=== PATIENT | female | born 1990 | race Caucasian/White ===

== ENCOUNTER 2019-09-14 16:13 | Emergency (ER) | payer SELFPAY ==
[2019-09-14 16:14] VITALS: BP 155/117; PULSE 100; RESP 16; TEMP 36.8; O2SAT 100; BMI 28.7
--- NOTE | 2019-09-14 16:50 | W.ED.GENADLT ---
HPI - General Adult General: Chief complaint: Dental/Oral Stated complaint: JAW PAIN Time Seen by Provider: 09/14/19 16:45 History of Present Illness: HPI narrative: Patient complains about dental abscess the last 2 to 3 days worsening does have pain and swelling. MD complaint: Dental abscess Onset (ago): day(s) Location: mouth (Dental) Severity scale (1-10): 5 Quality: aching Pain Consistency: constant Exacerbating factors: other Associated symptoms: Reports no associated symptoms; Deny chest pain, dyspnea, headache(s), nausea, rash or vomiting Review of Systems Const: Denies: fever, chills or body aches Eyes: Denies: change in vision or blurry vision ENMT: Reports: dental pain; Denies: throat pain or nasal congestion Card: Denies: chest pain or shortness of breath on exertion Resp: Denies: shortness of breath, productive cough or non-productive cough GI: Denies: abdominal pain, nausea or vomiting Musc: Denies: extremity pain Skin/Breast: Denies: rash Neuro: Denies: headache Psych: Denies: anxiety or depression Claude/Lymph: Denies: easy bruising PFS ED PFSH: Social History Smoking and tobacco status: current every day smoker Female Reproductive History: Date of last menstrual period: 08/31/19 Physical Exam Const: COMMON NORMALS: no apparent distress, average body habitus and oriented x3 HENMT: COMMON NORMALS: normocephalic HEAD & SCALP: normal to inspection and normocephalic FACE & SINUS: normal facial exam TEETH & GINGIVA IMAGES: 1. Abscess 29 tooth tooth is fractured and has caries. Eye: COMMON NORMALS: conjunctivae normal GENERAL EYE: normal appearance of both eyes CONJUNCTIVA: Yes conjunctivae normal Neck/C-Spine: COMMON NORMALS: no JVD Chest: COMMONS NORMALS: inspection of chest normal Resp: COMMON NORMALS: normal respiratory effort and clear to auscultation bilaterally AUSCULTATION: clear to auscultation bilaterally Cardio: COMMON NORMALS: no JVD, regular rate and regular rhythm RATE: regular rate RHYTHM: regular rhythm GI: COMMON NORMALS: normal to inspection, nondistended, normoactive bowel sounds Extremity: COMMON NORMALS: normal to inspection and full ROM Neuro: COMMON NORMALS: oriented x3 Course Vital Signs: Vital signs: Vital Signs Temperature 98.2 F 09/14/19 16:14 Pulse Rate 100 09/14/19 16:14 Respiratory Rate 16 09/14/19 16:14 Blood Pressure 155/117 09/14/19 16:14 Pulse Oximetry 100 09/14/19 16:14 Discharge Plan Discharge Patient Disposition: Home, Self-Care Clinical Impression: Dental caries, Dental abscess Condition: Stable Prescriptions: New clindamycin HCl 300 mg capsule 300 mg PO TID 7 Days Qty: 21 RF: 0 tramadol 50 mg tablet 50 mg PO Q6H PRN (Reason: pain) Qty: 10 RF: 0 Discharge Orders: Discharge Order (Routine); Ordered 09/14/19 Ordered By: Brian Allen Discharge Diet: Advance as tolerated Discharge Activity: Resume usual activity Patient Instructions: Dental Abscess (ED) Activity Restrictions/Additional Instructions: Follow-up with medical provider as directed. Take medications as prescribed. Return to the ER or your medical provider if condition worsens. Please read and understand discharge instructions. If any questions ask please. Follow-up with dentist as soon as possible can visit [facility] [place] on Friday night at 6:00 for tooth extraction. Coding Level of Care Code ED Transportation Operations Manager for Adrianna Grier
[2019-09-14 17:03] VITALS: BP 145/106; PULSE 98; RESP 20; O2SAT 96
== END 2019-09-14 17:04 | disposition home or self-care (01) ==
PROVIDERS: Emergency Provider Nurse Practitioner Family
DX: K04.7 Periapical abscess without sinus (principal); K02.9 Dental caries, unspecified; F17.200 Nicotine dependence, unspecified, uncomplicated
CPT/HCPCS: 12345; 99281

== ENCOUNTER 2019-11-30 03:58 | Emergency (ER) | payer SELFPAY ==
[2019-11-30 04:02] VITALS: BP 158/90; PULSE 118; RESP 22; TEMP 36.8; O2SAT 100; BMI 29.7
--- NOTE | 2019-11-30 04:02 | XR_ITS ---
WS: [id number] LEFT ANKLE: 3 VIEW(S) TECHNIQUE: AP, oblique(s) and lateral. HISTORY: Injury/pain COMPARISON: None available. Normal anatomic alignment with no fracture or dislocation. No joint effusion or widening of the ankle mortise. No significant degenerative changes at the joint spaces. No soft tissue abnormality. XR/XR ankle LT min 3V* [id number] IMPRESSION: Normal LEFT ankle.
--- NOTE | 2019-11-30 04:02 | XRR_ITS ---
PROCEDURE INFORMATION: Exam: XR Left Foot Complete Exam date and time: 11/30/2019 4:21 AM Age: 29 years old Clinical indication: Injury or trauma; Fall; Initial encounter; Sprain or strain; Foot; Left; Additional info: Injury/pain TECHNIQUE: Imaging protocol: XR Left foot. Views: 3 or more views. COMPARISON: No relevant prior studies available. FINDINGS: Bones/joints: Normal. Soft tissues: Soft tissue swelling or subcutaneous edema at 5th MTP joint. XR/XR foot LT min 3V* [id number] IMPRESSION: No acute bony findings
--- NOTE | 2019-11-30 04:03 | ED_ITS ---
HPI - Extremity Injury (Lower) General: Chief Complaint: Fall Stated Complaint: left foot injury Time Seen by Provider: 11/30/19 04:00 History of Present Illness: HPI Narrative: Rowan is a nice 29-year-old female who states last night she fell twisting her left foot and ankle. She has increased pain on weightbearing but denies any distal numbness or weakness. She denies any injury above the ankle specifically to the tib-fib area or to the knee. She is not tried anything for this up to this point other than trying to not bear weight. Review of Systems General: Reports: 10 or more systems reviewed and unremarkable except in HPI and below PFSH ED PFSH: Medical History ADHD Substance abuse Social History Smoking and tobacco status: current every day smoker Female Reproductive History: Date of last menstrual period: 08/31/19 Physical Exam Const: COMMON NORMALS: no acute distress, patient oriented x3 and no limitat ions Resp: COMMON NORMALS: normal respiratory effort, No retractions, No use of accessory muscles and clear to auscultation bilaterally AUSCULTATION: clear to auscultation bilaterally Cardio: COMMON NORMALS: regular rate and regular rhythm RATE: regular rate RHYTHM: regular rhythm Extremity: OTHER: Left ankle and foot without swelling or ecchymosis. Patient is diffusely tender to palpation. She is neurovascularly intact with a strong DP pulse and sensation intact to light touch in all areas. I see no sign of joint instability. Capillary refill is less than 3 seconds. Patient has full range of motion although appears to have some pain with doing so. Ambulation was not tested secondary to pain. Neuro: COMMON NORMALS: patient oriented x3 Course Vital Signs: Vital signs: Vital Signs Temperature 98.3 F 11/30/19 04:02 Pulse Rate 74 11/30/19 05:01 Respiratory Rate 18 11/30/19 05:01 Blood Pressure 134/76 11/30/19 05:01 Pulse Oximetry 100 11/30/19 05:01 MDM - Extremity Injury (Lower) MDM Narrative: Medical decision making narrative: Patient is neurovascularly intact and her x-rays show no sign of fracture. Believe she is likely had a severe sprain. Going to discharge her home with supportive care and she can follow-up with [facility] Tapia if her symptoms persist. Imaging Data^: Left Ankle: My impression: No acute fractures or dislocations Left Foot: My impression: No acute fractures or dislocations Discharge Plan Discharge Patient Disposition: Home, Self-Care Clinical Impression: Ankle sprain Qualifiers: Encounter type: initial encounter Involved ligament of ankle: unspecified ligament Laterality: left Qualified Code(s): S93.402A - Sprain of unspecified l igament of left ankle, initial encounter Condition: Stable Prescriptions: No Action tramadol 50 mg tablet 50 mg PO Q6H PRN (Reason: pain) Qty: 10 RF: 0 Discharge Orders: Discharge Order (Routine); Ordered 11/30/19 Ordered By: Gwendolyn Almanza Referrals: Bud Tapia DPM [Physician] - 1-3 days Discharge Diet: Advance as tolerated Discharge Activity: Limit activity as instructed Patient Instructions: Ankle Sprain (ED) Activity Restrictions/Additional Instructions: Please return to the ER immediately for any of the signs or symptoms listed on your discharge instruction sheets, worsening/changing of your symptoms, you are not getting better as quickly as expected, or for ANY other cause or concerns. Use your crutches and splint at all times until your pain is gone. If you continue to have discomfort for more than 2 days be certain to follow-up with the orthopedist of your choice or [facility] Tapia for further evaluation. Discharge Date/Time: 11/30/19 05:05 Coding Level of Care Code ED Resistor Testing Machine Operator for Adrianna Fwjoseph Exam Expanded Problem Focused
[2019-11-30] MEDS: HYDROcodone-acetaminophen 5-325 mg Tablet 1 TAB PO (04:35)
[2019-11-30 05:01] VITALS: BP 134/76; PULSE 74; RESP 18; O2SAT 100
--- NOTE | 2019-11-30 08:24 | DCPLANNER ---
Addendum entered by Macey Bhatia 11/30/19 15:12: Pat from ortho called manager case, stating that after patients information was reviewed by Dr. Tapia, that patient needs to follow up with primary care, and if still having pain in a week, then primary care can refer patient back to orho. Pat stated that she tried to call patient, and was unable to reach patient at this time. Original Note: manager training had a message to schedule a follow up appointment for patient with ortho. manager training called the ortho clinic, spoke with Pat, gave clinic patients information. manager training was told that patients information would be printed and reviewed. Clinic will call manager case and patient with appointment information.
--- NOTE | 2019-12-22 08:16 | DCPLANNER ---
After patients information was reviewed, it is recommended that patient follow up with primary care. If patient continues to have pain, then have primary care refer back to ortho. Clinic called patient and informed patient of this.
== END 2019-11-30 05:05 | disposition home or self-care (01) ==
PROVIDERS: Emergency Provider Emergency Medicine
DX: S93.402A Sprain of unspecified ligament of left ankle, initial encounter (principal); X50.1XXA Overexertion from prolonged static or awkward postures, initial encounter; F17.210 Nicotine dependence, cigarettes, uncomplicated
CPT/HCPCS: 12345; 29515; 73610; 73630; 99283; E0114

== ENCOUNTER 2020-02-05 14:39 | Emergency (ER) | payer SELFPAY ==
[2020-02-05 14:42] VITALS: BP 171/102; PULSE 89; RESP 18; TEMP 36.3; O2SAT 98; BMI 30.5
--- NOTE | 2020-02-05 15:05 | W.ED.NAVMDI ---
Documented by User: Risa De La Fuente ANGÉLICA Dye 02/05/20 17:41 HPI - Nausea/Vomiting/Diarrhea General: Chief complaint: Nausea/Vomiting/Diarrhea Stated complaint: abd and back pain, n/v Time Seen by Provider: 02/05/20 14:52 History of Present Illness: HPI Narrative: 29-year-old female patient presents to the emergency department with approximately 1 month history of nausea vomiting diarrhea. She reports nausea vomiting with diarrhea on and off. Reports ate chicken this a.m. without any vomiting but ate a peach just prior to arrival and did experience vomiting. She reports diarrhea 5-6 times this morning. She denies hematemesis or hematochezia, states night sweats, previous use of methamphetamine, substance abuse, with last use approximately 1 year ago. She denies EtOH use MD elicited complaint: nausea, vomiting, diarrhea and abdominal pain Description of vomiting: food contents and watery Associated nausea: Yes Location of pain: Suprapubic Pain consistency: intermittent Severity: moderate Quality: cramping Associated symtoms: Reports nausea; Denies chest pain, diaphoresis, dysuria, headache(s) or palpitations Review of Systems General: Reports: 10 or more systems reviewed and unremarkable except in HPI and below Const: Denies: fever(s) or diaphoresis Eyes: Denies: blurry vision or eye redness ENMT: Denies: throat pain, dental pain or disequilibrium Card: Denies: chest pain, palpitations or irregular heart rhythm Resp: Denies: dyspnea, productive cough or wheezing GI: Reports: abdominal pain, nausea, vomiting and diarrhea; Denies: constipation : Denies: difficulty voiding or dysuria Musc: Denies: back pain Skin/Breast: Denies: rash or pruritus Neuro: Denies: headache(s), weakness in extremities or behavioral changes Claude/Lymph: Denies: easy bruising PFSH ED PFSH: Medical History ADHD Substance abuse Social History Smoking and tobacco status: current every day smoker Female Reproductive History: Date of last menstrual period: 08/31/19 Physical Exam Const: COMMON NORMALS: no acute distress, patient oriented x3 and alert GENERAL APPEARANCE: cooperative, comfortable and well hydrated HENMT: COMMON NORMALS: normocephalic, Normal external nose present and moist oral mucous membranes HEAD & SCALP: normocephalic NOSE: Normal external nose present Eye: COMMON NORMALS: Equal, round and reactive pupils present and EOMs intact bilaterally GENERAL EYE: appearance normal, both eyes and all related structures PUPIL: Yes Equal, round and reactive pupils present Neck/C-Spine: COMMON NORMALS: full ROM and no lymphadenopathy GENERAL: Yes normal visual inspection and Yes trachea midline CERVICAL SPINE: Yes cervical ROM normal Lymph: LYMPHATIC: no lymphadenopathy noted Chest: COMMONS NORMALS: normal inspection of the chest Resp: COMMON NORMALS: normal respiratory effort and clear to auscultation bilaterally AUSCULTATION: clear to auscultation bilaterally Cardio: COMMON NORMALS: regular rhythm, S1 normal heart sound present and S2 normal heart sound present RHYTHM: regular rhythm HEART SOUNDS: S1 normal heart sound present and S2 normal heart sound present GI: COMMON NORMALS: Soft to palpation INSPECTION: Yes normal to inspection, No abdominal distension and Yes other (RLQ and right flank with lower suprapubic pain with palpation ) AUSCULTATION: Yes Hypoactive bowel sounds present PALPATION: Yes Soft to palpation, No Hernia present and No Rebound tenderness present RECTAL EXAM: deferred : BLADDER/KIDNEY EXAM: Yes CVA tenderness EXTERNAL FEMALE EXAM: No Hernia present Back/Pelvis: COMMON NORMALS: thoracic and lumbar spine normal to inspection GENERAL BACK: Yes CVA tenderness CVA tenderness: right Extremity: COMMON NORMALS: normal to inspection and capillary refill normal Neuro: COMMON NORMALS: patient oriented x3 and no focal motor deficits SENSORIUM/ORIENTATION: Yes alert Psych: COMMON NORMALS: mental status grossly normal, Normal thought process present and cooperative ACTIVITY/MOTOR BEHAVIOR: Yes appropriate eye contact THOUGHT PROCESS: Normal thought process present Skin: COMMON NORMALS: no rashes or lesions noted and turgor normal GENERAL SKIN EXAM: no rashes or lesions noted and turgor normal Course Vital Signs: Vital signs: Vital Signs Temperature 97.4 F L 02/05/20 14:42 Pulse Rate 69 02/05/20 19:28 Respiratory Rate 16 02/05/20 19:28 Blood Pressure 128/68 02/05/20 19:28 Pulse Oximetry 97 02/05/20 19:28 MDM - Nausea/Vomiting/Diarrhea Lab Data: Labs: Lab Results 02/05/20 02/05/20 02/05/20 Range/Units 15:10 15:10 15:10 WBC 11.7 H (4.0-10.0) 10^3/ uL RBC 4.35 (4.1-5.3) 10^6/u L Hgb 12.4 (11.5-15.3) g/dL Hct 38.4 (37.0-47.0) % MCV 88.3 (81-99) fL MCH 28.5 (28.0-34.0) pg MCHC 32.3 (30.0-36.0) g/dL RDW 12.4 (12.1-15.1) % Plt Count 308 (130-400) 10^3/c mm MPV 9.4 (7.4-10.4) fL Neut % (Auto) 72.2 % Lymph % (Auto) 21.1 % Collier % (Auto) 5.3 % Eos % (Auto) 0.9 % Baso % (Auto) 0.3 % Neut # (Auto) 8.47 H (1.8-7.7) 10^3/u L Lymph # (Auto) 2.5 (0.8-4.8) 10^3/u L Collier # (Auto) 0.6 (0.2-0.9) 10^3/u L Eos # (Auto) 0.1 (0.0-0.8) 10^3/u L Baso # (Auto) 0.0 (0.0-0.1) 10^3/u L Nucleated RBC % (a uto) 0 % Nucleated RBCs # 0.0 /100WBC Sodium 141 (136-145) mmol/L Potassium 3.4 L (3.5-5.1) mmol/L Chloride 106 (98-107) mmol/L Carbon Dioxide 25 (22-29) mmol/L Anion Gap 13.4 (5-19) BUN 7 (6-20) mg/dL Creatinine 0.6 (0.5-0.9) mg/dL GFR Calculation 117.4 (90-130) mL/min Glucose 120 H (65-115) mg/dL Calculated Osmolal ity 289 (285-295) mOsm/k g Calcium 9.3 (8.5-10.5) mg/dL Total Bilirubin 0.4 (0.15-1.2) mg/dL AST 14 (0-32) U/L ALT 15 (0-33) U/L Alkaline Phosphata se 89 (35-105) IU/L Total Protein 6.4 L (6.6-8.7) g/dL Albumin 4.1 (3.5-5.2) g/dL Globulin 2.3 (1.3-4.6) g/dL Lipase 38 (13-60) U/L Urine Color (Yellow) Urine Appearance (CLEAR) Urine pH (5-7) Ur Specific Gravit y (1.005-1.030) Urine Protein (Negative) Urine Glucose (UA) (Normal) Urine Ketones (Negative) Urine Blood (Negative) Urine Nitrate (Negative) Urine Bilirubin (NEGATIVE) Urine Urobilinogen (Negative) mg/dL Ur Leukocyte Mari ase (Negative) Urine RBC (0-2) /hpf Urine WBC (0-5) /hpf Ur Squamous Epith Cells (0-5) Amorphous Sediment Urine Bacteria (NONE) Urine Mucus Urine HCG, Qual Negative (Negative) 02/05/20 Range/Units 15:25 WBC (4.0-10.0) 10^3/ uL RBC (4.1-5.3) 10^6/u L Hgb (11.5-15.3) g/dL Hct (37.0-47.0) % MCV (81-99) fL MCH (28.0-34.0) pg MCHC (30.0-36.0) g/dL RDW (12.1-15.1) % Plt Count (130-400) 10^3/c mm MPV (7.4-10.4) fL Neut % (Auto) % Lymph % (Auto) % Collier % (Auto) % Eos % (Auto) % Baso % (Auto) % Neut # (Auto) (1.8-7.7) 10^3/u L Lymph # (Auto) (0.8-4.8) 10^3/u L Collier # (Auto) (0.2-0.9) 10^3/u L Eos # (Auto) (0.0-0.8) 10^3/u L Baso # (Auto) (0.0-0.1) 10^3/u L Nucleated RBC % (a uto) % Nucleated RBCs # /100WBC Sodium (136-145) mmol/L Potassium (3.5-5.1) mmol/L Chloride (98-107) mmol/L Carbon Dioxide (22-29) mmol/L Anion Gap (5-19) BUN (6-20) mg/dL Creatinine (0.5-0.9) mg/dL GFR Calculation (90-130) mL/min Glucose (65-115) mg/dL Calculated Osmolal ity (285-295) mOsm/k g Calcium (8.5-10.5) mg/dL Total Bilirubin (0.15-1.2) mg/dL AST (0-32) U/L ALT (0-33) U/L Alkaline Phosphata se (35-105) IU/L Total Protein (6.6-8.7) g/dL Albumin (3.5-5.2) g/dL Globulin (1.3-4.6) g/dL Lipase (13-60) U/L Urine Color Yellow (Yellow) Urine Appearance Sl hazy (CLEAR) Urine pH 5 (5-7) Ur Specific Gravit y 1.020 (1.005-1.030) Urine Protein Neg (Negative) Urine Glucose (UA) Norm (Normal) Urine Ketones Negative (Negative) Urine Blood Neg (Negative) Urine Nitrate Negative (Negative) Urine Bilirubin Neg (NEGATIVE) Urine Urobilinogen Norm (Negative) mg/dL Ur Leukocyte Mari ase Negative (Negative) Urine RBC None (0-2) /hpf Urine WBC 0-4 H (0-5) /hpf Ur Squamous Epith Cells 10-15 H (0-5) Amorphous Sediment Not Reportable Urine Bacteria 2+ H (NONE) Urine Mucus 2+ Urine HCG, Qual (Negative) Discharge Plan Discharge Patient Disposition: Home Clinical Impression: Biliary colic symptom Acid reflux Qualifiers: Esophagitis presence: esophagitis presence not specified Qualified Code(s): K21.9 - Gastro-esophageal reflux disease without esophagitis Condition: Stable Prescriptions: New dicyclomine 20 mg tablet 20 mg PO QID Qty: 30 RF: 0 Zofran 4 mg tablet 4 mg PO Q8H PRN (Reason: nausea and vomiting) Qty: 30 RF: 0 pantoprazole 40 mg tablet,delayed release (DR/EC) 40 mg PO DAILY Qty: 30 RF: 0 No Action Benadryl 25 mg Capsule 100 mg PO BEDTIME PRN (Reason: UNKNOWN) RF: 0 ibuprofen 200 mg Tablet 1,000 mg PO PRN RF: 0 trazodone 2 tab PO BEDTIME PRN (Reason: Sleep) RF: 0 Discharge Orders: Discharge Order (Routine); Ordered 02/05/20 Ordered By: Deejay Melendez Discharge Diet: Advance as tolerated and Clear Liquid Patient Instructions: Biliary Colic (ED), Gastroesophageal Reflux Disease (ED) Activity Restrictions/Additional Instructions: Follow-up with medical provider as directed. Case management should be contacting you in the next several days to set up an appointment with the primary care physician. For the next 24 hours have a clear liquid diet and then advance as tolerated. Take medications as prescribed. Return to the ER or your medical provider if condition worsens. Please read and understand discharge instructions. If any questions, please ask. Discharge Date/Time: 02/05/20 19:35 Sign Out Sign Out Data: Patient Sign Out occurred on 02/05/20 at 17:42. Patient's care was discussed, and care was transferred from to CELESTE Baldwin. Coding Level of Care Code ED Supervisor Riprap Placing for Chg Fwd Exam Comprehensive Documented by User: CELESTE Baldwin 02/06/20 01:16 HPI - Nausea/Vomiting/Diarrhea General: Chief complaint: Nausea/Vomiting/Diarrhea Stated complaint: abd and back pain, n/v Time Seen by Provider: 02/05/20 14:52 [facility] PFSH: Medical History ADHD Substance abuse Social History Smoking and tobacco status: current every day smoker Course Reevaluation(s): Reevaluation #1: Patient's symptoms had improved while here in the ED. Patient is ready to go home and rest. Vital Signs: Vital signs: Vital Signs Temperature 97.4 F L 02/05/20 14:42 Pulse Rate 69 02/05/20 19:28 Respiratory Rate 16 02/05/20 19:28 Blood Pressure 128/68 02/05/20 19:28 Pulse Oximetry 97 02/05/20 19:28 MDM - Nausea/Vomiting/Diarrhea MDM Narrative: Medical decision making narrative: Patient is a 29-year-old female who comes to the ED with abdominal pain nausea, vomiting and diarrhea. I took over patient care from Risa Dye. She performed the initial work-up H&P, labs and imaging. She told me she was waiting on patient CT report to make decision on plan of care. Patient's symptoms improved while here in the ED. CT of abdomen showed contracted gallbladder with no stones seen. Gallbladder wall thickness of 3 mm. Patient was discharged with biliary colic symptoms and acid reflux. She was discharged with a prescription for pantoprazole, Zofran and dicyclomine. PCP referral order was placed with case management. Clear liquid diet for the next 24 hours and advance as tolerated. Patient was told to return to ED if symptoms worsen. Patient understood and agreed with plan. Lab Data: Attestation: I reviewed the patient's lab results. Labs: Lab Results 02/05/20 02/05/20 02/05/20 Range/Units 15:10 15:10 15:10 WBC 11.7 H (4.0-10.0) 10^3/ uL RBC 4.35 (4.1-5.3) 10^6/u L Hgb 12.4 (11.5-15.3) g/dL Hct 38.4 (37.0-47.0) % MCV 88.3 (81-99) fL MCH 28.5 (28.0-34.0) pg MCHC 32.3 (30.0-36.0) g/dL RDW 12.4 (12.1-15.1) % Plt Count 308 (130-400) 10^3/c mm MPV 9.4 (7.4-10.4) fL Neut % (Auto) 72.2 % Lymph % (Auto) 21.1 % Collier % (Auto) 5.3 % Eos % (Auto) 0.9 % Baso % (Auto) 0.3 % Neut # (Auto) 8.47 H (1.8-7.7) 10^3/u L Lymph # (Auto) 2.5 (0.8-4.8) 10^3/u L Collier # (Auto) 0.6 (0.2-0.9) 10^3/u L Eos # (Auto) 0.1 (0.0-0.8) 10^3/u L Baso # (Auto) 0.0 (0.0-0.1) 10^3/u L Nucleated RBC % (a uto) 0 % Nucleated RBCs # 0.0 /100WBC Sodium 141 (136-145) mmol/L Potassium 3.4 L (3.5-5.1) mmol/L Chloride 106 (98-107) mmol/L Carbon Dioxide 25 (22-29) mmol/L Anion Gap 13.4 (5-19) BUN 7 (6-20) mg/dL Creatinine 0.6 (0.5-0.9) mg/dL GFR Calculation 117.4 (90-130) mL/min Glucose 120 H (65-115) mg/dL Calculated Osmolal ity 289 (285-295) mOsm/k g Calcium 9.3 (8.5-10.5) mg/dL Total Bilirubin 0.4 (0.15-1.2) mg/dL AST 14 (0-32) U/L ALT 15 (0-33) U/L Alkaline Phosphata se 89 (35-105) IU/L Total Protein 6.4 L (6.6-8.7) g/dL Albumin 4.1 (3.5-5.2) g/dL Globulin 2.3 (1.3-4.6) g/dL Lipase 38 (13-60) U/L Urine Color (Yellow) Urine Appearance (CLEAR) Urine pH (5-7) Ur Specific Gravit y (1.005-1.030) Urine Protein (Negative) Urine Glucose (UA) (Normal) Urine Ketones (Negative) Urine Blood (Negative) Urine Nitrate (Negative) Urine Bilirubin (NEGATIVE) Urine Urobilinogen (Negative) mg/dL Ur Leukocyte Mari ase (Negative) Urine RBC (0-2) /hpf Urine WBC (0-5) /hpf Ur Squamous Epith Cells (0-5) Amorphous Sediment Urine Bacteria (NONE) Urine Mucus Urine HCG, Qual Negative (Negative) 02/05/20 Range/Units 15:25 WBC (4.0-10.0) 10^3/ uL RBC (4.1-5.3) 10^6/u L Hgb (11.5-15.3) g/dL Hct (37.0-47.0) % MCV (81-99) fL MCH (28.0-34.0) pg MCHC (30.0-36.0) g/dL RDW (12.1-15.1) % Plt Count (130-400) 10^3/c mm MPV (7.4-10.4) fL Neut % (Auto) % Lymph % (Auto) % Collier % (Auto) % Eos % (Auto) % Baso % (Auto) % Neut # (Auto) (1.8-7.7) 10^3/u L Lymph # (Auto) (0.8-4.8) 10^3/u L Collier # (Auto) (0.2-0.9) 10^3/u L Eos # (Auto) (0.0-0.8) 10^3/u L Baso # (Auto) (0.0-0.1) 10^3/u L Nucleated RBC % (a uto) % Nucleated RBCs # /100WBC Sodium (136-145) mmol/L Potassium (3.5-5.1) mmol/L Chloride (98-107) mmol/L Carbon Dioxide (22-29) mmol/L Anion Gap (5-19) BUN (6-20) mg/dL Creatinine (0.5-0.9) mg/dL GFR Calculation (90-130) mL/min Glucose (65-115) mg/dL Calculated Osmolal ity (285-295) mOsm/k g Calcium (8.5-10.5) mg/dL Total Bilirubin (0.15-1.2) mg/dL AST (0-32) U/L ALT (0-33) U/L Alkaline Phosphata se (35-105) IU/L Total Protein (6.6-8.7) g/dL Albumin (3.5-5.2) g/dL Globulin (1.3-4.6) g/dL Lipase (13-60) U/L Urine Color Yellow (Yellow) Urine Appearance Sl hazy (CLEAR) Urine pH 5 (5-7) Ur Specific Gravit y 1.020 (1.005-1.030) Urine Protein Neg (Negative) Urine Glucose (UA) Norm (Normal) Urine Ketones Negative (Negative) Urine Blood Neg (Negative) Urine Nitrate Negative (Negative) Urine Bilirubin Neg (NEGATIVE) Urine Urobilinogen Norm (Negative) mg/dL Ur Leukocyte Mari ase Negative (Negative) Urine RBC None (0-2) /hpf Urine WBC 0-4 H (0-5) /hpf Ur Squamous Epith Cells 10-15 H (0-5) Amorphous Sediment Not Reportable Urine Bacteria 2+ H (NONE) Urine Mucus 2+ Urine HCG, Qual (Negative) Imaging Data^: CT Abd/Pel: Attestation: I personally reviewed and interpreted this imaging study as follows: Radiologist's impression: [address] [address] [address] Scan Report Signed Patient: Rowan Howell Unit #: [id number] : 1990 Age/Sex: 29 / F ADM Date: 02/05/20 Loc: ER Room/Bed: Attending Dr: Ordering Provider/Ordering MD: Risa Dye Date of Service: 02/05/20 Procedure(s): CT abdomen pelvis w con* [id number] Accession Number(s): [id number] Report Number: [id number] PROCEDURE INFORMATION: Exam: CT Abdomen And Pelvis With Contrast Exam date and time: 02/05/2020 5:35 PM Age: 29 years old Clinical indication: Abdominal pain; Localized; Right lower quadrant (rlq); Patient HX: Rlq/r flank pain w n/v intermittent x 1 week TECHNIQUE: Imaging protocol: Computed tomography of the abdomen and pelvis with intravenous contrast. Radiation optimization: All CT scans at this facility use at least one of these dose optimization techniques: automated exposure control; mA and/or kV adjustment per patient size (includes targeted exams where dose is matched to clinical indication); or iterative reconstruction. Contrast material: OMNI 300; Contrast volume: 95 ml; Contrast route: INTRAVENOUS (IV); COMPARISON: CT Abdomen/Pelvis Renal [id number] 07/22/2017 9:24 PM RADIATION DOSE METRICS: Total DLP (mGy-cm): 1030.44 FINDINGS: Liver: Focal fatty infiltration in the left liver lobe. Gallbladder and bile ducts: Gallbladder is partially contracted with wall enhancement measuring up to 3 mm. Pancreas: Normal. No ductal dilation. Spleen: Normal. No splenomegaly. Adrenals: Normal. No mass. Kidneys and ureters: Normal. No hydronephrosis. Stomach and bowel: Unremarkable. No obstruction. No mucosal thickening. Appendix: The appendix is visualized and is normal. Intraperitoneal space: Unremarkable. No free air. No significant fluid collection. Vasculature: Unremarkable. No abdominal aortic aneurysm. Lymph nodes: Unremarkable. No enlarged lymph nodes. Bladder: Unremarkable as visualized. Reproductive: Unremarkable as visualized. Bones/joints: Disc space narrowing with disc bulge at L5-S1. No compression fracture. Soft tissues: Unremarkable. CT/CT abdomen pelvis w con* [id number] IMPRESSION: 1. No renal calculus or evidence for appendicitis. 2. Contracted gallbladder with mild wall enhancement is of doubtful clinical significance. Radiation Dose CTDIVOL = (mGy): DLP = 1030.44 (mGy-cm) Dictated By: Kirby Prieto Signed By: Kirby Prieto Signed Date/Time: 02/05/201804 DD/ 02 Discharge Plan Discharge Patient Disposition: Home Clinical Impression: Biliary colic symptom Acid reflux Qualifiers: Esophagitis presence: esophagitis presence not specified Qualified Code(s): K21.9 - Gastro-esophageal reflux disease without esophagitis Condition: Stable Prescriptions: New dicyclomine 20 mg tablet 20 mg PO QID Qty: 30 RF: 0 Zofran 4 mg tablet 4 mg PO Q8H PRN (Reason: nausea and vomiting) Qty: 30 RF: 0 pantoprazole 40 mg tablet,delayed release (DR/EC) 40 mg PO DAILY Qty: 30 RF: 0 No Action Benadryl 25 mg Capsule 100 mg PO BEDTIME PRN (Reason: UNKNOWN) RF: 0 ibuprofen 200 mg Tablet 1,000 mg PO PRN RF: 0 trazodone 2 tab PO BEDTIME PRN (Reason: Sleep) RF: 0 Discharge Orders: Discharge Order (Routine); Ordered 02/05/20 Ordered By: Deejay Melendez Discharge Diet: Advance as tolerated and Clear Liquid Patient Instructions: Biliary Colic (ED), Gastroesophageal Reflux Disease (ED) Activity Restrictions/Additional Instructions: Follow-up with medical provider as directed. Case management should be contacting you in the next several days to set up an appointment with the primary care physician. For the next 24 hours have a clear liquid diet and then advance as tolerated. Take medications as prescribed. Return to the ER or your medical provider if condition worsens. Please read and understand discharge instructions. If any questions, please ask. Discharge Date/Time: 02/05/20 19:35 Sign Out Sign Out Data: Patient Sign Out occurred on 02/05/20 at 17:42. Patient's care was discussed, and care was transferred from to CELESTE Baldwin. Coding Level of Care Code ED Supervisor Riprap Placing for Adrianna Fwd Exam Comprehensive
[2020-02-05 15:20] LABS: Basophils % 0.3 %; Eosinophils # 0.1 10^3/uL (0.0-0.8); Eosinophils % 0.9 %; Hematocrit 38.4 % (37.0-47.0); Hemoglobin 12.4 g/dL (11.5-15.3); Lymphocytes # 2.5 10^3/uL (0.8-4.8); Lymphocytes % 21.1 %; Mean Corpuscular HGB Conc 32.3 g/dL (30.0-36.0); Mean Corpuscular Hemoglobin 28.5 pg (28.0-34.0); Mean Corpuscular Volume 88.3 fL (81-99); Mean Platelet Volume 9.4 fL (7.4-10.4); Monocytes # 0.6 10^3/uL (0.2-0.9); Monocytes % 5.3 %; Neutrophils # 8.47 10^3/uL (1.8-7.7); Neutrophils % 72.2 %; Nucleated Red Blood Cells % 0 %; Platelet Count 308 10^3/cmm (130-400); Red Blood Count 4.35 10^6/uL (4.1-5.3); Red Cell Distribution Width 12.4 % (12.1-15.1); White Blood Count 11.7 10^3/uL (4.0-10.0)
[2020-02-05] MEDS: ondansetron 2 mg/ML SDV 2 mL 4 MG IVP (15:22)
[2020-02-05] MEDS: sodium chloride 0.9% 500 ML 999 ML IV (15:23)
[2020-02-05 15:35] LABS: Alanine Aminotransferase 15 U/L (0-33); Albumin Level 4.1 g/dL (3.5-5.2); Alkaline Phosphatase 89 IU/L (35-105); Anion Gap 13.4 (5-19); Aspartate Amino Transferase 14 U/L (0-32); Blood Urea Nitrogen 7 mg/dL (6-20); Calcium 9.3 mg/dL (8.5-10.5); Carbon Dioxide 25 mmol/L (22-29); Chloride 106 mmol/L (98-107); Globulin 2.3 g/dL (1.3-4.6); Glomerular Filtration Rate 117.4 mL/min (90-130); Glucose 120 mg/dL (65-115); Lipase 38 U/L (13-60); Osmolality Calculated 289 mOsm/kg (285-295); Potassium 3.4 mmol/L (3.5-5.1); Sodium 141 mmol/L (136-145); Total Bilirubin 0.4 mg/dL (0.15-1.2); Total Protein 6.4 g/dL (6.6-8.7)
[2020-02-05 15:45] VITALS: BP 133/82; PULSE 80; RESP 18; O2SAT 99
[2020-02-05 16:00] LABS: Add Urine Microscopic? YES; Bilirubin Urine Neg (NEGATIVE); Blood Urine Neg (Negative); Glucose Urine UA Norm (Normal); Ketones Urine Negative (Negative); Leukocyte Esterase Urine Negative (Negative); Nitrate Urine Negative (Negative); Protein Urine Neg (Negative); Urine Appearance SL Hazy (CLEAR); Urine Color Yellow (Yellow); Urobilinogen Urine Norm (Negative); pH Urine 5 (5-7)
[2020-02-05 16:02] LABS: Bacteria Urine 2+; Mucus Urine 2+; WBC Urine 0-4 /hpf (0-5)
[2020-02-05] MEDS: potassium chloride ER 10 mEq Tablet 20 MEQ PO (16:02)
[2020-02-05 16:03] LABS: Add Urine Culture? No
--- NOTE | 2020-02-05 16:21 | CTR_ITS ---
PROCEDURE INFORMATION: Exam: CT Abdomen And Pelvis With Contrast Exam date and time: 02/05/2020 5:35 PM Age: 29 years old Clinical indication: Abdominal pain; Localized; Right lower quadrant (rlq); Patient HX: Rlq/r flank pain w n/v intermittent x 1 week TECHNIQUE: Imaging protocol: Computed tomography of the abdomen and pelvis with intravenous contrast. Radiation optimization: All CT scans at this facility use at least one of these dose optimization techniques: automated exposure control; mA and/or kV adjustment per patient size (includes targeted exams where dose is matched to clinical indication); or iterative reconstruction. Contrast material: OMNI 300; Contrast volume: 95 ml; Contrast route: INTRAVENOUS (IV); COMPARISON: CT Abdomen/Pelvis Renal [id number] 07/22/2017 9:24 PM RADIATION DOSE METRICS: Total DLP (mGy-cm): 1030.44 FINDINGS: Liver: Focal fatty infiltration in the left liver lobe. Gallbladder and bile ducts: Gallbladder is partially contracted with wall enhancement measuring up to 3 mm. Pancreas: Normal. No ductal dilation. Spleen: Normal. No splenomegaly. Adrenals: Normal. No mass. Kidneys and ureters: Normal. No hydronephrosis. Stomach and bowel: Unremarkable. No obstruction. No mucosal thickening. Appendix: The appendix is visualized and is normal. Intraperitoneal space: Unremarkable. No free air. No significant fluid collection. Vasculature: Unremarkable. No abdominal aortic aneurysm. Lymph nodes: Unremarkable. No enlarged lymph nodes. Bladder: Unremarkable as visualized. Reproductive: Unremarkable as visualized. Bones/joints: Disc space narrowing with disc bulge at L5-S1. No compression fracture. Soft tissues: Unremarkable. CT/CT abdomen pelvis w con* [id number] IMPRESSION: 1. No renal calculus or evidence for appendicitis. 2. Contracted gallbladder with mild wall enhancement is of doubtful clinical significance. Radiation Dose CTDIVOL = (mGy): DLP = 1030.44 (mGy-cm)
[2020-02-05 17:00] VITALS: BP 152/80; PULSE 78; RESP 18; O2SAT 99
[2020-02-05] MEDS: ketorolac 30 mg/mL INJ IVP (17:04)
[2020-02-05] MEDS: iohexol 300 mg/mL 100 mL Btl IV (17:41)
[2020-02-05] MEDS: HYDROcodone-acetaminophen 7.5-325 mg Tablet 1 TAB PO (19:27)
[2020-02-05 19:28] VITALS: BP 128/68; PULSE 69; RESP 16; O2SAT 97
--- NOTE | 2020-02-07 14:41 | PC.SOCIAL ---
Called and left a voicemail for the patient to call me back so I can set up a PCP with them.
== END 2020-02-05 19:35 | disposition home or self-care (01) ==
PROVIDERS: Nurse Practitioner Family; Emergency Provider Physician Assistant
DX: K21.9 Gastro-esophageal reflux disease without esophagitis (principal); F17.210 Nicotine dependence, cigarettes, uncomplicated
CPT/HCPCS: 12345; 74177; 80053; 81001; 81003; 81025; 83690; 85025; 96374; 96375; 99283; J1885; J2405; J7040; Q9967

== ENCOUNTER 2020-05-08 11:28 | Emergency (ER) | payer SELFPAY ==
--- NOTE | 2020-05-08 11:31 | ECG_ITS ---
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
--- NOTE | 2020-05-08 11:31 | XRR_ITS ---
PROCEDURE INFORMATION: Exam: XR Chest, 1 View Exam date and time: 05/08/2020 12:07 PM Age: 30 years old Clinical indication: Chest pain and chest pressure; Type not specified; Patient HX: Chest tightness and heaviness. PT in handcuffs, unable to remove bra; Additional info: Cp TECHNIQUE: Imaging protocol: XR of the chest Views: 1 view. COMPARISON: No relevant prior studies available. FINDINGS: Lungs: Unremarkable. No consolidation. Pleural space: Unremarkable. No pleural effusion. No pneumothorax. Heart/Mediastinum: Unremarkable. No cardiomegaly. Bones/joints: Unremarkable. XR/XR chest 1V portable [id number] IMPRESSION: No acute findings.
[2020-05-08 11:33] VITALS: BP 151/92; PULSE 98; RESP 18; TEMP 36.8; O2SAT 98; BMI 27.2
--- NOTE | 2020-05-08 11:35 | PC.NURSE ---
Pt resting quietly in bed at this time. Pt is restrained by law enforcement handcuffs as she is in their custody. equal opportunity officer present at bedside at this time.
--- NOTE | 2020-05-08 11:44 | W.ED.CHESTPA ---
HPI - Chest Pain General: Chief Complaint: Chest Pain Stated Complaint: CHEST TIGHTNESS/ CHEST HEAVINESS Time Seen by Provider: 05/08/20 11:31 Source: patient Mode of arrival: other (police) Limitations: no limitations History of Present Illness: HPI narrative: 30-year-old female who presents here from residential. States she has been in residential for 1 week of a 60-day sentence. She states been having extreme anxiety and does not have her Prozac there. She states she had some suicidal thoughts no specific plan. Patient states today though she started having some chest pain and dyspnea and a panic attack. She states this feels like her anxiety and panic attacks in the past. Denies any worsening improving factors. Associated symptoms: Deny abdominal pain, dyspnea, fever(s), nausea or vomiting Review of Systems Const: Denies: fever(s), chills, body aches or change in appetite Eyes: Denies: blurry vision or eye discomfort ENMT: Denies: throat pain or dental pain Card: Reports: chest pain Resp: Denies: dyspnea GI: Denies: abdominal pain, nausea, vomiting or diarrhea : Denies: dysuria Musc: Denies: neck pain or back pain Skin/Breast: Denies: rash Neuro: Denies: headache(s) Psych: Reports: anxiety Claude/Lymph: Denies: easy bruising All/Imm: Denies: urticaria PFSH ED PFSH: Medical History (Updated 05/08/20 @ 12:25 by Adriana Antoine MD) ADHD Substance abuse Social History Smoking and tobacco status: current every day smoker Female Reproductive History: Date of last menstrual period: 08/31/19 Physical Exam Const: COMMON NORMALS: no acute distress, patient oriented x3 and healthy appearing HENMT: COMMON NORMALS: normocephalic and atraumatic HEAD & SCALP: normocephalic and atraumatic Eye: COMMON NORMALS: Equal, round and reactive pupils present and EOMs intact bilaterally PUPIL: Yes Equal, round and reactive pupils present Neck/C-Spine: COMMON NORMALS: full ROM and supple Chest: COMMONS NORMALS: normal inspection of the chest and normal palpation of entire chest wall Resp: COMMON NORMALS: normal respiratory effort, No retractions, No use of accessory muscles and clear to auscultation bilaterally AUSCULTATION: clear to auscultation bilaterally Cardio: COMMON NORMALS: regular rate, regular rhythm and No murmurs present (Cardio) RATE: regular rate RHYTHM: regular rhythm GI: COMMON NORMALS: Normal to inspection, nondistended, normoactive bowel sounds present, Soft to palpation, non-tender and no masses PALPATION: Yes Soft to palpation Extremity: COMMON NORMALS: normal to inspection and full ROM Neuro: COMMON NORMALS: patient oriented x3, moves all extremities and no focal motor deficits Psych: COMMON NORMALS: mental status grossly normal, Normal thought process present and cooperative THOUGHT PROCESS: Normal thought process present Skin: COMMON NORMALS: no rashes or lesions noted and no wounds GENERAL SKIN EXAM: no rashes or lesions noted Course Vital Signs: Vital signs: Vital Signs Temperature 97.6 F 05/08/20 12:37 Pulse Rate 94 05/08/20 12:37 Respiratory Rate 18 05/08/20 12:37 Blood Pressure 151/92 05/08/20 12:37 Pulse Oximetry 98 05/08/20 12:37 MDM - Chest Pain MDM Narrative: Medical decision making narrative: Patient presents here with chest pain and dyspnea that is atypical in nature. Patient is well-appearing here having an anxiety attack. She feels much improved after Ativan no longer has any symptoms. X-ray and EKG are normal. She has no signs of cardiac cause. Patient states she had been suicidal but denies any current suicidality or plans. She states she just needs her Prozac. Will prescribe her Prozac. Officer states they will put her on psych watch at the residential. Patient discharged into police custody at this time. Imaging Data^: CXR: Attestation: I personally reviewed and interpreted this imaging study as follows: My impression: no acute abnormalities EKG Data^: EKG 1: Attestation: I personally reviewed and interpreted this EKG as follows: EKG interpretation date: 05/08/20 EKG interpretation time: 11:41 Interpretation: nsr hr [address] or t wave abnormalities qrs 108 qtc 383 Discharge Plan Discharge Patient Disposition: Home Clinical Impression: Atypical chest pain, Anxiety Condition: Stable Prescriptions: New Prozac 20 mg capsule 20 mg PO DAILY Qty: 60 RF: 0 Vistaril 50 mg capsule 50 mg PO ONCE PRN (Reason: insomnia) Qty: 60 RF: 0 No Action dicyclomine 20 mg tablet 20 mg PO QID Qty: 30 RF: 0 ondansetron HCl [Zofran] 4 mg tablet 4 mg PO Q8H PRN (Reason: nausea and vomiting) Qty: 30 RF: 0 pantoprazole 40 mg tablet,delayed release (DR/EC) 40 mg PO DAILY Qty: 30 RF: 0 Discharge Orders: Discharge Order (Routine); Ordered 05/08/20 Ordered By: Adriana Antoine Discharge Diet: Advance as tolerated Discharge Activity: Resume usual activity Patient Instructions: Chest Pain (ED), Anxiety (ED) Discharge Date/Time: 05/08/20 12:40 Coding Level of Care Code ED Surgical Nurse Practitioner for Adrianna Fwjoseph Exam Comprehensive
[2020-05-08] MEDS: LORazepam 2 mg Tablet PO (11:47)
[2020-05-08 11:50] VITALS: BP 151/92; PULSE 92; RESP 20; O2SAT 98
[2020-05-08 12:37] VITALS: BP 151/92; PULSE 94; RESP 18; TEMP 36.4; O2SAT 98
== END 2020-05-08 12:40 | disposition home or self-care (01) ==
PROVIDERS: Emergency Provider Emergency Medicine
DX: F41.9 Anxiety disorder, unspecified (principal); R07.89 Other chest pain; F17.210 Nicotine dependence, cigarettes, uncomplicated
CPT/HCPCS: 12345; 71045; 93005; 99282; 99283

== ENCOUNTER 2020-10-10 20:40 | Emergency (ER) | payer SELFPAY ==
[2020-10-10 21:15] VITALS: BP 159/102; PULSE 85; RESP 18; TEMP 36.6; O2SAT 99; BMI 31.6
--- NOTE | 2020-10-10 22:21 | W.ED.HA ---
HPI - Headache General: Chief Complaint: Headache Stated Complaint: migraine x4days Time Seen by Provider: 10/10/20 21:15 Source: patient Mode of arrival: ambulatory Limitations: no limitations History of Present Illness: HPI Narrative: 30-year-old female states she has a extensive history of migraine headaches. States had a migraine over the last 3 to 4 days that began gradually. She states that this is similar to her previous migraines she has photophobia. She rates her headache a 7-10. States she also has some neck pain. States that on the left side of her neck and is very tender to touch and worse with movement as well. States improved with rest. She denies any vomiting or diarrhea. Denies any fevers. Associated symptoms: Deny chest pain, fever(s), nausea, rash or vomiting Review of Systems Const: Denies: fever(s), chills, body aches or change in appetite Eyes: Denies: blurry vision or eye discomfort ENMT: Denies: throat pain or dental pain Card: Denies: chest pain Resp: Denies: dyspnea GI: Denies: abdominal pain, nausea, vomiting or diarrhea : Denies: dysuria Musc: Denies: neck pain or back pain Skin/Breast: Denies: rash Neuro: Reports: headache(s) Psych: Denies: depression Claude/Lymph: Denies: easy bruising All/Imm: Denies: urticaria PFSH ED PFSH: Medical History (Updated 10/10/20 @ 22:47 by Adriana Antoine MD) ADHD Substance abuse Social History Smoking and tobacco status: current every day smoker Female Reproductive History: Date of last menstrual period: 08/31/19 Physical Exam Const: COMMON NORMALS: no acute distress, patient oriented x3 and healthy appearing HENMT: COMMON NORMALS: normocephalic and atraumatic HEAD & SCALP: normocephalic and atraumatic OTHER: Tenderness along trapezius muscle along with tenderness at the base of her skull over trapezius inserts Eye: COMMON NORMALS: Equal, round and reactive pupils present and EOMs intact bilaterally PUPIL: Yes Equal, round and reactive pupils present Neck/C-Spine: COMMON NORMALS: full ROM and supple Chest: COMMONS NORMALS: normal inspection of the chest and normal palpation of entire chest wall Resp: COMMON NORMALS: normal respiratory effort, No retractions, No use of accessory muscles and clear to auscultation bilaterally AUSCULTATION: clear to auscultation bilaterally Cardio: COMMON NORMALS: regular rate, regular rhythm and No murmurs present (Cardio) RATE: regular rate RHYTHM: regular rhythm GI: COMMON NORMALS: Normal to inspection, nondistended, normoactive bowel sounds present, Soft to palpation, non-tender and no masses PALPATION: Yes Soft to palpation Extremity: COMMON NORMALS: normal to inspection and full ROM Neuro: COMMON NORMALS: patient oriented x3, moves all extremities and no focal motor deficits Psych: COMMON NORMALS: mental status grossly normal, Normal thought process present and cooperative THOUGHT PROCESS: Normal thought process present Skin: COMMON NORMALS: no rashes or lesions noted and no wounds GENERAL SKIN EXAM: no rashes or lesions noted Course Vital Signs: Vital signs: Vital Signs Temperature 97.8 F 10/10/20 21:15 Pulse Rate 89 10/10/20 22:35 Respiratory Rate 16 10/10/20 22:35 Blood Pressure 161/114 10/10/20 22:35 Pulse Oximetry 100 10/10/20 22:35 MDM - Headache MDM Narrative: Medical decision making narrative: Rowan presents with a migraine headache with a likely muscle strain as well to her neck. Patient is well-appearing here has no signs of meningitis or subarachnoid hemorrhage. Her headache is much improved here after IV meds. She is stable for discharge is to follow-up with her PCP and return if worsening. Discharge Plan Discharge Patient Disposition: Home Clinical Impression: Headache Qualifiers: Headache type: unspecified Headache chronicity pattern: acute headache Intractability: not intractable Qualified Code(s): R51.9 - Headache, unspecified Condition: Stable Prescriptions: New methocarbamol [Robaxin-750] 750 mg tablet 750 mg PO Q6H Qty: 30 RF: 0 naproxen [Naprosyn] 500 mg tablet 500 mg PO BID PRN (Reason: pain) Qty: 20 RF: 0 No Action dicyclomine 20 mg tablet 20 mg PO QID Qty: 30 RF: 0 ondansetron HCl [Zofran] 4 mg tablet 4 mg PO Q8H PRN (Reason: nausea and vomiting) Qty: 30 RF: 0 pantoprazole 40 mg tablet,delayed release (DR/EC) 40 mg PO DAILY Qty: 30 RF: 0 Prozac 20 mg capsule 20 mg PO DAILY Qty: 60 RF: 0 Vistaril 50 mg capsule 50 mg PO ONCE PRN (Reason: insomnia) Qty: 60 RF: 0 Discharge Orders: Discharge ED (Routine); Ordered 10/10/20 Ordered By: Adriana Antoine Discharge Diet: Advance as tolerated Discharge Activity: Resume usual activity Patient Instructions: Opioid Safety Coding Level of Care Code ED Process Description Writer for Adrianna Fwd Exam Comprehensive
[2020-10-10] MEDS: metoclopramide 5 mg/mL SDV 2 mL 10 MG IVP (22:32)
[2020-10-10] MEDS: ketorolac 30 mg/mL INJ IVP (22:32)
[2020-10-10] MEDS: diphenhydrAMINE 50 mg/mL SDV 1mL IVP (22:32)
[2020-10-10 22:35] VITALS: BP 161/114; PULSE 89; RESP 16; O2SAT 100
[2020-10-10 23:04] VITALS: BP 118/75; PULSE 92; RESP 18; O2SAT 99
== END 2020-10-10 23:07 | disposition home or self-care (01) ==
PROVIDERS: Emergency Provider Emergency Medicine
DX: R51.9 Headache, unspecified (principal); F17.210 Nicotine dependence, cigarettes, uncomplicated
CPT/HCPCS: 96374; 96375; 99283; J1200; J1885; J2765

== ENCOUNTER 2020-12-20 12:59 | Emergency (ER) | payer SELFPAY ==
[2020-12-20 13:18] VITALS: BP 133/73; PULSE 94; RESP 14; TEMP 36.6; O2SAT 98; BMI 32.1
--- NOTE | 2020-12-20 13:37 | ED_ITS ---
HPI - Dental/Oral General: Chief complaint: Dental/Oral Stated complaint: DENTAL/ORAL PAIN Time Seen by Provider: 12/20/20 13:14 History of Present Illness: HPI Narrative: Patient is a 30-year-old female comes to the ED with dental pain. Patient says yesterday she started feeling dental pain around teeth #32 and 31. Today she woke up with significant swelling in right lower jaw. She rates her pain an 8 out of 10. Denies any trouble breathing, fever, nausea/vomiting. Associated symptoms: Denies fever(s) or odynophagia Review of Systems Const: Denies: fever(s), chills or fatigue Eyes: Denies: change in vision or eye discomfort ENMT: Reports: dental pain and other (Right lower jaw swelling); Denies: throat pain, odynophagia, nasal discharge or nasal congestion Card: Denies: chest pain, palpitations, edema, swelling of feet/ankles, dyspnea on exertion or orthopnea Resp: Denies: dyspnea, productive cough or non-productive cough GI: Denies: abdominal pain, nausea, vomiting, diarrhea, constipation or hematochezia : Denies: flank pain, dysuria or hematuria Musc: Denies: neck pain, back pain or extremity swelling Skin/Breast: Denies: rash or new lesions Neuro: Denies: headache(s), numbness in extremities or weakness in extremities PFSH ED PFSH: Medical History ADHD Substance abuse Social History Smoking and tobacco status: current every day smoker Female Reproductive History: Date of last menstrual period: 12/03/20 Physical Exam Const: COMMON NORMALS: no acute distress, patient oriented x3 and alert GENERAL APPEARANCE: cooperative and comfortable HENMT: COMMON NORMALS: normocephalic HEAD & SCALP: normocephalic FACE & SINUS: edema on the right mandible MOUTH: Normal oral and palatal mucosa present TEETH & GINGIVA: Yes abnormal tooth and associated gingiva lower right second molar tender, with associated gingival edema and other (Applying pressure on gum area caused pus to drain out from tooth #31) and Yes caries (Extensive dental decay on tooth #32 and 31. ) THROAT: posterior oropharynx normal and uvula midline Neck/C-Spine: COMMON NORMALS: supple GENERAL: Yes normal visual inspection Resp: COMMON NORMALS: normal respiratory effort, No retractions, No use of accessory muscles and clear to auscultation bilaterally AUSCULTATION: clear to auscultation bilaterally Cardio: COMMON NORMALS: regular rate, regular rhythm, S1 normal heart sound present, S2 normal heart sound present, No gallops present (Cardio), No clicks present (Cardio), No murmurs present (Cardio) and Peripheral pulses 2+ throughout RATE: regular rate RHYTHM: regular rhythm HEART SOUNDS: S1 normal heart sound present and S2 normal heart sound present PERIPHERAL PULSES: Peripheral pulses 2+ throughout GI: COMMON NORMALS: Normal to inspection, nondistended, normoactive bowel sounds present, Soft to palpation, non-tender and no masses PALPATION: Yes Soft to palpation : COMMON NORMALS: Yes no CVA tenderness BLADDER/KIDNEY EXAM: Yes no CVA tenderness Back/Pelvis: COMMON NORMALS: no CVA tenderness Extremity: COMMON NORMALS: normal to inspection Neuro: COMMON NORMALS: patient oriented x3 SENSORIUM/ORIENTATION: Yes alert Skin: GENERAL SKIN EXAM: dry skin Course Vital Signs: Vital signs: Vital Signs Temperature 97.9 F 12/20/20 13:18 Pulse Rate 94 12/20/20 13:18 Respiratory Rate 14 12/20/20 13:18 Blood Pressure 133/73 12/20/20 13:18 Pulse Oximetry 98 12/20/20 13:18 MDM - Dental/Oral MDM Narrative: Medical decision making narrative: Patient is a 30-year-old female comes to the ED with dental pain. Patient has extensive dental decay on tooth #31 and 32 with associated gingival edema and tenderness. Patient has some right lower mandible facial swelling. Denies any trouble breathing. Patient was diagnosed with dental pain due to dental caries. She was discharged home with a prescription for clindamycin and told to follow-up with as possible. Return to ED precautions given. Patient understood and agree with plan. Discharge Plan Discharge Patient Disposition: Home Clinical Impression: Pain due to dental caries Condition: Stable Prescriptions: New clindamycin HCl 150 mg capsule 300 mg PO QID 7 Days Qty: 56 RF: 0 ibuprofen 800 mg tablet 800 mg PO Q8H PRN (Reason: pain) Qty: 15 RF: 0 No Action dicyclomine 20 mg tablet 20 mg PO QID Qty: 30 RF: 0 ondansetron HCl [Zofran] 4 mg tablet 4 mg PO Q8H PRN (Reason: nausea and vomiting) Qty: 30 RF: 0 pantoprazole 40 mg tablet,delayed release (DR/EC) 40 mg PO DAILY Qty: 30 RF: 0 Prozac 20 mg capsule 20 mg PO DAILY Qty: 60 RF: 0 Vistaril 50 mg capsule 50 mg PO ONCE PRN (Reason: insomnia) Qty: 60 RF: 0 Robaxin-750 750 mg tablet 750 mg PO Q6H Qty: 30 RF: 0 Naprosyn 500 mg tablet 500 mg PO BID PRN (Reason: pain) Qty: 20 RF: 0 Discharge Orders: Discharge ED (Routine); Ordered 12/20/20 Ordered By: Deejay Melendez Discharge Diet: Regular Discharge Activity: Resume usual activity Patient Instructions: Dental Caries (ED) Activity Restrictions/Additional Instructions: Contact dentist to get set up with an appointment for further evaluation of dental pain. Take medications as prescribed. Take [id number] Tylenol or ibuprofen for pain. Return to the ER or your medical provider if condition worsens. Please read and understand discharge instructions. Thank you for choosing [facility] for your healthcare needs today. Please realize this is an emergency room and that we are providing you with a medical screening exam and this may not be complete and all inclusive of all the testing and or work up that you may need to determine your ailment or severity of your illness. It is very important that you follow up as instructed or that you return to the Emergency Department should you have concerns or if your condition changes or worsens in any way. Coding Level of Care Code ED Salmon [employer] Vessel Operator for Adrianna Grier
[2020-12-20] MEDS: HYDROcodone-acetaminophen 7.5-325 mg Tablet 1 TAB PO (13:43)
== END 2020-12-20 13:51 | disposition home or self-care (01) ==
PROVIDERS: Emergency Provider Physician Assistant
DX: K02.9 Dental caries, unspecified (principal); F17.210 Nicotine dependence, cigarettes, uncomplicated
CPT/HCPCS: 99283

== ENCOUNTER 2021-05-17 06:14 | Emergency (ER) | payer BC, MEDICAID, SELFPAY ==
[2021-05-17 06:18] VITALS: BP 182/111; PULSE 99; RESP 18; TEMP 36.1; O2SAT 99; BMI 30.4
--- NOTE | 2021-05-17 06:24 | W.ED.HA ---
HPI - Headache General: Chief Complaint: Headache Stated Complaint: ANDREWS Time Seen by Provider: 05/17/21 06:18 History of Present Illness: HPI Narrative: 31-year-old female with history of migraines presents due to same. States this started 2 days ago. States it is worsening. Reports it feels similar to previous migraines. Reports pain wrapping around her head and neck. Denies radiation down the neck. Denies rash or fever. States that previous migraines and felt similarly. Denies any vision or hearing change or vertigo or focal weakness numbness or tingling. Denies any blood thinners or head trauma. Review of Systems Narrative: - CONSTITUTIONAL: Denies weight loss, fever and chills. - HEENT: Denies changes in vision and hearing. - RESPIRATORY: Denies SOB and cough. - CV: Denies palpitations and CP. - GI: Denies abdominal pain, nausea, vomiting and diarrhea. - : Denies dysuria and urinary frequency. - MSK: Denies myalgia and joint pain. - SKIN: Denies rash and pruritus. - NEUROLOGICAL: As above - PSYCHIATRIC: Denies suicidal ideation PFS ED PFSH: Medical History (Updated 05/17/21 @ 06:44 by Brian Barr MD) ADHD Substance abuse Social History Smoking and tobacco status: current every day smoker Female Reproductive History: Date of last menstrual period: 02/18/21 Physical Exam Narrative: EXAM NARRATIVE: - GENERAL: Alert and oriented x 3. No acute distress. Well-nourished. - EYES: EOMI. Anicteric. - HENT: Atraumatic, no C-spine tenderness. Moist mucous membranes. No scleral icterus. No cervical lymphadenopathy. - LUNGS: Clear to auscultation bilaterally. No accessory muscle use. Equal lung sounds bilaterally. No respiratory distress. - CARDIOVASCULAR: Regular rate and rhythm. No murmur. No JVD. - ABDOMEN: Soft, non-tender and non-distended. Negative CVA tenderness bilaterally, no rebound or guarding, negative [place] sign. No palpable masses. - EXTREMITIES: No edema. Non-tender. - SKIN: No rashes or lesions. Warm. - NEUROLOGIC: GCS 15, no meningismus or focal neurological deficits. CN II-XII grossly intact. - PSYCHIATRIC: Cooperative. Appropriate mood and affect. Course Vital Signs: Vital signs: Vital Signs Temperature 97.0 F L 05/17/21 06:18 Pulse Rate 99 05/17/21 06:18 Respiratory Rate 18 05/17/21 06:18 Blood Pressure 182/111 05/17/21 06:18 Pulse Oximetry 99 05/17/21 06:18 MDM - Headache MDM Narrative: Medical decision making narrative: 31-year-old female presents with a headache. States she has history of migraines and this feels the same. No focal neurologic deficit. Is no meningismus or signs of focal infection. There is no rash. She is hemodynamically stable afebrile nontoxic-appearing. At this time do not believe further lab work or imaging is required. Had near complete resolution of symptoms following migraine cocktail. Referral to case management to help establish primary care follow-up ordered. At this time I believe patient would be safe for discharge and outpatient follow-up. Return precautions provided. Plan was reviewed with the patient who expressed understanding. Questions answered. Patient will follow up with PCP. Patient discharged in stable condition. Discharge Plan Discharge Patient Disposition: Home Clinical Impression: Migraine, Headache Condition: Stable Prescriptions: No Action No Known Home Medications RF: 0 Discharge Orders: Discharge ED (Routine); Ordered 05/17/21 Ordered By: Brian Barr Referrals: your, PCP [Other] - 1-3 days Patient Instructions: Acute Headache (ED), Opioid Safety Coding Level of Care Code ED Supervisor [employer] for Adrianna Grier
[2021-05-17] MEDS: metoclopramide 5 mg/mL SDV 2 mL 10 MG IVP (06:36)
[2021-05-17] MEDS: ketorolac 30 mg/mL INJ IVP (06:36)
[2021-05-17] MEDS: diphenhydrAMINE 50 mg/mL SDV 1mL IVP (06:36)
--- NOTE | 2021-05-17 07:01 | PC.NURSE ---
Recieved report from RN, rounded on pt and introduced self, no needs stated. Pt waiting on ride
--- NOTE | 2021-05-18 12:03 | DCPLANNER ---
nursery manager had message to speak with patient about getting established with a primary care physician. nursery manager called phone number [phone], recording stated that this number has been changed or disconnected, no longer in service.
== END 2021-05-17 07:23 | disposition home or self-care (01) ==
PROVIDERS: Emergency Provider Emergency Medicine
DX: G43.909 Migraine, unspecified, not intractable, without status migrainosus (principal); F17.210 Nicotine dependence, cigarettes, uncomplicated
CPT/HCPCS: 96374; 96375; 99283; 99291; J1200; J1885; J2765

== ENCOUNTER 2021-07-20 13:06 | Emergency (ER) | payer BC, MEDICAID, SELFPAY ==
[2021-07-20 13:21] VITALS: BP 156/106; PULSE 101; RESP 18; TEMP 37; O2SAT 98
[2021-07-20 15:35] LABS: Adenovirus Not Detected (NOT DETECT); Chlamydia Pneumoniae Not Detected (NOT DETECT); Coronavirus 229E,HKU1,NL63,OC4 Not Detected (NOT DETECT); Human Metapneumovirus Not Detected (NOT DETECT); Human Rhinovirus/Enterovirus Not Detected (NOT DETECT); Influenza A Not Detected (NOT DETECT); Influenza A H1 Not Detected (NOT DETECT); Influenza A H1-2009 Not Detected (NOT DETECT); Influenza A H3 Not Detected (NOT DETECT); Influenza B Not Detected (NOT DETECT); Mycoplasma Pneumoniae Not Detected (NOT DETECT); Parainfluenza Virus Type 1 Not Detected (NOT DETECT); Parainfluenza Virus Type 2 Not Detected (NOT DETECT); Parainfluenza Virus Type 3 Not Detected (NOT DETECT); Parainfluenza Virus Type 4 Not Detected (NOT DETECT); Respiratory Syncytial Virus A Not Detected (NOT DETECT); Respiratory Syncytial Virus B Not Detected (NOT DETECT); SARS-COV-2 Detected (NOT DETECT)
--- NOTE | 2021-07-20 17:11 | PC.NURSE ---
Tried to notified pt but there is no answer and no voice mail
--- NOTE | 2021-07-21 16:16 | PC.NURSE ---
attempted to notify pt about postive covid, no answer or voicemail box
== END 2021-07-20 17:29 | disposition left against medical advice (07) ==
LOC: ER 13:09
PROVIDERS: Emergency Provider Family Medicine
DX: Z53.21 Procedure and treatment not carried out due to patient leaving prior to being seen by health care provider (principal)
CPT/HCPCS: 87635; 99281

== ENCOUNTER → 2021-10-16 13:31 | Outpatient (BNVA) | payer BC, MEDICAID, SELFPAY | PROVIDERS: Visit Provider Physician Assistant | DX: M51.36 Other intervertebral disc degeneration, lumbar region (principal) | CPT/HCPCS: 99203; 99999 ==

== ENCOUNTER 2021-10-23 10:07 | Emergency (ER) | payer BC, MEDICAID, SELFPAY ==
[2021-10-23 10:28] VITALS: BP 183/108; PULSE 97; RESP 20; TEMP 36.4; O2SAT 100
--- NOTE | 2021-10-23 10:51 | ED_ITS ---
HPI - Back Pain/Injury General: Chief Complaint: Back Pain/Injury Stated Complaint: Lower back severe pain Time Seen by Provider: 10/23/21 10:32 Source: patient Mode of arrival: wheelchair Limitations: no limitations History of Present Illness: Patient is a 31-year-old female who presents to ED today along with her grandmother for concerns of lower back pain. Patient states she has a longstanding history of chronic lower back pain. She was recently evaluated at the [facility] orthopedic spine clinic in regards to her lower back pain. Plan was for conservative treatment at this time and reassess in 4 t o 6 weeks. Patient states a few days ago her pain became intense/worse than baseline. She is having pain radiating down bilateral lower extremities above the knee. He does not complain of any fecal incontinence or urinary retention. MD elicited complaint: back pain Pertinent past history: prior back pain Onset (ago): day(s) Timing: constant Severity: severe Similar Symptoms Previously: Yes Location: lumbar spine Radiation: left upper leg and right upper leg Exacerbating factors: movement, walking, coughing/sneezing and lifting Relieving factors: none Associated symptoms: Reports difficulty walking (secondary to pain); Deny abdominal pain, chills, dysuria, fatigue, fever(s), hematuria, nausea or vomiting Treatments prior to arrival: cold therapy and heat therapy Work related injury: No Review of Systems Const: Denies: fever(s), chills, body aches, fatigue or malaise Card: Denies: chest pain Resp: Denies: dyspnea GI: Denies: abdominal pain, nausea, vomiting or diarrhea : Denies: flank pain, difficulty voiding, dysuria, urinary incontinence or hematuria Musc: Reports: back pain; Denies: neck pain, extremity swelling, joint pain, joint swelling or joint redness Skin/Breast: Denies: rash Neuro: Reports: difficulty walking (secondary to pain); Denies: headache(s), numbness in extremities, weakness in extremities, sensory changes or lack of coordination [facility] ED PFSH: Medical History ADHD Substance abuse Social History Smoking and tobacco status: current every day smoker Female Reproductive History: Date of last menstrual period: 02/18/21 Physical Exam Const: COMMON NORMALS: patient oriented x3, no limitations and alert GENERAL APPEARANCE: cooperative and in distress (patient crying secondary to discomfort) NUTRITIONAL APPEARANCE: overweight ORIENTATION/CONSCIOUSNESS: Yes awake, Yes oriented to person, Yes oriented to place and Yes oriented to time OTHER: hypertensive-did not take BP meds this AM Resp: COMMON NORMALS: normal respiratory effort and clear to auscultation bilaterally AUSCULTATION: clear to auscultation bilaterally Cardio: COMMON NORMALS: regular rate and regular rhythm RATE: regular rate RHYTHM: regular rhythm Back/Pelvis: THORACIC SPINE/UPPER BACK: Yes normal to inspection, No thoracic spinal tenderness and No paraspinal muscle tenderness LUMBAR SPINE/LOWER BACK: Yes lumbar spinal tenderness, Yes paraspinal muscle tenderness (across lower back), No paraspinal muscle spasm and Yes straight leg raise negative bilaterally PELVIS: Yes buttocks normal SACROILIAC JOINTS: Yes SI joint(s) abnormal SI joint details: tender to palpation Extremity: COMMON NORMALS: normal to inspection GENERAL: Yes normal exam except as noted Neuro: COMMON NORMALS: patient oriented x3, moves all extremities, no focal motor deficits and no sensory deficits noted SENSORIUM/ORIENTATION: Yes alert, Yes oriented to person, Yes oriented to place and Yes oriented to time MOTOR EXAM: 5/5 motor strength present throughout Skin: COMMON NORMALS: no rashes or lesions noted GENERAL SKIN EXAM: no rashes or lesions noted Course Vital Signs: Vital signs: Vital Signs Temperature 97.6 F 10/23/21 10:28 Pulse Rate 76 10/23/21 14:43 Respiratory Rate 16 10/23/21 14:43 Blood Pressure 139/96 10/23/21 14:43 Pulse Oximetry 98 10/23/21 14:43 MDM - Back Pain/Injury Medical Decision Making Patient feeling much better after IM medications given here and is moving around/walking without difficulty. CT scan showing osteophyte protrusion at L5- S1 impinging her right S1 nerve root as well as disc bulging of L4-L5 slight impingement of her left L5 nerve root. There is no acute compression. She has no acute neurologic deficits on today's exam. Recommend she continue to follow- up with PCP and orthopedic spine clinic for further evaluation/treatment. Return to ED precautions verbally given to patient and grandmother. Labs Radiology Impressions Lumbar Spine CT 10/23/21 11:02 IMPRESSION: 1. RIGHT pericentral disc osteophyte protrusion L5-S1 impinges the traversing RIGHT S1 nerve root. Recommend correlation for RIGHT S1 nerve root symptoms. Mild central canal stenosis at this level. 2. Mild annular bulging L4-L5 with slight narrowing of the LEFT greater than RIGHT subarticular recess and slight impingement traversing LEFT L5 nerve root. 3. Mild facet arthropathy L3-L5. 4. Evidence of chronic appearing sacroiliitis with periarticular sclerosis. Laboratory Results Urine Color Yellow (Yellow) 10/23/21 12:05 Urine Appearance Hazy (CLEAR) A 10/23/21 12:05 Urine pH 7 (5-7) 10/23/21 12:05 Ur Specific [place] 1.015 (1.005-1.030) 10/23/21 12:05 Urine Protein Neg (Negative) 10/23/21 12:05 Urine Glucose (UA) Trace (Normal) H 10/23/21 12:05 Urine Ketones Negative (Negative) 10/23/21 12:05 Urine Blood Neg (Negative) 10/23/21 12:05 Urine Nitrate Negative (Negative) 10/23/21 12:05 Urine Bilirubin Neg (Negative) 10/23/21 12:05 Urine Urobilinogen Neg mg/dL (Negative) 10/23/21 12:05 Ur Leukocyte Esterase Negative (Negative) 10/23/21 12:05 Urine HCG, Qual Negative (Negative) 10/23/21 12:05 Discharge Plan Discharge Patient Disposition: Home Clinical Impression: Lumbosacral radiculopathy at S1, L4-L5 disc bulge Condition: Stable Prescriptions: New cyclobenzaprine 10 mg tablet 10 mg PO TID Qty: 14 0RF prednisone 10 mg tablet 60 mg PO DAILY 5 Days Qty: 30 0RF ibuprofen 800 mg tablet 800 mg PO Q8H PRN (Reason: pain) Qty: 20 0RF No Action fluoxetine 20 mg capsule PO 0RF omeprazole 20 mg capsule,delayed release(DR/EC) 20 mg PO DAILY 0RF propranolol 20 mg tablet PO 0RF acyclovir 800 mg tablet 800 mg PO DAILY 0RF rizatriptan 10 mg tablet PO 0RF Discharge Orders: Discharge ED (Routine); Ordered 10/23/21 Ordered By: Sandrita Díaz Coding Level of Care Code ED Film Numberer for Chg Cherrie
--- NOTE | 2021-10-23 11:02 | CT_ITS ---
WS: [id number] CT LUMBAR SPINE TECHNIQUE: Noncontrast CT of the lumbar spine with coronal and sagittal reformatted images. CLINICAL INFORMATION: severe low back pain COMPARISON: None. DLP: 2620.[address] scans at [facility] use at least one of these dose optimization techniques: automated e xposure control; mA and/or kV adjustment per patient size (includes targeted exams where dose is matc hed to clinical indication); or iterative reconstruction. FINDINGS: Mild lumbar curve. No acute compression. Disc bulging L4-L5 and L5-S1. Vacuum disc phenomenon L5-S1. No acute fractures. Sclerosis about the SI joints can be seen with chronic sacroiliitis. No significa nt erosive changes. Adrenal glands are normal. L1-L2: Normal. L2-L3: Normal. L3-L4: Minimal annular bulging. Spinal canal and foramen are patent. Mild facet arthropathy. L4-L5: Mild disc bulging with slight narrowing of the LEFT greater than RIGHT subarticular recess. Fo ramen are patent. Mild facet arthropathy. L5-S1: RIGHT pericentral disc osteophyte protrusion impinges the RIGHT S1 nerve root in the subarticu lar recess. Correlation for RIGHT S1 nerve root symptoms. Mild facet arthropathy. Mild central canal stenosis. Visualized pelvic bony structures: Normal. Paravertebral soft tissues: Normal. CT/CT lumbar spine wo con* [id number] IMPRESSION: 1. RIGHT pericentral disc osteophyte protrusion L5-S1 impinges the traversing RIGHT S1 nerve root. Recommend correlation for RIGHT S1 nerve root symptoms. Mi ld central canal stenosis at this level. 2. Mild annular bulging L4-L5 with slight narrowing of the LEFT greater than R IGHT subarticular recess and slight impingement traversing LEFT L5 nerve root. 3. Mild facet arthropathy L3-L5. 4. Evidence of chronic appearing sacroiliitis with periarticular sclerosis.
[2021-10-23 11:20] VITALS: BP 163/83; PULSE 84; RESP 17; O2SAT 98
[2021-10-23] MEDS: dexamethasone 10 mg/mL INJ IM (11:24)
[2021-10-23] MEDS: ketorolac 60 mg/2 mL INJ IM (11:24)
[2021-10-23] MEDS: orphenadrine 30 mg/mL Inj 2 mL 60 MG IM (11:24)
[2021-10-23] MEDS: propranolol 20 mg Tablet PO (11:25)
[2021-10-23 12:24] LABS: Add Urine Microscopic? NO; Charge for UA Resulting for Rev
[2021-10-23 12:38] LABS: Specific Gravity, Urine 1.015 (1.005-1.030); Urine Appearance Hazy (CLEAR); Urine Color Yellow (Yellow); pH Urine 7 (5-7)
[2021-10-23 12:39] LABS: Bilirubin Urine Neg (Negative); Blood Urine Neg (Negative); Glucose Urine UA Trace (Normal); Ketones Urine Negative (Negative); Leukocyte Esterase Urine Negative (Negative); Nitrate Urine Negative (Negative); Protein Urine Neg (Negative); Urobilinogen Urine Neg (Negative)
[2021-10-23 13:33] VITALS: BP 160/86; PULSE 74; RESP 14; O2SAT 98
[2021-10-23 14:43] VITALS: BP 139/96; PULSE 76; RESP 16; O2SAT 98
== END 2021-10-23 14:44 | disposition home or self-care (01) ==
PROVIDERS: Emergency Provider Physician Assistant
DX: M54.16 Radiculopathy, lumbar region (principal); M51.26 Other intervertebral disc displacement, lumbar region; F17.200 Nicotine dependence, unspecified, uncomplicated
CPT/HCPCS: 72131; 81003; 81025; 96372; 99283; J1100; J1885; J2360

== ENCOUNTER 2021-11-25 16:51 | Emergency (ER) | payer BC, MEDICAID, SELFPAY ==
[2021-11-25 17:06] VITALS: BP 178/98; PULSE 103; RESP 16; TEMP 37.1; O2SAT 97; BMI 31.1
--- NOTE | 2021-11-25 17:39 | W.ED.BACK ---
HPI - Back Pain/Injury General: Chief Complaint: Back Pain/Injury Stated Complaint: Lower back pain Time Seen by Provider: 11/25/21 17:28 History of Present Illness: Patient is a 31-year-old female comes to the ED with back pain. She has history of chronic back issues and has been diagnosed with degenerative disc disease. Pain started this morning when she woke. She denies any injury or trauma to cause acute back pain. Says the pain starts in her lower back and then shoots down into both right and left legs. She rates her pain currently an 8 out of 10. She took Tylenol couple hours prior to arrival and it did not help. Denies any chance of being . Associated symptoms: Deny abdominal pain, chills, dysuria, fatigue, fever(s), hematuria, nausea or vomiting Review of Systems Const: Denies: fever(s), chills or fatigue Eyes: Denies: change in vision or eye discomfort ENMT: Denies: throat pain, odynophagia, nasal discharge or nasal congestion Card: Denies: chest pain, palpitations, edema, swelling of feet/ankles, dyspnea on exertion or orthopnea Resp: Denies: dyspnea, productive cough or non-productive cough GI: Denies: abdominal pain, nausea, vomiting, diarrhea, constipation or hematochezia : Denies: flank pain, dysuria or hematuria Musc: Reports: back pain; Denies: neck pain or extremity swelling Skin/Breast: Denies: rash or new lesions Neuro: Denies: headache(s), numbness in extremities or weakness in extremities [facility] ED PFSH: Medical History (Updated 11/25/21 @ 22:50 by CELESTE Baldwin) ADHD DDD (degenerative disc disease), lumbar No pertinent family history Substance abuse Social History Smoking and tobacco status: current every day smoker Female Reproductive History: Date of last menstrual period: 02/18/21 Physical Exam Const: COMMON NORMALS: patient oriented x3 and alert GENERAL APPEARANCE: cooperative HENMT: COMMON NORMALS: normocephalic HEAD & SCALP: normocephalic MOUTH: Normal oral and palatal mucosa present THROAT: posterior oropharynx normal and uvula midline Neck/C-Spine: COMMON NORMALS: supple GENERAL: Yes normal visual inspection Resp: COMMON NORMALS: normal respiratory effort, No retractions, No use of accessory muscles and clear to auscultation bilaterally AUSCULTATION: clear to auscultation bilaterally Cardio: COMMON NORMALS: regular rate, regular rhythm, S1 normal heart sound present, S2 normal heart sound present, No gallops present (Cardio), No clicks present (Cardio), No murmurs present (Cardio) and Peripheral pulses 2+ throughout RATE: regular rate RHYTHM: regular rhythm HEART SOUNDS: S1 normal heart sound present and S2 normal heart sound present PERIPHERAL PULSES: Peripheral pulses 2+ throughout GI: COMMON NORMALS: Normal to inspection, nondistended, normoactive bowel sounds present, Soft to palpation, non-tender and no masses PALPATION: Yes Soft to palpation : COMMON NORMALS: Yes no CVA tenderness BLADDER/KIDNEY EXAM: Yes no CVA tenderness Back/Pelvis: COMMON NORMALS: no CVA tenderness LUMBAR SPINE/LOWER BACK: Yes paraspinal muscle tenderness Lumbar paraspinal muscle tenderness: bilateral Bilateral lumbar paraspinal muscle tenderness: L3, L4 and L5 Extremity: COMMON NORMALS: normal to inspection Neuro: COMMON NORMALS: patient oriented x3 and moves all extremities SENSORIUM/ORIENTATION: Yes alert Skin: GENERAL SKIN EXAM: dry skin Course Vital Signs: Vital signs: Vital Signs Temperature 98.8 F 11/25/21 17:06 Pulse Rate 103 H 11/25/21 17:06 Respiratory Rate 16 11/25/21 17:06 Blood Pressure 178/98 11/25/21 17:06 Pulse Oximetry 97 11/25/21 17:06 MDM - Back Pain/Injury Medical Decision Making Patient is a 31-year-old female comes to the ED with lower back pain. Patient has chronic back pain with degenerative disc disease and is currently scheduled to see Dr. Montejo at his office this coming week. Denies any cauda equina symptoms but does endorse some pain radiating down into both right and left legs. Patient denies any injury or trauma to cause acute back pain. Vitals are stable. Patient appears nontoxic in no acute distress. She does have some lumbar paraspinal muscle tenderness that is bilateral and the rest of exam is benign. Patient was given a dose of Toradol, Norflex and steroid here in the ED. She was stable for discharge home and diagnosed with low back pain radiating to both legs. She is told to follow-up with Dr. Montejo at her scheduled appointment this coming week. She was discharged home with a prescription for Celebrex for pain. She already currently takes a muscle relaxer and has some at home. Return to ED precautions given. Patient understood and agreed with plan. Discharge Plan Discharge Patient Disposition: Home Clinical Impression: Low back pain radiating to both legs Condition: Stable Prescriptions: New Celebrex 100 mg capsule 100 mg PO BID PRN (Reason: pain) Qty: 20 0RF No Action fluoxetine 20 mg capsule PO 0RF omeprazole 20 mg capsule,delayed release(DR/EC) 20 mg PO DAILY 0RF propranolol 20 mg tablet PO 0RF acyclovir 800 mg tablet 800 mg PO DAILY 0RF rizatriptan 10 mg tablet PO 0RF cyclobenzaprine 10 mg tablet 10 mg PO TID Qty: 14 0RF ibuprofen 800 mg tablet 800 mg PO Q8H PRN (Reason: pain) Qty: 20 0RF Discharge Orders: Discharge ED (Routine); Ordered 11/25/21 Ordered By: Deejay Melendez Referrals: Betina Lemon PA [Primary Care Provider] - Discharge Diet: Regular Discharge Activity: Increase activity as tolerated Activity Restrictions/Additional Instructions: Follow-up with Dr. Montejo at your scheduled appointment this Friday. Take medications as prescribed. Apply cold pack on lower back and massage lower back muscles daily as well to help with symptoms. Return to the ER or your medical provider if condition worsens. Please read and understand discharge instructions. Thank you for choosing [facility] for your healthcare needs today. Please realize this is an emergency room and that we are providing you with a medical screening exam and this may not be complete and all inclusive of all the testing and or work up that you may need to determine your ailment or severity of your illness. It is very important that you follow up as instructed or that you return to the Emergency Department should you have concerns or if your condition changes or worsens in any way. Coding Level of Care Code ED Development Disability Specialist for Adrianna Grier Exam Comprehensive
[2021-11-25] MEDS: ketorolac 60 mg/2 mL INJ IM (18:17)
[2021-11-25] MEDS: orphenadrine 30 mg/mL Inj 2 mL 60 MG IM (18:17)
== END 2021-11-25 18:25 | disposition home or self-care (01) ==
PROVIDERS: Emergency Provider Physician Assistant; PCP Physician Assistant
DX: M51.36 Other intervertebral disc degeneration, lumbar region (principal); G89.29 Other chronic pain
CPT/HCPCS: 96372; 99284; J1885; J2360; J2930

== ENCOUNTER 2021-11-28 08:07 | Emergency (ER) | payer BC, MEDICAID, SELFPAY ==
[2021-11-28 08:14] VITALS: BP 136/105; PULSE 87; RESP 18; TEMP 36.8; O2SAT 99; BMI 30.4
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
[2021-11-28] MEDS: lidocaine 5% Patch 1 PATCH TOPICAL (08:37)
[2021-11-28] MEDS: ketorolac 60 mg/2 mL INJ IM (08:38)
[2021-11-28] MEDS: orphenadrine 30 mg/mL Inj 2 mL 60 MG IM (08:39)
== END 2021-11-28 09:50 | disposition home or self-care (01) ==
PROVIDERS: Emergency Provider Physician Assistant; PCP Physician Assistant
DX: M54.50 Low back pain, unspecified (principal)
CPT/HCPCS: 96372; 99283; J1885; J2360

== ENCOUNTER → 2021-12-04 13:42 | Outpatient (BNVA) | payer BC, MEDICAID, SELFPAY | PROVIDERS: PCP Physician Assistant; Visit Provider Orthopaedic Surgery | DX: M51.26 Other intervertebral disc displacement, lumbar region (principal) | CPT/HCPCS: 99213; 99214 ==

== ENCOUNTER 2022-02-01 15:53 | Outpatient (CLI) | payer BC, MEDICAID, SELFPAY ==
--- NOTE | 2022-02-01 16:00 | MR_ITS ---
WS: [id number] MRI LUMBAR SPINE NONCONTRAST TECHNIQUE: Sagittal T1, T2 and STIR imaging. Axial T1 and T2 imaging. CLINICAL INFORMATION: Back Pain COMPARISON: None. FINDINGS: Mild lumbar curve. No acute compression. No high-grade central canal stenosis. Disc desiccation with degenerative endplate-type changes L5-S1. Mild disc bulging L5-S1. L1-L2: Normal. L2-L3: Normal. L3-L4: No significant disc bulging. Spinal canal and foramen are patent. L4-L5: Mild annular bulging. Slight effacement of ventral thecal sac. Mild RIGHT and no significant L EFT foraminal narrowing. Narrowing of the subarticular recess bilaterally. Mild facet arthropathy. L5-S1: RIGHT pericentral disc protrusion. Impingement on the traversing RIGHT S1 nerve root in the goldman barticular recess. Eccentric osteophytic ridging. Foramen are patent. Mild facet arthropathy. Visualized pelvic bony structures: Normal. Paravertebral soft tissues: Normal. MR/MR lumbar spine wo con* [id number] IMPRESSION: 1. Mild lumbar curve. No acute compression. No high-grade central canal stenos is. 2. RIGHT pericentral disc protrusion L5-S1 impinges the traversing RIGHT S1 ne rve root in the subarticular recess. Recommend correlation for RIGHT S1 nerve r oot symptoms. 3. Mild annular bulging L4-L5 with slight narrowing of the subarticular recess bilaterally. Mild RIGHT L4-L5 foraminal narrowing. 4. Mild facet arthropathy L4-L5 and L5-S1. 5. Disc desiccation with degenerative endplate-type edema L5-S1.
== END 2022-02-01 15:54 | disposition home or self-care (01) ==
PROVIDERS: PCP Physician Assistant; Visit Provider Orthopaedic Surgery
DX: M51.27 Other intervertebral disc displacement, lumbosacral region (principal); M51.36 Other intervertebral disc degeneration, lumbar region; M47.816 Spondylosis without myelopathy or radiculopathy, lumbar region; M47.817 Spondylosis without myelopathy or radiculopathy, lumbosacral region
CPT/HCPCS: 72148

== ENCOUNTER → 2022-02-28 15:08 | Outpatient (BNVA) | payer BC, MEDICAID, SELFPAY | PROVIDERS: PCP Physician Assistant; Visit Provider Physician Assistant | DX: M51.27 Other intervertebral disc displacement, lumbosacral region (principal); M51.36 Other intervertebral disc degeneration, lumbar region | CPT/HCPCS: 99213 ==

== ENCOUNTER 2022-05-28 18:49 | Emergency (ER) | payer BC, MEDICAID, SELFPAY ==
--- NOTE | 2022-05-28 18:52 | XRR_ITS ---
PROCEDURE INFORMATION: Exam: XR Chest Exam date and time: 05/28/2022 7:33 PM Age: 32 years old Clinical indication: Cough TECHNIQUE: Imaging protocol: Radiologic exam of the chest. Views: 1 view. COMPARISON: CR XR chest 1V portable [id number] 05/08/2020 12:11 PM FINDINGS: Lungs: Bibasilar atelectasis versus minimal infiltrate. Pleural spaces: Unremarkable. No pleural effusion. No pneumothorax. Heart/Mediastinum: Cardiomegaly. Bones/joints: Unremarkable. XR/XR chest 1V portable [id number] IMPRESSION: 1. Cardiomegaly. 2. Bibasilar atelectasis versus minimal infiltrate.
[2022-05-28 18:54] VITALS: PULSE 114; RESP 28; TEMP 37.7; O2SAT 96
== END 2022-05-28 20:18 | disposition left against medical advice (07) ==
PROVIDERS: Emergency Provider Family Medicine; PCP Physician Assistant
DX: Z53.21 Procedure and treatment not carried out due to patient leaving prior to being seen by health care provider (principal)
CPT/HCPCS: 71045

== ENCOUNTER 2022-12-07 09:52 | Emergency (ER) | payer BC, MEDICAID, SELFPAY ==
[2022-12-07 09:59] VITALS: BP 133/93; PULSE 106; RESP 16; TEMP 36.9; O2SAT 97
[2022-12-07 10:01] VITALS: BP 133/93; PULSE 106; RESP 16; TEMP 36.8; O2SAT 99; BMI 30.4
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
[2022-12-07] MEDS: ketorolac 60 mg/2 mL INJ IM (10:47)
[2022-12-07] MEDS: orphenadrine 30 mg/mL Inj 2 mL 60 MG IM (10:47)
== END 2022-12-07 10:57 | disposition home or self-care (01) ==
PROVIDERS: Emergency Provider Physician Assistant; PCP Physician Assistant
DX: M54.50 Low back pain, unspecified (principal); M79.604 Pain in right leg; M79.605 Pain in left leg; F17.210 Nicotine dependence, cigarettes, uncomplicated
CPT/HCPCS: 96372; 99284; J1885; J2360

== ENCOUNTER 2023-03-11 09:40 | Emergency (ER) | payer BC, MEDICAID, SELFPAY ==
[2023-03-11 09:40] VITALS: BP 167/90; PULSE 91; RESP 20; TEMP 36.8; O2SAT 100; BMI 29.6
--- NOTE | 2023-03-11 09:51 | W.ED.LOWEXIN ---
HPI - Extremity Injury (Lower) General: Chief Complaint: Extremity Injury, Lower Stated Complaint: Twisted Ankle Time Seen by Provider: 03/11/23 09:48 Source: patient Mode of arrival: wheelchair Limitations: no limitations History of Present Illness: Patient is a 32-year-old female presents to ED today for evaluation of a left foot and ankle injury that she sustained just prior to arrival. Patient states she was walking when she accidentally rolled her ankle. She states she has not been able to place weight on the extremity since the injury. Has no other injuries or complaints at this time. complaint: ankle injury and foot injury Onset (ago): hour(s) Injury: Left: ankle and foot Place: street/outdoors Severity: severe Relieving factors: nothing Exacerbating factors: weight bearing, movement and palpation Context: walking Associated symptoms: Reports inability to bear weight Other symptoms: none Review of Systems Musc: Reports: extremity pain (L foot), extremity swelling (L foot) and joint pain (L ankle); Denies: neck pain, back pain, joint swelling, joint redness or joint warmth Neuro: Denies: numbness in extremities or sensory changes PFSH ED PFSH: Medical History ADHD DDD (degenerative disc disease), lumbar No pertinent family history Substance abuse Social History Smoking and tobacco status: current every day smoker Physical Exam Const: COMMON NORMALS: average body habitus, no limitations, alert and well nourished GENERAL APPEARANCE: cooperative, in distress (crying secondary to pain) and anxious Extremity: COMMON NORMALS: capillary refill normal, no joint enlargement, no clubbing, cyanosis or edema, no calf tenderness and no pedal edema GENERAL: Yes normal exam except as noted LEFT LOWER EXTREMITY: Yes ankle joint (TTP anterior/lateral ankle without swelling or deformity) Left ankle: Yes neurovascular exam (normal) and Yes foot & digits (TTP throughout dorsal mid foot; mild swelling) Left foot and digits: Yes neurovascular exam (normal) Neuro: COMMON NORMALS: moves all extremities, no focal motor deficits and no sensory deficits noted SENSORIUM/ORIENTATION: Yes alert Skin: TRAUMA: no lacerations or abrasions Course Vital Signs: Vital signs: Vital Signs Temperature 98.2 F 03/11/23 09:40 Pulse Rate 91 03/11/23 09:40 Respiratory Rate 20 H 03/11/23 09:40 Blood Pressure 167/90 03/11/23 09:40 Pulse Oximetry 100 03/11/23 09:40 Oxygen Delivery Me thod Room Air 03/11/23 09:40 MDM - Extremity Injury (Lower) Medical Decision Making XR ankle/foot negative. Will MICHAEL wrap/crutches/instructions for weightbearing as tolerated/RICE therapy. Can follow up with PCP in 1-2 weeks if symptoms do not seem to be improving. Discharge Plan Discharge Patient Disposition: Home Clinical Impression: Sprain of left foot Qualifiers: Encounter type: initial encounter Qualified Code(s): S93.602A - Unspecified sprain of left foot, initial encounter Condition: Stable Prescriptions: No Action fluoxetine 20 mg capsule PO omeprazole 20 mg capsule,delayed release(DR/EC) 20 mg PO DAILY propranolol 20 mg tablet PO acyclovir 800 mg tablet 800 mg PO DAILY Celebrex 100 mg capsule 100 mg PO BID PRN (Reason: pain) Qty: 20 0RF methocarbamol 750 mg tablet 1,500 mg PO Q8H Qty: 30 0RF cyclobenzaprine 10 mg tablet 10 mg PO BID PRN (Reason: muscle spasm) Qty: 20 0RF ibuprofen 800 mg tablet 800 mg PO Q8H PRN (Reason: pain) Qty: 20 0RF Discharge Orders: Discharge ED (Routine); Ordered 03/11/23 Ordered By: Sandrita Díaz Referrals: Betina Lemon PA [Primary Care Provider] - Patient Instructions: Foot Sprain (ED), RICE Therapy Coding Level of Care Code ED [employer]r for Adrianna Grier
--- NOTE | 2023-03-11 09:51 | XRR_ITS ---
PROCEDURE INFORMATION: Exam: XR Left Ankle Exam date and time: 03/11/2023 10:10 AM Age: 32 years old Clinical indication: Pain and injury or trauma; Other: Rolled ankle while walking; Sprain or strain; Left; Additional info: Injury/pain TECHNIQUE: Imaging protocol: Radiologic exam of the left ankle. Views: 3 or more views. AP Oblique Lateral COMPARISON: CR XR ankle LT min 3V* [id number] 11/30/2019 4:06 AM FINDINGS: Bones/joints: There is normal alignment without fractures or dislocations. The tibiotalar joint and talar dome are unremarkable. The subtalar joint is unremarkable. There is no ankle joint effusion. The mortise is normal. The distal tibia-fibular alignment is unremarkable. Soft tissues: There is no radiographic soft tissue swelling. There are no radiopaque foreign bodies. Notes: If there is further concern, recommend follow-up radiographs or MRI for complete assessment. XR/XR ankle LT min 3V* [id number] IMPRESSION: No fractures or dislocation of the left ankle.
--- NOTE | 2023-03-11 09:56 | XRR_ITS ---
PROCEDURE INFORMATION: Exam: XR Left Foot Exam date and time: 03/11/2023 10:11 AM Age: 32 years old Clinical indication: Pain and injury or trauma; Other: Rolled ankle while walking; Sprain or strain; Ankle and foot; Left; Additional info: Injury/pain TECHNIQUE: Imaging protocol: Radiologic exam of the left foot. Views: 3 or more views. AP Oblique Lateral COMPARISON: CR XR foot LT min 3V* [id number] 11/30/2019 4:06 AM FINDINGS: Bones/joints: There is normal alignment without fractures or dislocations. The toe interphalangeal joints, tarsometatarsal joints, and metatarsophalangeal joints appear unremarkable. Tiny plantar calcaneal spur is once again seen. Soft tissues: There is no radiographic soft tissue swelling. There are no radiopaque foreign bodies. Notes: If there is further concern, recommend follow-up radiographs or MRI for complete assessment. XR/XR foot LT min 3V* [id number] IMPRESSION: No fractures or dislocation of the left foot.
== END 2023-03-11 11:06 | disposition home or self-care (01) ==
PROVIDERS: Emergency Provider Physician Assistant; PCP Physician Assistant
DX: S93.602A Unspecified sprain of left foot, initial encounter (principal); F17.210 Nicotine dependence, cigarettes, uncomplicated; X50.1XXA Overexertion from prolonged static or awkward postures, initial encounter
CPT/HCPCS: 73610; 73630; 99283

== ENCOUNTER 2023-03-14 07:13 | Emergency (ER) | payer BC, MEDICAID, SELFPAY ==
[2023-03-14 07:20] VITALS: BP 168/110; PULSE 90; RESP 18; TEMP 36.8; O2SAT 99; BMI 30.4
--- NOTE | 2023-03-14 07:25 | W.ED.SKABFB ---
HPI - Skin/Abscess/Foreign Bdy General: Chief complaint: Skin/Abscess/Foreign Body Stated complaint: rash Time Seen by Provider: 03/14/23 07:16 Source: patient Mode of arrival: ambulatory (on crutches) Limitations: no limitations History of Present Illness: 32-year-old female with a history of hypertension and recent ankle sprain presents to the ER today for a rash under bilateral breasts and in umbilicus. Patient reports rash has been present about a week. She stopped wearing a bra and the rash beneath the breast started improving some. She noticed last night the rash in the umbilicus. Both are itchy at times and other times arora slightly. Patient denies any recent changes in anything. Unsure of what might of caused the rash. Patient was recently diagnosed with an ankle sprain and is still using crutches. She has no concerns with that. She does report mild body aches and possible fever at home. She reports congestion and ear fullness over the last 24 hours. Denies any known sick contacts. Patient has not taken anything for the symptoms. Review of Systems General: Reports: 10 or more systems reviewed and unremarkable except in HPI and below PFSH ED PFSH: Medical History ADHD DDD (degenerative disc disease), lumbar No pertinent family history Substance abuse Social History Smoking and tobacco status: current every day smoker Physical Exam Const: COMMON NORMALS: no acute distress, average body habitus, patient oriented x3, no limitations, healthy appearing, alert and well nourished HENMT: COMMON NORMALS: normocephalic, atraumatic, external ears normal, TM's normal bilaterally, Normal external nose present, Normal nasal mucous membranes and turbinates present, moist oral mucous membranes and oropharynx normal HEAD & SCALP: normocephalic and atraumatic NOSE: Normal external nose present and Normal nasal mucous membranes and turbinates present EXTERNAL EAR: Yes external ears normal TYMPANIC MEMBRANE: TM's normal bilaterally THROAT: posterior oropharynx normal Eye: COMMON NORMALS: conjunctivae normal CONJUNCTIVA: Yes conjunctivae normal Neck/C-Spine: COMMON NORMALS: no lymphadenopathy Resp: COMMON NORMALS: normal respiratory effort, No retractions and clear to auscultation bilaterally AUSCULTATION: clear to auscultation bilaterally Cardio: COMMON NORMALS: regular rate, regular rhythm and No murmurs present (Cardio) RATE: regular rate RHYTHM: regular rhythm GI: COMMON NORMALS: Normal to inspection, nondistended, normoactive bowel sounds present, Soft to palpation and non-tender PALPATION: Yes Soft to palpation Extremity: NARRATIVE EXTREMITY EXAM: pt using crutches, no obvious swelling Neuro: COMMON NORMALS: patient oriented x3 SENSORIUM/ORIENTATION: Yes alert Psych: COMMON NORMALS: mental status grossly normal and Normal thought process present THOUGHT PROCESS: Normal thought process present Skin: NARRATIVE SKIN EXAM: Patient appears to have classic intertriginous candidiasis. This is improving under the breast but there is some mild rash noted under bilateral breast. This appears to be drying up. She also has similar rash within the umbilicus. No other abnormalities noted. No thrush noted within the mouth. Course ED course: Patient presents to the ER today for a rash for the last week or so. Rash is improving under the breast but still located in the umbilicus. Patient also has upper respiratory symptoms that began this morning/last night. No close sick contacts the patient is aware of. Exam performed, rash noted within the umbilicus. Patient is afebrile in the ER and oxygen saturation is normal. She is hypertensive however has not taken her morning blood pressure medications. Vital Signs: Vital signs: Vital Signs Temperature 98.2 F 03/14/23 07:20 Pulse Rate 90 03/14/23 07:20 Respiratory Rate 18 03/14/23 07:20 Blood Pressure 168/110 03/14/23 07:20 Pulse Oximetry 99 03/14/23 07:20 Oxygen Delivery Me thod Room Air 03/14/23 07:20 MDM - Skin/Abscess/Foreign Bdy Medicial Decision Making Intertriginous candidiasis noted under breasts which appears to be improving and also in the umbilicus. We will treat with clotrimazole. Recommended [id number] Goldbond powder and keeping these areas dry. Patient also appears to have a viral upper respiratory infection. Discussed with patient that cannot totally rule out COVID however my recommendation would be to go home and remain at home as long as she has any symptoms. She is afebrile today. Oxygen saturations are normal. Exam unremarkable. Discussed that this is like any other virus likely and will peak in 4 to 7 days. Push fluids. We will send in Mucinex for patient. Tylenol alternate with Motrin for fevers or pain. Return to the ER with new or worsening symptoms. Patient verbalized understanding and was in agreement with the treatment plan. Critical Care Time Critical Care Time: Critical Care Time: No Discharge Plan Discharge Patient Disposition: Home Clinical Impression: Candidiasis, intertriginous URI (upper respiratory infection) Qualifiers: URI type: unspecified viral URI Qualified Code(s): J06.9 - Acute upper respiratory infection, unspecified Condition: Stable Prescriptions: New clotrimazole 1 % cream 1 applic topical BID 7 Days Qty: 15 0RF Mucinex 1,200 mg tablet extended release 12hr 1,200 mg PO BID PRN (Reason: congestion) Qty: 14 0RF No Action fluoxetine 20 mg capsule PO omeprazole 20 mg capsule,delayed release(DR/EC) 20 mg PO DAILY propranolol 20 mg tablet PO acyclovir 800 mg tablet 800 mg PO DAILY Celebrex 100 mg capsule 100 mg PO BID PRN (Reason: pain) Qty: 20 0RF methocarbamol 750 mg tablet 1,500 mg PO Q8H Qty: 30 0RF cyclobenzaprine 10 mg tablet 10 mg PO BID PRN (Reason: muscle spasm) Qty: 20 0RF ibuprofen 800 mg tablet 800 mg PO Q8H PRN (Reason: pain) Qty: 20 0RF Discharge Orders: Discharge ED (Routine); Ordered 03/14/23 Ordered By: Melanie Mchugh Referrals: Betina Lemon PA [Primary Care Provider] - Discharge Diet: Usual diet Discharge Activity: Resume usual activity Patient Instructions: Opioid Safety, Pain Management Activity Restrictions/Additional Instructions: Use cream as prescribed. Keep areas of irritation dry. Use Goldbond powder [id number]. Take Mucinex for upper respiratory symptoms. Push fluids. Tylenol alternate with Motrin for fever or pain. Follow-up with PCP in 1 week. Return to the ER with new or worsening symptoms. 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
== END 2023-03-14 07:34 | disposition home or self-care (01) ==
PROVIDERS: Emergency Provider Physician Assistant; PCP Physician Assistant
DX: B37.2 Candidiasis of skin and nail (principal); J06.9 Acute upper respiratory infection, unspecified; F17.210 Nicotine dependence, cigarettes, uncomplicated
CPT/HCPCS: 99283

== ENCOUNTER 2023-10-04 05:28 | Emergency (ER) | payer BC, MEDICAID, SELFPAY ==
[2023-10-04 05:32] VITALS: BP 206/129; PULSE 106; RESP 16; TEMP 36.4; O2SAT 97
--- NOTE | 2023-10-04 05:45 | ED_ITS ---
Documented by User: Clemente Wilkins MD 10/04/23 07:49 HPI - Abdominal Pain 2 General: Chief Complaint: Abdominal Pain Stated Complaint: R flank pain Time Seen by Provider: 10/04/23 05:37 History of Present Illness: 33-year-old female presents emerged part with complaints of sharp right flank pain that was a 10 out of 10 and woke her up approximately 1 hour prior to come to the emergency department. She states she felt a burning sharp pain around her right flank coming down to her right abdominal area. She states she did have nausea and vomiting x 1 and she states now she is pain-free but she became concerned. She denies fevers chills or night sweats. She denies dysuria or discharge. She states she has not had history of kidney stones. Patient states she has a history of hypertension but takes medication for that. Associated Symptoms: Reports nausea and vomiting Review of Systems 2 General: Reports: 10 or more systems reviewed and unremarkable except in HPI and below GI: Reports: abdominal pain, nausea and vomiting : Reports: flank pain PFSH ED 2 PFSH: Medical History ADHD DDD (degenerative disc disease), lumbar No pertinent family history Substance abuse Social History Smoking and tobacco/nicotine status: current every day tobacco/nicotine user Physical Exam 2 Narrative: EXAM NARRATIVE: Constitutional: the patient appears well nourished and of normal development. Vital signs as documented. No acute distress at present. Alert and oriented-to person, place, time and situation. Head, eyes, ears, nose, mouth, throat: Normocephalic, atraumatic. Pupils-equal, round, reactive to light. No scleral icterus. Normal-appearing external ears. Normal appearing nasal turbinates, no drainage. No obvious oral lesions, Neck: Supple, trachea is midline, no lymphadenopathy, no jugular venous distension, thyromegaly, or carotid bruits. Carotid upstrokes are brisk bilaterally. Lungs: clear to auscultation to all lung bergeron. Symmetrical rise and fall of chest, no obvious signs of increased work of breathing at present. Cardiac: Sinus tachycardia, positive S1, S2. No murmurs, rubs or gallops that I can appreciate Abdomen: Soft, non-tender to palpation, normal active bowel sounds to all quadrants. No palpable masses, no organomegaly and abdominal bruits. Extremities: 2+ pulses in the upper extremities that are equal bilaterally, 2+ pulses in the lower extremities that are equal bilaterally. Non-edematous. Moves all extremities well, sensation to all extremities are noted. Skin: Warm, dry, intact. Back: No CVA tenderness, normal alignment, no bruising, Course 2 Vital Signs: Vital signs: Vital Signs Temperature 97.5 F L 10/04/23 05:32 Pulse Rate 85 10/04/23 08:16 Respiratory Rate 16 10/04/23 05:32 Blood Pressure 149/88 10/04/23 08:16 Pulse Oximetry 99 10/04/23 08:16 Oxygen Delivery Me thod Room Air 10/04/23 08:16 MDM - Abdominal Pain Medical Decision Making Physical exam completed document I have ordered a CBC and CMP, urinalysis and urine hCG. I have discussed the patient's case with the on-coming physician <Dr. Escalante> and they have assumed care of the patient. We have discussed the current lab/radiographic results that have been resulted and the pending tests. Medical Records I reviewed the patient's medical records. Lab Data 10/04/23 05:43 10/04/23 05:43 Labs/Radiology: Radiology Impressions Abdomen/Pelvis CT 10/04/23 06:21 IMPRESSION: Minimally obstructing distal right ureteral calculus. Laboratory Results WBC 13.30 10^3/uL (3.29-11.43) H 10/04/23 05:43 RBC 5.69 10^6/uL (3.85-5.65) H 10/04/23 05:43 Hgb 16.20 g/dL (11.27-16.99) 10/04/23 05:43 Hct 48.7 % (36-47) H 10/04/23 05:43 MCV 85.6 fl (85-98) 10/04/23 05:43 MCH 28.5 pg (27-33) 10/04/23 05:43 MCHC 33.3 g/dL (30-55) 10/04/23 05:43 RDW 12.9 % (12.1-15.1) 10/04/23 05:43 Plt Count 406 10^3/cmm (157-399) H 10/04/23 05:43 MPV 8.8 fL (7.4-10.4) 10/04/23 05:43 Neut % (Auto) 56.6 % 10/04/23 05:43 Lymph % (Auto) 36.2 % 10/04/23 05:43 [place] % (Auto) 4.7 % 10/04/23 05:43 Eos % (Auto) 1.7 % 10/04/23 05:43 Baso % (Auto) 0.5 % 10/04/23 05:43 Neut # (Auto) 7.54 10^3/uL (1.8-7.7) 10/04/23 05:43 Lymph # (Auto) 4.8 10^3/uL (0.8-4.8) 10/04/23 05:43 [place] # (Auto) 0.6 10^3/uL (0.2-0.9) 10/04/23 05:43 Eos # (Auto) 0.2 10^3/uL (0.0-0.8) 10/04/23 05:43 Baso # (Auto) 0.1 10^3/uL (0.0-0.1) 10/04/23 05:43 Nucleated RBC % (auto) 0 % 10/04/23 05:43 Nucleated RBCs # 0.0 /100WBC 10/04/23 05:43 Sodium 139 mmol/L (136-145) 10/04/23 05:43 Potassium 2.9 mmol/L (3.5-5.1) L 10/04/23 05:43 Chloride 100 mmol/L (98-107) 10/04/23 05:43 Carbon Dioxide 27 mmol/L (22-29) 10/04/23 05:43 Anion Gap 14.9 (5-19) 10/04/23 05:43 BUN 9 mg/dL (6-20) 10/04/23 05:43 Creatinine 0.7 mg/dL (0.5-0.9) 10/04/23 05:43 GFR Calculation 95.8 mL/min (90-130) 10/04/23 05:43 Glucose 92 mg/dL (65-115) 10/04/23 05:43 Calculated Osmolality 286 mOsm/kg (285-295) 10/04/23 05:43 Calcium 10.1 mg/dL (8.5-10.5) 10/04/23 05:43 Total Bilirubin 0.6 mg/dL (0.15-1.2) 10/04/23 05:43 AST 19 U/L (0-32) 10/04/23 05:43 ALT 24 U/L (0-33) 10/04/23 05:43 Alkaline Phosphatase 133 U/L (35-105) H 10/04/23 05:43 Total Protein 8.7 g/dL (6.6-8.7) 10/04/23 05:43 Albumin 5.0 g/dL (3.5-5.2) 10/04/23 05:43 Globulin 3.7 g/dL (1.3-4.6) 10/04/23 05:43 HCG, Qual Negative (Negative) 10/04/23 06:12 Urine Color Red (Yellow) A 10/04/23 06:12 Urine Appearance Hazy (CLEAR) A 10/04/23 06:12 Urine pH 6.5 (5-7) 10/04/23 06:12 Ur Specific [place] 1.025 (1.005-1.030) 10/04/23 06:12 Urine Protein 2+ (Negative) H 10/04/23 06:12 Urine Glucose (UA) Norm (Normal) 10/04/23 06:12 Urine Ketones Negative (Negative) 10/04/23 06:12 Urine Blood 2+ (Negative) H 10/04/23 06:12 Urine Nitrate Positive (Negative) H 10/04/23 06:12 Urine Bilirubin Neg (Negative) 10/04/23 06:12 Urine Urobilinogen Neg mg/dL (Negative) 10/04/23 06:12 Ur Leukocyte Esterase 1+ (Negative) H 10/04/23 06:12 Urine RBC 80-100 /hpf (0-2) H 10/04/23 06:12 Urine WBC 15-25 /hpf (0-5) H 10/04/23 06:12 Ur Squamous Epith Cells 0-4 /hpf (0-5) H 10/04/23 06:12 Amorphous Sediment Not Reportable 10/04/23 06:12 Urine Bacteria 1+ /hpf (NONE) H 10/04/23 06:12 Urine Mucus Trace /hpf 10/04/23 06:12 Urine Yeast 1+ /hpf H 10/04/23 06:12 All radiology interpretation(s) finalized by discharge Discharge Plan Discharge Patient Disposition: Home Clinical Impression: Acute right flank pain, Acute hypokalemia, Calculus of kidney, Acute cystitis Condition: Stable Prescriptions: New nitrofurantoin monohyd/m-cryst [Macrobid] 100 mg capsule 100 mg PO BID 7 Days Qty: 14 0RF Rx Instructions: must administer with a meal/food tamsulosin [Flomax] 0.4 mg capsule 0.4 mg PO DAILY Qty: 14 0RF No Action fluoxetine 20 mg capsule 60 mg PO DAILY omeprazole 20 mg capsule,delayed release(DR/EC) 20 mg PO DAILY propranolol 20 mg tablet 20 mg PO BID buspirone 5 mg tablet 5 mg PO BID trazodone 50 mg tablet 50 mg PO BEDTIME lisinopril-hydrochlorothiazide 20-25 mg tablet 1 tab PO DAILY hydroxyzine HCl 25 mg tablet 25 mg PO TID PRN (Reason: Anxiety) Symbicort 160-4.5 mcg/actuation HFA aerosol inhaler 1 puff INHALATION BID Discharge Orders: Discharge ED (Routine); Ordered 10/04/23 Ordered By: Quinton Escalante Referrals: Betina Lemon PA [Primary Care Provider] - Discharge Diet: Advance as tolerated Discharge Activity: Resume usual activity Patient Instructions: Opioid Safety, Pain Management Activity Restrictions/Additional Instructions: Please follow-up with your primary care physician for further management of kidney stone. Please return to the emergency department if you develop pain not controlled by Tylenol or ibuprofen, fevers greater than 100.5. Or inability to urinate for greater than 24 hours. Coding Level of Care Code ED [employer] for Chg Fwd Documented by User: Quinton Escalante DO 10/04/23 09:05 HPI - Abdominal Pain 2 General: Chief Complaint: Abdominal Pain Stated Complaint: R flank pain Time Seen by Provider: 03/30/24 05:37 PFSH ED 2 PFSH: Medical History ADHD DDD (degenerative disc disease), lumbar No pertinent family history Substance abuse Social History Smoking and tobacco/nicotine status: current every day tobacco/nicotine user Course 2 Vital Signs: Vital signs: Vital Signs Temperature 97.5 F L 10/04/23 05:32 Pulse Rate 85 10/04/23 08:16 Respiratory Rate 16 10/04/23 05:32 Blood Pressure 149/88 10/04/23 08:16 Pulse Oximetry 99 10/04/23 08:16 Oxygen Delivery Me thod Room Air 10/04/23 08:16 MDM - Abdominal Pain Lab Data 10/04/23 05:43 10/04/23 05:43 Labs/Radiology: Radiology Impressions Abdomen/Pelvis CT 10/04/23 06:21 IMPRESSION: Minimally obstructing distal right ureteral calculus. Laboratory Results WBC 13.30 10^3/uL (3.29-11.43) H 10/04/23 05:43 RBC 5.69 10^6/uL (3.85-5.65) H 10/04/23 05:43 Hgb 16.20 g/dL (11.27-16.99) 10/04/23 05:43 Hct 48.7 % (36-47) H 10/04/23 05:43 MCV 85.6 fl (85-98) 10/04/23 05:43 MCH 28.5 pg (27-33) 10/04/23 05:43 MCHC 33.3 g/dL (30-55) 10/04/23 05:43 RDW 12.9 % (12.1-15.1) 10/04/23 05:43 Plt Count 406 10^3/cmm (157-399) H 10/04/23 05:43 MPV 8.8 fL (7.4-10.4) 10/04/23 05:43 Neut % (Auto) 56.6 % 10/04/23 05:43 Lymph % (Auto) 36.2 % 10/04/23 05:43 [place] % (Auto) 4.7 % 10/04/23 05:43 Eos % (Auto) 1.7 % 10/04/23 05:43 Baso % (Auto) 0.5 % 10/04/23 05:43 Neut # (Auto) 7.54 10^3/uL (1.8-7.7) 10/04/23 05:43 Lymph # (Auto) 4.8 10^3/uL (0.8-4.8) 10/04/23 05:43 [place] # (Auto) 0.6 10^3/uL (0.2-0.9) 10/04/23 05:43 Eos # (Auto) 0.2 10^3/uL (0.0-0.8) 10/04/23 05:43 Baso # (Auto) 0.1 10^3/uL (0.0-0.1) 10/04/23 05:43 Nucleated RBC % (auto) 0 % 10/04/23 05:43 Nucleated RBCs # 0.0 /100WBC 10/04/23 05:43 Sodium 139 mmol/L (136-145) 10/04/23 05:43 Potassium 2.9 mmol/L (3.5-5.1) L 10/04/23 05:43 Chloride 100 mmol/L (98-107) 10/04/23 05:43 Carbon Dioxide 27 mmol/L (22-29) 10/04/23 05:43 Anion Gap 14.9 (5-19) 10/04/23 05:43 BUN 9 mg/dL (6-20) 10/04/23 05:43 Creatinine 0.7 mg/dL (0.5-0.9) 10/04/23 05:43 GFR Calculation 95.8 mL/min (90-130) 10/04/23 05:43 Glucose 92 mg/dL (65-115) 10/04/23 05:43 Calculated Osmolality 286 mOsm/kg (285-295) 10/04/23 05:43 Calcium 10.1 mg/dL (8.5-10.5) 10/04/23 05:43 Total Bilirubin 0.6 mg/dL (0.15-1.2) 10/04/23 05:43 AST 19 U/L (0-32) 10/04/23 05:43 ALT 24 U/L (0-33) 10/04/23 05:43 Alkaline Phosphatase 133 U/L (35-105) H 10/04/23 05:43 Total Protein 8.7 g/dL (6.6-8.7) 10/04/23 05:43 Albumin 5.0 g/dL (3.5-5.2) 10/04/23 05:43 Globulin 3.7 g/dL (1.3-4.6) 10/04/23 05:43 HCG, Qual Negative (Negative) 10/04/23 06:12 Urine Color Red (Yellow) A 10/04/23 06:12 Urine Appearance Hazy (CLEAR) A 10/04/23 06:12 Urine pH 6.5 (5-7) 10/04/23 06:12 Ur Specific [place] 1.025 (1.005-1.030) 10/04/23 06:12 Urine Protein 2+ (Negative) H 10/04/23 06:12 Urine Glucose (UA) Norm (Normal) 10/04/23 06:12 Urine Ketones Negative (Negative) 10/04/23 06:12 Urine Blood 2+ (Negative) H 10/04/23 06:12 Urine Nitrate Positive (Negative) H 10/04/23 06:12 Urine Bilirubin Neg (Negative) 10/04/23 06:12 Urine Urobilinogen Neg mg/dL (Negative) 10/04/23 06:12 Ur Leukocyte Esterase 1+ (Negative) H 10/04/23 06:12 Urine RBC 80-100 /hpf (0-2) H 10/04/23 06:12 Urine WBC 15-25 /hpf (0-5) H 10/04/23 06:12 Ur Squamous Epith Cells 0-4 /hpf (0-5) H 10/04/23 06:12 Amorphous Sediment Not Reportable 10/04/23 06:12 Urine Bacteria 1+ /hpf (NONE) H 10/04/23 06:12 Urine Mucus Trace /hpf 10/04/23 06:12 Urine Yeast 1+ /hpf H 10/04/23 06:[address] Abd/Pel: Radiologist's impression: Minimally obstructing distal right ureteral calculi. Calculus measuring 3 mm. All radiology interpretation(s) finalized by discharge Discharge Plan Discharge Patient Disposition: Home Clinical Impression: Acute right flank pain, Acute hypokalemia, Calculus of kidney, Acute cystitis Condition: Stable Prescriptions: New nitrofurantoin monohyd/m-cryst [Macrobid] 100 mg capsule 100 mg PO BID 7 Days Qty: 14 0RF Rx Instructions: must administer with a meal/food tamsulosin [Flomax] 0.4 mg capsule 0.4 mg PO DAILY Qty: 14 0RF No Action fluoxetine 20 mg capsule 60 mg PO DAILY omeprazole 20 mg capsule,delayed release(DR/EC) 20 mg PO DAILY propranolol 20 mg tablet 20 mg PO BID buspirone 5 mg tablet 5 mg PO BID trazodone 50 mg tablet 50 mg PO BEDTIME lisinopril-hydrochlorothiazide 20-25 mg tablet 1 tab PO DAILY hydroxyzine HCl 25 mg tablet 25 mg PO TID PRN (Reason: Anxiety) Symbicort 160-4.5 mcg/actuation HFA aerosol inhaler 1 puff INHALATION BID Discharge Orders: Discharge ED (Routine); Ordered 10/04/23 Ordered By: Quinton Escalante Referrals: Betina Lemon PA [Primary Care Provider] - Discharge Diet: Advance as tolerated Discharge Activity: Resume usual activity Patient Instructions: Opioid Safety, Pain Management Activity Restrictions/Additional Instructions: Please follow-up with your primary care physician for further management of kidney stone. Please return to the emergency department if you develop pain not controlled by Tylenol or ibuprofen, fevers greater than 100.5. Or inability to urinate for greater than 24 hours. Coding Level of Care Code ED [employer] for Adrianna Grier
[2023-10-04 05:51] VITALS: BP 158/104
[2023-10-04 05:59] LABS: Basophils # 0.1 10^3/uL (0.0-0.1); Basophils % 0.5 %; Eosinophils # 0.2 10^3/uL (0.0-0.8); Eosinophils % 1.7 %; Hematocrit 48.7 % (36-47); Lymphocytes # 4.8 10^3/uL (0.8-4.8); Lymphocytes % 36.2 %; Mean Corpuscular HGB Conc 33.3 g/dL (30-55); Mean Corpuscular Hemoglobin 28.5 pg (27-33); Mean Corpuscular Volume 85.6 fl (85-98); Mean Platelet Volume 8.8 fL (7.4-10.4); Monocytes # 0.6 10^3/uL (0.2-0.9); Monocytes % 4.7 %; Neutrophils # 7.54 10^3/uL (1.8-7.7); Neutrophils % 56.6 %; Nucleated Red Blood Cells % 0 %; Platelet Count 406 10^3/cmm (157-399); Red Blood Count 5.69 10^6/uL (3.85-5.65); Red Cell Distribution Width 12.9 % (12.1-15.1)
[2023-10-04 06:12] LABS: Alanine Aminotransferase 24 U/L (0-33); Alkaline Phosphatase 133 U/L (35-105); Anion Gap 14.9 (5-19); Aspartate Amino Transferase 19 U/L (0-32); Blood Urea Nitrogen 9 mg/dL (6-20); Calcium 10.1 mg/dL (8.5-10.5); Carbon Dioxide 27 mmol/L (22-29); Chloride 100 mmol/L (98-107); Creatinine Clr Calc Pharmacy 125.3026; Globulin 3.7 g/dL (1.3-4.6); Glomerular Filtration Rate 95.8 mL/min (90-130); Glucose 92 mg/dL (65-115); Osmolality Calculated 286 mOsm/kg (285-295); Sodium 139 mmol/L (136-145); Total Bilirubin 0.6 mg/dL (0.15-1.2); Total Protein 8.7 g/dL (6.6-8.7)
[2023-10-04 06:13] LABS: Potassium 2.9 mmol/L (3.5-5.1)
[2023-10-04] MEDS: potassium chloride ER 20 mEq Tablet 40 MEQ PO (06:20)
--- NOTE | 2023-10-04 06:21 | CTR_ITS ---
PROCEDURE INFORMATION: Exam: CT Abdomen And Pelvis Without Contrast Exam date and time: 10/04/2023 6:39 AM Age: 33 years old Clinical indication: Abdominal pain; Flank; Right; Additional info: Right flank pain TECHNIQUE: Imaging protocol: Computed tomography of the abdomen and pelvis without contrast. Radiation optimization: All CT scans at this facility use at least one of these dose optimization techniques: automated exposure control; mA and/or kV adjustment per patient size (includes targeted exams where dose is matched to clinical indication); or iterative reconstruction. COMPARISON: CT abdomen pelvis w con* [id number] 02/05/2020 5:35 PM RADIATION DOSE METRICS: Total DLP (mGy-cm): 518.26 FINDINGS: Liver: 20 cm borderline hepatomegaly. Gallbladder and bile ducts: Normal. No calcified stones. No ductal dilation. Pancreas: Normal. No ductal dilation. Spleen: Normal. No splenomegaly. Adrenal glands: Normal. No mass. Kidneys and ureters: There is a 3 mm minimally obstructing distal right ureteral calculus (3-180). Stomach and bowel: Unremarkable. No obstruction. No mucosal thickening. Appendix: No evidence of appendicitis. Intraperitoneal space: Unremarkable. No free air. No significant fluid collection. Vasculature: Unremarkable. No abdominal aortic aneurysm. Lymph nodes: Unremarkable. No enlarged lymph nodes. Urinary bladder: Unremarkable as visualized. Reproductive: Unremarkable as visualized. Bones/joints: Unremarkable. No acute fracture. Soft tissues: Unremarkable. CT/CT kidney stone [id number] IMPRESSION: Minimally obstructing distal right ureteral calculus.
[2023-10-04 06:28] LABS: HCG Qualitative Urine. Negative (Negative)
[2023-10-04 06:29] LABS: Add Urine Microscopic? YES; Bilirubin Urine Neg (Negative); Blood Urine 2+ (Negative); Glucose Urine UA Norm (Normal); Ketones Urine Negative (Negative); Leukocyte Esterase Urine 1+ (Negative); Nitrate Urine Positive (Negative); Protein Urine 2+ (Negative); Specific Gravity, Urine 1.025 (1.005-1.030); Urine Appearance Hazy (CLEAR); Urine Color Red (Yellow); Urobilinogen Urine Neg (Negative); pH Urine 6.5 (5-7)
[2023-10-04 06:30] LABS: Add Urine Culture? Yes; Bacteria Urine 1+ /hpf; Mucus Urine TRACE /hpf; RBC Urine 80-100 /hpf (0-2); Squamous Epithelial Cell Urine 0-4 /hpf (0-5); WBC Urine 15-25 /hpf (0-5)
[2023-10-04] MEDS: cefTRIAXone 1,000 MG in sodium chloride 0.9% (plus) 50 ML 100 MG IV (07:52)
[2023-10-04 08:16] VITALS: BP 149/88; PULSE 85; O2SAT 99
[2023-10-04 09:17] VITALS: BP 149/88; PULSE 85; RESP 16; TEMP 36.4; O2SAT 99
== END 2023-10-04 09:24 | disposition home or self-care (01) ==
PROVIDERS: Internal Medicine; Emergency Provider General Practice; PCP Physician Assistant
DX: N30.00 Acute cystitis without hematuria (principal); N20.0 Calculus of kidney; E87.6 Hypokalemia; Z72.0 Tobacco use
CPT/HCPCS: 74176; 80053; 81001; 81025; 85025; 87086; 96374; 99285; J0696

== ENCOUNTER 2023-10-08 05:42 | Emergency (ER) | payer BC, MEDICAID, SELFPAY ==
[2023-10-08 05:46] VITALS: PULSE 118; RESP 25; TEMP 36.7; O2SAT 100
--- NOTE | 2023-10-08 05:51 | W.ED.GENADLT ---
HPI - General Adult General: Chief complaint: Urogenital-Female Stated complaint: back pain Time Seen by Provider: 10/08/23 05:47 Source: patient Mode of arrival: ambulatory History of Present Illness: 33-year-old female was seen 3 days ago for nephrolithiasis. At that time she also had a UTI. She was discharged home on tamsulosin and Macrobid. She returns today with continued right flank pain and gross hematuria. No fever sweats or chills. No vomiting or diarrhea. Patient denies previous history of nephrolithiasis. She does not believe she has passed the stone to this point she has not been straining her urine. Onset (ago): day(s) Location: back (Right flank) Radiation: other (Right groin and genitals) Severity: severe Quality: sharp Pain Consistency: constant Relieving factors: none Exacerbating factors: none Associated symptoms: Deny chest pain, confusion, cough, diaphoresis, decreased appetite, dyspnea, fevers/chills, headache(s), malaise, nausea, rash, palpitations, seizures, short of breath, syncope, vomiting or weakness Treatments prior to arrival: none Review of Systems Const: Denies: fever(s), chills, malaise or diaphoresis Card: Denies: chest pain, palpitations or syncope Resp: Denies: dyspnea GI: Denies: abdominal pain, nausea or vomiting : Reports: flank pain, dysuria and hematuria; Denies: urinary frequency or urinary urgency Musc: Reports: back pain; Denies: neck pain Skin/Breast: Denies: rash Neuro: Denies: headache(s) or confusion [facility] ED PFSH: Medical History No pertinent family history DDD (degenerative disc disease), lumbar Substance abuse ADHD Social History Smoking and tobacco/nicotine status: current every day tobacco/nicotine user Physical Exam Const: GENERAL APPEARANCE: cooperative and comfortable ORIENTATION/CONSCIOUSNESS: Yes awake, Yes oriented to person, Yes oriented to place and Yes oriented to time HENMT: COMMON NORMALS: normocephalic, atraumatic and hearing grossly normal bilaterally HEAD & SCALP: normocephalic and atraumatic Resp: COMMON NORMALS: normal respiratory effort, No retractions, No use of accessory muscles and clear to auscultation bilaterally AUSCULTATION: clear to auscultation bilaterally Cardio: COMMON NORMALS: regular rate, regular rhythm and No murmurs present (Cardio) RATE: regular rate RHYTHM: regular rhythm GI: COMMON NORMALS: Soft to palpation and No hepatosplenomegaly present AUSCULTATION: Yes normoactive bowel sounds PALPATION: Yes Soft to palpation, No Tenderness to palpation present (GI), No Guarding due to palpation present (GI) and Yes No hepatosplenomegaly present : BLADDER/KIDNEY EXAM: Yes CVA tenderness Back/Pelvis: GENERAL BACK: Yes CVA tenderness CVA tenderness: right Extremity: COMMON NORMALS: normal to inspection, capillary refill normal, no clubbing, cyanosis or edema, no calf tenderness and no pedal edema Neuro: SENSORIUM/ORIENTATION: Yes oriented to person, Yes oriented to place and Yes oriented to time Skin: COMMON NORMALS: no rashes or lesions noted GENERAL SKIN EXAM: no rashes or lesions noted Course Vital Signs: Vital signs: Vital Signs Temperature 98.1 F 10/08/23 05:46 Pulse Rate 118 H 10/08/23 05:46 Respiratory Rate 25 H 10/08/23 05:46 Pulse Oximetry 100 10/08/23 05:46 Oxygen Delivery Me thod Room Air 10/08/23 05:46 MDM - General Adult Medical Decision Making Known right nephrolithiasis CT does not show obstruction. She does not have any pain medications at home. UA shows persistent signs of cystitis her white count however is decreased she has been taking the Macrobid. She denies any fever at home. Her pain is controlled after medications given here. Will have her strain her urine. Continue Macrobid until culture is resulted and adjust as appropriate. Referral to urology. If pain uncontrolled or develops fever return to the emergency room. Medical Records I reviewed the patient's medical records. Lab Data I reviewed the patient's lab results. 10/08/23 05:55 10/08/23 05:55 Radiology Impressions Abdomen/Pelvis CT 10/08/23 06:19 IMPRESSION: Mildly obstructing right UVJ calculus, minimally more distal than was seen previously. Laboratory Results WBC 11.54 10^3/uL (3.29-11.43) H 10/08/23 05:55 RBC 5.34 10^6/uL (3.85-5.65) 10/08/23 05:55 Hgb 15.30 g/dL (11.27-16.99) 10/08/23 05:55 Hct 46.3 % (36-47) 10/08/23 05:55 MCV 86.7 fl (85-98) 10/08/23 05:55 MCH 28.7 pg (27-33) 10/08/23 05:55 MCHC 33.0 g/dL (30-55) 10/08/23 05:55 RDW 12.8 % (12.1-15.1) 10/08/23 05:55 Plt Count 415 10^3/cmm (157-399) H 10/08/23 05:55 MPV 8.6 fL (7.4-10.4) 10/08/23 05:55 Neut % (Auto) 48.5 % 10/08/23 05:55 Lymph % (Auto) 41.7 % 10/08/23 05:55 [place] % (Auto) 7.6 % 10/08/23 05:55 Eos % (Auto) 1.6 % 10/08/23 05:55 Baso % (Auto) 0.3 % 10/08/23 05:55 Neut # (Auto) 5.59 10^3/uL (1.8-7.7) 10/08/23 05:55 Lymph # (Auto) 4.8 10^3/uL (0.8-4.8) 10/08/23 05:55 [place] # (Auto) 0.9 10^3/uL (0.2-0.9) 10/08/23 05:55 Eos # (Auto) 0.2 10^3/uL (0.0-0.8) 10/08/23 05:55 Baso # (Auto) 0.0 10^3/uL (0.0-0.1) 10/08/23 05:55 Nucleated RBC % (auto) 0 % 10/08/23 05:55 Nucleated RBCs # 0.0 /100WBC 10/08/23 05:55 Sodium 137 mmol/L (136-145) 10/08/23 05:55 Potassium 3.2 mmol/L (3.5-5.1) L 10/08/23 05:55 Chloride 101 mmol/L (98-107) 10/08/23 05:55 Carbon Dioxide 25 mmol/L (22-29) 10/08/23 05:55 Anion Gap 14.2 (5-19) 10/08/23 05:55 BUN 9 mg/dL (6-20) 10/08/23 05:55 Creatinine 0.7 mg/dL (0.5-0.9) 10/08/23 05:55 GFR Calculation 95.8 mL/min (90-130) 10/08/23 05:55 Glucose 114 mg/dL (65-115) 10/08/23 05:55 Calculated Osmolality 284 mOsm/kg (285-295) L 10/08/23 05:55 Calcium 9.8 mg/dL (8.5-10.5) 10/08/23 05:55 Total Bilirubin 1.1 mg/dL (0.15-1.2) 10/08/23 05:55 AST 14 U/L (0-32) 10/08/23 05:55 ALT 15 U/L (0-33) 10/08/23 05:55 Alkaline Phosphatase 128 U/L (35-105) H 10/08/23 05:55 Total Protein 8.0 g/dL (6.6-8.7) 10/08/23 05:55 Albumin 4.4 g/dL (3.5-5.2) 10/08/23 05:55 Globulin 3.6 g/dL (1.3-4.6) 10/08/23 05:55 HCG, Qual Negative (Negative) 10/08/23 05:55 Urine Color Dark yellow (Yellow) 10/08/23 06:03 Urine Appearance Cloudy (CLEAR) A 10/08/23 06:03 Urine pH 6.5 (5-7) 10/08/23 06:03 Ur Specific [place] 1.020 (1.005-1.030) 10/08/23 06:03 Urine Protein 3+ (Negative) H 10/08/23 06:03 Urine Glucose (UA) Norm (Normal) 10/08/23 06:03 Urine Ketones 1+ (Negative) H 10/08/23 06:03 Urine Blood 3+ (Negative) H 10/08/23 06:03 Urine Nitrate Positive (Negative) H 10/08/23 06:03 Urine Bilirubin Neg (Negative) 10/08/23 06:03 Urine Urobilinogen 1 mg/dL (Negative) H 10/08/23 06:03 Ur Leukocyte Esterase 2+ (Negative) H 10/08/23 06:03 Urine RBC 40-50 /hpf (0-2) H 10/08/23 06:03 Urine WBC 10-15 /hpf (0-5) H 10/08/23 06:03 Ur Squamous Epith Cells 5-10 /hpf (0-5) H 10/08/23 06:03 Amorphous Sediment Not Reportable 10/08/23 06:03 Urine Bacteria 2+ /hpf (NONE) H 10/08/23 06:03 All radiology interpretation(s) finalized by discharge Discharge Plan Discharge Patient Disposition: Home Clinical Impression: Calculus of kidney Acute cystitis Qualifiers: Hematuria presence: without hematuria Qualified Code(s): N30.00 - Acute cystitis without hematuria Condition: Stable Prescriptions: New hydrocodone-acetaminophen 5-325 mg tablet 1 tab PO Q6H PRN (Reason: pain) Qty: 20 0RF No Action fluoxetine 20 mg capsule 60 mg PO DAILY omeprazole 20 mg capsule,delayed release(DR/EC) 20 mg PO DAILY propranolol 20 mg tablet 20 mg PO BID buspirone 5 mg tablet 5 mg PO BID trazodone 50 mg tablet 50 mg PO BEDTIME lisinopril-hydrochlorothiazide 20-25 mg tablet 1 tab PO DAILY hydroxyzine HCl 25 mg tablet 25 mg PO TID PRN (Reason: Anxiety) Symbicort 160-4.5 mcg/actuation HFA aerosol inhaler 1 puff INHALATION BID Macrobid 100 mg capsule 100 mg PO BID 7 Days Qty: 14 0RF Rx Instructions: must administer with a meal/food Flomax 0.4 mg capsule 0.4 mg PO DAILY Qty: 14 0RF Discharge Orders: Discharge ED (Routine); Ordered 10/08/23 Ordered By: Leo Watkins Referrals: Betina Lemon PA [Primary Care Provider] - Discharge Diet: Usual diet Discharge Activity: Increase activity as tolerated Patient Instructions: Kidney Stones (ED), How to Strain Your Urine (ED), Opioid Safety, Pain Management Activity Restrictions/Additional Instructions: Thank you for choosing [facility] for your healthcare needs today. Please realize this is an emergency room and that we are providing you with a medical screening exam and this may not be complete and all inclusive of all the testing and or work up that you may need to determine your ailment or severity of your illness. It is very important that you follow up as instructed or that you return to the Emergency Department should you have concerns or if your condition changes or worsens in any way. You were seen today for persistent kidney stone. Will discharge you home with pain medications to use as needed. Case management make arrangements for you to follow-up with urology. If you develop fever return to the emergency room. Continue the antibiotics previously prescribed. Your white count has decreased since your last visit urine will be recultured. The previous culture showed it was sensitive to the antibiotic you were prescribed. You should also strain your urine to catch the stone for analysis. Coding Level of Care Code ED N[employer] for Adrianna Grier
[2023-10-08] MEDS: sodium chloride 0.9% 1,000 ML 999 ML IV (05:56)
[2023-10-08] MEDS: ketorolac 30 mg/mL INJ IVP (05:56)
[2023-10-08] MEDS: morphine 4 mg/mL SDV 1 mL IVP (05:57)
[2023-10-08 06:02] LABS: Basophils % 0.3 %; Eosinophils # 0.2 10^3/uL (0.0-0.8); Eosinophils % 1.6 %; Hematocrit 46.3 % (36-47); Lymphocytes # 4.8 10^3/uL (0.8-4.8); Lymphocytes % 41.7 %; Mean Corpuscular Hemoglobin 28.7 pg (27-33); Mean Corpuscular Volume 86.7 fl (85-98); Mean Platelet Volume 8.6 fL (7.4-10.4); Monocytes # 0.9 10^3/uL (0.2-0.9); Monocytes % 7.6 %; Neutrophils # 5.59 10^3/uL (1.8-7.7); Neutrophils % 48.5 %; Nucleated Red Blood Cells % 0 %; Platelet Count 415 10^3/cmm (157-399); Red Blood Count 5.34 10^6/uL (3.85-5.65); Red Cell Distribution Width 12.8 % (12.1-15.1); White Blood Count 11.54 10^3/uL (3.29-11.43)
[2023-10-08 06:13] LABS: HCG, Serum Qual Negative (Negative)
--- NOTE | 2023-10-08 06:19 | CTR_ITS ---
PROCEDURE INFORMATION: Exam: CT Abdomen And Pelvis Without Contrast Exam date and time: 10/08/2023 6:31 AM Age: 33 years old Clinical indication: Abdominal pain; Flank; Right; Additional info: Flank pain TECHNIQUE: Imaging protocol: Computed tomography of the abdomen and pelvis without contrast. Radiation optimization: All CT scans at this facility use at least one of these dose optimization techniques: automated exposure control; mA and/or kV adjustment per patient size (includes targeted exams where dose is matched to clinical indication); or iterative reconstruction. COMPARISON: CT kidney stone [id number] 10/04/2023 6:39 AM RADIATION DOSE METRICS: Total DLP (mGy-cm): 508.53 FINDINGS: Liver: Stable borderline hepatomegaly. Gallbladder and bile ducts: Normal. No calcified stones. No ductal dilation. Pancreas: Normal. No ductal dilation. Spleen: Normal. No splenomegaly. Adrenal glands: Normal. No mass. Kidneys and ureters: Normal. No hydronephrosis. Stomach and bowel: Unremarkable. No obstruction. No mucosal thickening. Appendix: No evidence of appendicitis. Intraperitoneal space: Unremarkable. No free air. No significant fluid collection. Vasculature: Unremarkable. No abdominal aortic aneurysm. Lymph nodes: Unremarkable. No enlarged lymph nodes. Urinary bladder: Unremarkable as visualized. Reproductive: Mildly obstructing 3 mm right UVJ calculus. This is minimally more distal than was seen on 10/04/2023. Bones/joints: Unremarkable. No acute fracture. Soft tissues: Unremarkable. CT/CT kidney stone [id number] IMPRESSION: Mildly obstructing right UVJ calculus, minimally more distal than was seen previously.
[2023-10-08 06:22] LABS: Alanine Aminotransferase 15 U/L (0-33); Albumin Level 4.4 g/dL (3.5-5.2); Alkaline Phosphatase 128 U/L (35-105); Anion Gap 14.2 (5-19); Aspartate Amino Transferase 14 U/L (0-32); Blood Urea Nitrogen 9 mg/dL (6-20); Calcium 9.8 mg/dL (8.5-10.5); Carbon Dioxide 25 mmol/L (22-29); Chloride 101 mmol/L (98-107); Creatinine Clr Calc Pharmacy 125.3026; Globulin 3.6 g/dL (1.3-4.6); Glomerular Filtration Rate 95.8 mL/min (90-130); Glucose 114 mg/dL (65-115); Osmolality Calculated 284 mOsm/kg (285-295); Potassium 3.2 mmol/L (3.5-5.1); Sodium 137 mmol/L (136-145); Total Bilirubin 1.1 mg/dL (0.15-1.2)
[2023-10-08 06:24] LABS: Glucose Urine UA Norm (Normal); Protein Urine 3+ (Negative); Urine Appearance Cloudy (CLEAR); Urine Color Dark Yellow (Yellow); pH Urine 6.5 (5-7)
[2023-10-08 06:25] LABS: Add Urine Microscopic? YES; Bilirubin Urine Neg (Negative); Blood Urine 3+ (Negative); Ketones Urine 1+ (Negative); Leukocyte Esterase Urine 2+ (Negative); Nitrate Urine Positive (Negative); Urobilinogen Urine 1 mg/dL (Negative)
[2023-10-08 06:26] LABS: RBC Urine 40-50 /hpf (0-2)
[2023-10-08 06:27] LABS: Add Urine Culture? Yes; Bacteria Urine 2+ /hpf
[2023-10-08] MEDS: cefTRIAXone 1,000 MG in sodium chloride 0.9% (plus) 50 ML 100 MG IV (06:35)
--- NOTE | 2023-10-08 08:53 | DCPLANNER ---
Called and LVM for patient to call back - Needing to know urology preference-
--- NOTE | 2023-10-21 08:37 | DCPLANNER ---
Referral sent to [facility] urology-
== END 2023-10-08 07:46 | disposition home or self-care (01) ==
PROVIDERS: Emergency Medicine; Emergency Provider Family Medicine; PCP Physician Assistant
DX: N30.00 Acute cystitis without hematuria (principal); N20.0 Calculus of kidney; Z72.0 Tobacco use
CPT/HCPCS: 74176; 80053; 81001; 84703; 85025; 87040; 87086; 96374; 96375; 99285; J0696; J1885; J2270; J7030

== ENCOUNTER 2024-03-31 10:54 | Emergency (ER) | payer BC, MEDICAID, SELFPAY ==
[2024-03-31 11:21] LABS: Basophils % 0.3 %; Eosinophils # 0.2 10^3/uL (0.0-0.8); Eosinophils % 1.4 %; Hematocrit 44.3 % (36-47); Lymphocytes # 1.7 10^3/uL (0.8-4.8); Lymphocytes % 11.1 %; Mean Corpuscular HGB Conc 32.3 g/dL (30-55); Mean Corpuscular Hemoglobin 29.1 pg (27-33); Mean Platelet Volume 9.1 fL (7.4-10.4); Monocytes # 0.9 10^3/uL (0.2-0.9); Monocytes % 5.9 %; Neutrophils % 80.9 %; Nucleated Red Blood Cells % 0 %; Platelet Count 275 10^3/cmm (157-399); Red Blood Count 4.92 10^6/uL (3.85-5.65); Red Cell Distribution Width 12.5 % (12.1-15.1); White Blood Count 15.68 10^3/uL (3.29-11.43)
[2024-03-31 11:36] LABS: HCG, Serum Qual Negative (Negative)
[2024-03-31 11:47] LABS: Alanine Aminotransferase 16 U/L (0-33); Alkaline Phosphatase 116 U/L (35-105); Anion Gap 13.1 (5-19); Aspartate Amino Transferase 17 U/L (0-32); Blood Urea Nitrogen 8 mg/dL (6-20); Calcium 8.9 mg/dL (8.5-10.5); Carbon Dioxide 30 mmol/L (22-29); Chloride 95 mmol/L (98-107); Globulin 3.2 g/dL (1.3-4.6); Glomerular Filtration Rate 113.8 mL/min (90-130); Glucose 121 mg/dL (65-115); Lipase 75 U/L (13-60); Osmolality Calculated 278 mOsm/kg (285-295); Potassium 4.1 mmol/L (3.5-5.1); Sodium 134 mmol/L (136-145); Total Bilirubin 0.7 mg/dL (0.15-1.2); Total Protein 7.2 g/dL (6.6-8.7)
[2024-03-31 13:04] VITALS: BP 161/97; PULSE 84; RESP 18; TEMP 36.7; O2SAT 100
[2024-03-31 13:46] LABS: Bilirubin Urine Negative (Negative); Blood Urine Negative (Negative); Glucose Urine UA Negative (Normal); Ketones Urine Negative (Negative); Leukocyte Esterase Urine Negative (Negative); Nitrate Urine Negative (Negative); Protein Urine 1+ (Negative); Specific Gravity, Urine 1.019 (1.005-1.030); Urine Appearance Clear (CLEAR); Urine Color Yellow (Yellow); pH Urine >=9.0 (5-7)
--- NOTE | 2024-03-31 13:47 | CT_ITS ---
WS: [id number] CT ABDOMEN PELVIS TECHNIQUE: Contrast-enhanced CT of the abdomen and pelvis with coronal and sagittal reformatted image s. CLINICAL INFORMATION: vomiting COMPARISON: CT 10/08/2023 DLP: 593.[address] scans at [facility] use at least one of these dose optimization techniques: automated e xposure control; mA and/or kV adjustment per patient size (includes targeted exams where dose is matc hed to clinical indication); or iterative reconstruction. FINDINGS: Diffuse fatty infiltration of the liver. Mild hepatomegaly. Normal portal vein and splenic vein. Inci dental focal fat near the falciform ligament. Normal GE junction. Air-fluid level in the stomach. Muc osal enhancement involving the stomach and proximal duodenum can be seen with gastroduodenitis. Lung bases are well aerated. Adrenal glands are normal. Normal renal parenchyma enhancement. No hydr onephrosis. Normal spleen. Normal pancreas. Normal portal vein and splenic vein. Celiac and SMA are p atent. Tiny fat-containing umbilical hernia. Sigmoid constipation. No evidence of high-grade small or large bowel obstruction. Mild diffuse panco lonic constipation. Disc bulging worse at L3-L4 L4-L5 and L5-S1. Disc space narrowing L5-S1 with endp late degenerative changes. CT/CT abdomen pelvis w con* [id number] IMPRESSION: 1. Fluid distended stomach with air-fluid level. 2. Mucosal enhancement involving the stomach and duodenum can be seen with gas troduodenitis. 3. No evidence of small or large bowel obstruction. 4. Mild pancolonic constipation. 5. No hydronephrosis in either kidney. 6. Mild hepatomegaly with diffuse fatty infiltration of the liver.
--- NOTE | 2024-03-31 13:48 | ED_ITS ---
HPI - Nausea/Vomiting/Diarrhea 2 General: Chief complaint: Nausea/Vomiting/Diarrhea Stated complaint: NV Time Seen by Provider: 03/31/24 13:12 Source: patient Mode of arrival: ambulatory Limitations: no limitations History of Present Illness: 34-year-old female who states that she h as been having nausea vomiting for the last week. She states she recently started methadone at the methadone clinic and since when she started having the vomiting. She denies any abdominal pain she denies any fever states she is felt generally unwell though. Denies any worse improved factors has not tried any nausea medicine Associated nausea: Yes Associated symtoms: Reports nausea; Denies chest pain, dysuria or headache(s) Related Data Home Medications Medication Instructions Recorded Confirmed fluoxetine 20 mg capsule 60 mg PO DAILY 10/16/21 03/31/24 propranolol 20 mg tablet 20 mg PO BID 10/16/21 03/31/24 budesonide-formoterol HFA 160 1 puff inhalation BID 10/04/23 03/31/24 mcg-4.5 mcg/actuation aerosol inhaler (Symbicort) buspirone 5 mg tablet 5 mg PO BID 10/04/23 03/31/24 hydroxyzine HCl 25 mg tablet 25 mg PO TID PRN Anxiety 10/04/23 03/31/24 lisinopril 20 1 tab PO DAILY 10/04/23 03/31/24 mg-hydrochlorothiazide 25 mg tablet trazodone 50 mg tablet 50 mg PO BEDTIME 10/04/23 03/31/24 Previous Rx's Medication Instructions Recorded clarithromycin 500 mg tablet 500 mg PO BID 14 days #28 tabs 03/31/24 ondansetron 4 mg disintegrating 4 mg PO Q6H PRN nausea and 03/31/24 tablet vomiting #14 tabs pantoprazole 40 mg tablet,delayed 40 mg PO DAILY #60 tabs 03/31/24 release (Protonix) Allergies Allergy/AdvReac Type Severity Reaction Status Date / Time No Known Allergies Allergy Verified 10/04/23 05:41 Review of Systems 2 Const: Denies: fever(s), chills, body aches or change in appetite ENMT: Denies: throat pain or dental pain Card: Denies: chest pain Resp: Denies: dyspnea GI: Reports: nausea and vomiting; Denies: abdominal pain or diarrhea : Denies: dysuria Musc: Denies: neck pain or back pain Skin/Breast: Denies: rash Neuro: Denies: headache(s) PFSH ED 2 PFSH: Medical History No pertinent family history DDD (degenerative disc disease), lumbar Substance abuse ADHD Social History Smoking and tobacco/nicotine status: current every day tobacco/nicotine user Physical Exam 2 Const: COMMON NORMALS: no acute distress, patient oriented x3 and healthy appearing HENMT: COMMON NORMALS: normocephalic and atraumatic HEAD & SCALP: n ormocephalic and atraumatic Eye: COMMON NORMALS: conjunctivae normal CONJUNCTIVA: Yes conjunctivae normal Neck/C-Spine: COMMON NORMALS: full ROM and supple Chest: COMMONS NORMALS: normal inspection of the chest Resp: COMMON NORMALS: normal respiratory effort Cardio: COMMON NORMALS: regular rate, regular rhythm and No murmurs present (Cardio) RATE: regular rate RHYTHM: regular rhythm GI: COMMON NORMALS: Normal to inspection, nondistended, normoactive bowel sounds present, Soft to palpation, non-tender and no masses PALPATION: Yes Soft to palpation Extremity: COMMON NORMALS: normal to inspection and full ROM Neuro: COMMON NORMALS: patient oriented x3, moves all extremities and no focal motor deficits Psych: COMMON NORMALS: mental status grossly normal, Normal thought process present and cooperative THOUGHT PROCESS: Normal thought process present Skin: COMMON NORMALS: no rashes or lesions noted and no wounds GENERAL SKIN EXAM: no rashes or lesions noted Course 2 Vital Signs: Vital signs: Vital Signs Temperature 98.0 F 03/31/24 13:04 Pulse Rate 84 03/31/24 13:04 Respiratory Rate 18 03/31/24 13:04 Blood Pressure 161/97 03/31/24 13:04 Pulse Oximetry 100 03/31/24 13:04 Oxygen Delivery Me thod Room Air 03/31/24 13:04 MDM - Nausea/Vomiting/Diarrhea Medical Decision Making Patient presents here with vomiting along with some epigastric abdominal pain CT showed a possible duodenitis we will start her on Protonix clarithromycin nausea medicine we will get her follow-up with surgery she likely needs an EGD she is otherwise well-appearing here stable for discharge. Medical Records I reviewed the patient's medical records. Lab Data I reviewed the patient's lab results. 03/31/24 11:13 03/31/24 11:13 Radiology Impressions Abdomen/Pelvis CT 03/31/24 13:47 IMPRESSION: 1. Fluid distended stomach with air-fluid level. 2. Mucosal enhancement involving the stomach and duodenum can be seen with gastroduodenitis. 3. No evidence of small or large bowel obstruction. 4. Mild pancolonic constipation. 5. No hydronephrosis in either kidney. 6. Mild hepatomegaly with diffuse fatty infiltration of the liver. Laboratory Results WBC 15.68 10^3/uL (3.29-11.43) H 03/31/24 11:13 RBC 4.92 10^6/uL (3.85-5.65) 03/31/24 11:13 Hgb 14.30 g/dL (11.27-16.99) 03/31/24 11:13 Hct 44.3 % (36-47) 03/31/24 11:13 MCV 90.0 fl (85-98) 03/31/24 11:13 MCH 29.1 pg (27-33) 03/31/24 11:13 MCHC 32.3 g/dL (30-55) 03/31/24 11:13 RDW 12.5 % (12.1-15.1) 03/31/24 11:13 Plt Count 275 10^3/cmm (157-399) 03/31/24 11:13 MPV 9.1 fL (7.4-10.4) 03/31/24 11:13 Neut % (Auto) 80.9 % 03/31/24 11:13 Lymph % (Auto) 11.1 % 03/31/24 11:13 [place] % (Auto) 5.9 % 03/31/24 11:13 Eos % (Auto) 1.4 % 03/31/24 11:13 Baso % (Auto) 0.3 % 03/31/24 11:13 Neut # (Auto) 12.70 10^3/uL (1.8-7.7) H 03/31/24 11:13 Lymph # (Auto) 1.7 10^3/uL (0.8-4.8) 03/31/24 11:13 [place] # (Auto) 0.9 10^3/uL (0.2-0.9) 03/31/24 11:13 Eos # (Auto) 0.2 10^3/uL (0.0-0.8) 03/31/24 11:13 Baso # (Auto) 0.0 10^3/uL (0.0-0.1) 03/31/24 11:13 Nucleated RBC % (auto) 0 % 03/31/24 11:13 Nucleated RBCs # 0.0 /100WBC 03/31/24 11:13 Sodium 134 mmol/L (136-145) L 03/31/24 11:13 Potassium 4.1 mmol/L (3.5-5.1) 03/31/24 11:13 Chloride 95 mmol/L (98-107) L 03/31/24 11:13 Carbon Dioxide 30 mmol/L (22-29) H 03/31/24 11:13 Anion Gap 13.1 (5-19) 03/31/24 11:13 BUN 8 mg/dL (6-20) 03/31/24 11:13 Creatinine 0.6 mg/dL (0.5-0.9) 03/31/24 11:13 GFR Calculation 113.8 mL/min (90-130) 03/31/24 11:13 Glucose 121 mg/dL (65-115) H 03/31/24 11:13 Calculated Osmolality 278 mOsm/kg (285-295) L 03/31/24 11:13 Calcium 8.9 mg/dL (8.5-10.5) 03/31/24 11:13 Total Bilirubin 0.7 mg/dL (0.15-1.2) 03/31/24 11:13 AST 17 U/L (0-32) 03/31/24 11:13 ALT 16 U/L (0-33) 03/31/24 11:13 Alkaline Phosphatase 116 U/L (35-105) H 03/31/24 11:13 Total Protein 7.2 g/dL (6.6-8.7) 03/31/24 11:13 Albumin 4.0 g/dL (3.5-5.2) 03/31/24 11:13 Globulin 3.2 g/dL (1.3-4.6) 03/31/24 11:13 Lipase 75 U/L (13-60) H 03/31/24 11:13 HCG, Qual Negative (Negative) 03/31/24 11:13 Urine Color Yellow (Yellow) 03/31/24 13:39 Urine Appearance Clear (CLEAR) 03/31/24 13:39 Urine pH >=9.0 (5-7) A 03/31/24 13:39 Ur Specific [place] 1.019 (1.005-1.030) 03/31/24 13:39 Urine Protein 1+ (Negative) A 03/31/24 13:39 Urine Glucose (UA) Negative (Normal) 03/31/24 13:39 Urine Ketones Negative (Negative) 03/31/24 13:39 Urine Blood Negative (Negative) 03/31/24 13:39 Urine Nitrate Negative (Negative) 03/31/24 13:39 Urine Bilirubin Negative (Negative) 03/31/24 13:39 Urine Urobilinogen 1.0 mg/dL (Negative) 03/31/24 13:39 Ur Leukocyte Esterase Negative (Negative) 03/31/24 13:39 Urine RBC 0-4 /hpf (0-2) H 03/31/24 13:39 Urine WBC 5-10 /hpf (0-5) H 03/31/24 13:39 Ur Squamous Epith Cells 10-15 /hpf (0-5) H 03/31/24 13:39 Amorphous Sediment Not Reportable 03/31/24 13:39 Urine Bacteria 3+ /hpf (NONE) H 03/31/24 13:39 Hyaline Casts [place] 03/31/24 13:39 All radiology interpretation(s) finalized by discharge Discharge Plan Discharge Patient Disposition: Home Clinical Impression: Abdominal pain, Vomiting Condition: Stable Prescriptions: New Protonix 40 mg tablet,delayed release (DR/EC) 40 mg PO DAILY Qty: 60 0RF ondansetron 4 mg tablet,disintegrating 4 mg PO Q6H PRN (Reason: nausea and vomiting) Qty: 14 0RF clarithromycin 500 mg tablet 500 mg PO BID 14 Days Qty: 28 0RF No Action fluoxetine 20 mg capsule 60 mg PO DAILY propranolol 20 mg tablet 20 mg PO BID buspirone 5 mg tablet 5 mg PO BID trazodone 50 mg tablet 50 mg PO BEDTIME lisinopril-hydrochlorothiazide 20-25 mg tablet 1 tab PO DAILY hydroxyzine HCl 25 mg tablet 25 mg PO TID PRN (Reason: Anxiety) budesonide-formoterol [Symbicort] 160-4.5 mcg/actuation HFA aerosol inhaler 1 puff INHALATION BID Discharge Orders: Discharge ED (Routine); Ordered 03/31/24 Ordered By: Adriana Antoine Referrals: Hector Urban DO [Physician] - 4-7 days Betina Lemon PA [Primary Care Provider] - 4-7 days Discharge Diet: Advance as tolerated Discharge Activity: Resume usual activity Patient Instructions: Acute Nausea and Vomiting (ED), Abdominal Pain (ED) Coding Level of Care Code ED Military Lawyer for Adrianna Grier
[2024-03-31 13:51] LABS: Add Urine Microscopic? YES
[2024-03-31] MEDS: sodium chloride 0.9% 1,000 ML 999 ML IV (13:58)
[2024-03-31] MEDS: iohexol 350 mg/mL 500 mL Btl (per mL) IV (14:13)
[2024-03-31 14:19] LABS: UA Slide Review UA Slide Review Perf
[2024-03-31 14:22] LABS: Bacteria Urine 3+ /hpf; RBC Urine 0-4 /hpf (0-2); UA Manual Slide Review YES
[2024-03-31 15:05] LABS: Covid PCR NEGATIVE (Negative); Influenza A NEGATIVE (Negative); Influenza B NEGATIVE (Negative); Respiratory Syncytial Virus Ce NEGATIVE (Negative)
[2024-03-31 15:12] VITALS: BP 158/83; PULSE 73; O2SAT 98
--- NOTE | 2024-03-31 17:58 | DCPLANNER ---
messaged gen surg for er f/u
== END 2024-03-31 15:13 | disposition home or self-care (01) ==
PROVIDERS: Emergency Provider Emergency Medicine; PCP Physician Assistant
DX: R11.2 Nausea with vomiting, unspecified (principal); R10.13 Epigastric pain
CPT/HCPCS: 0241U; 74177; 80053; 81001; 83690; 84703; 85025; 99285; J7030

== ENCOUNTER 2024-04-01 08:58 | Emergency (ER) | payer BC, MEDICAID, SELFPAY ==
[2024-04-01 09:06] VITALS: BP 133/79; PULSE 97; RESP 16; TEMP 36.8; O2SAT 95; BMI 26.6
[2024-04-01 09:36] VITALS: BP 131/73; PULSE 87; RESP 16; TEMP 37.1; O2SAT 97
--- NOTE | 2024-04-01 10:07 | ED_ITS ---
HPI - Abdominal Pain 2 General: Chief Complaint: Abdominal Pain Stated Complaint: urinating blood Time Seen by Provider: 04/01/24 09:20 History of Present Illness: 34-year-old female presents emergency ro om complaining of dysphagia and swallowing. No fever sweats or chills no direct trauma or blow to the neck. She is also complaining of blood in her urine. She states she feels like she had period cramps her last period was about a week and 1/2 to 2 weeks ago do not having any further vaginal bleeding. She has noticed her urine has been dark and has had some strands of blood in it the sample that she is provided at the bedside and note that is well visually inspecting. No history of kidney stones she denies dysuria urgency or frequency. Patient was seen yesterday in the emergency room had a CT which showed gastroduodenitis. She was started on pantoprazole. Associated Symptoms: Reports hematuria; Denies chills, dysuria and fever(s) Related Data Date of Last Menstrual Period: 03/18/24 Home Medications Medication Instructions Recorded Confirmed fluoxetine 20 mg capsule 60 mg PO DAILY 10/16/21 04/01/24 propranolol 20 mg tablet 20 mg PO BID 10/16/21 04/01/24 budesonide-formoterol HFA 160 1 puff inhalation BID 10/04/23 04/01/24 mcg-4.5 mcg/actuation aerosol inhaler (Symbicort) buspirone 5 mg tablet 5 mg PO BID 10/04/23 04/01/24 hydroxyzine HCl 25 mg tablet 25 mg PO TID PRN Anxiety 10/04/23 04/01/24 lisinopril 20 1 tab PO DAILY 10/04/23 04/01/24 mg-hydrochlorothiazide 25 mg tablet trazodone 50 mg tablet 50 mg PO BEDTIME 10/04/23 04/01/24 Previous Rx's Medication Instructions Recorded clarithromycin 500 mg tablet 500 mg PO BID 14 days #28 tabs 03/31/24 ondansetron 4 mg disintegrating 4 mg PO Q6H PRN nausea and 03/31/24 tablet vomiting #14 tabs pantoprazole 40 mg tablet,delayed 40 mg PO DAILY #60 tabs 03/31/24 release (Protonix) azithromycin 250 mg tablet See Rx Instructions PO .COMPLEX #6 04/01/24 (Zithromax Z-Pedro) tabs ciprofloxacin HCl 250 mg tablet 250 mg PO BID #10 tabs 04/01/24 Allergies Allergy/AdvReac Type Severity Reaction Status Date / Time No Known Allergies Allergy Verified 10/04/23 05:41 Review of Systems 2 Const: Denies: fever(s) or chills Card: Denies: chest pain Resp: Denies: dyspnea GI: Denies: abdominal pain : Reports: hematuria; Denies: dysuria, urinary frequency or urinary urgency Musc: Reports: neck pain; Denies: back pain Skin/Breast: Denies: rash PFSH ED 2 PFSH: Medical History No pertinent family history DDD (degenerative disc disease), lumbar Substance abuse ADHD Social History Smoking and tobacco/nicotine status: current every day tobacco/nicotine user Female Reproductive History: Date of last menstrual period: 03/18/24 Physical Exam 2 Const: COMMON NORMALS: no acute distress GENERAL APPEARANCE: cooperative and comfortable ORIENTATION/CONSCIOUSNESS: Yes awake, Yes oriented to person, Yes oriented to place and Yes oriented to time HENMT: COMMON NORMALS: normocephalic, atraumatic and hearing grossly normal bilaterally HEAD & SCALP: normocephalic and atraumatic Lymph: LYMPHATIC: lymphadenopathy (Tender cervical lymphadenopathy) Resp: COMMON NORMALS: normal respiratory effort, No retractions, No use of accessory muscles and clear to auscultation bilaterally AUSCULTATION: clear to auscultation bilaterally Cardio: COMMON NORMALS: regular rate, regular rhythm and No murmurs present (Cardio) RATE: regular rate RHYTHM: regular rhythm GI: COMMON NORMALS: Soft to palpation and No hepatosplenomegaly present A USCULTATION: Yes normoactive bowel sounds PALPATION: Yes Soft to palpation, No Tenderness to palpation present (GI), No Guarding due to palpation present (GI) and Yes No hepatosplenomegaly present : BLADDER/KIDNEY EXAM: No CVA tenderness Back/Pelvis: GENERAL BACK: No CVA tenderness Extremity: COMMON NORMALS: normal to inspection, capillary refill normal, no clubbing, cyanosis or edema, no calf tenderness and no pedal edema OTHER: Superficial scratches on the hands bilaterally no sign of acute abscess no localized erythema Neuro: SENSORIUM/ORIENTATION: Yes oriented to person, Yes oriented to place and Yes oriented to time Skin: COMMON NORMALS: no rashes or lesions noted GENERAL SKIN EXAM: no rashes or lesions noted Course 2 Vital Signs: Vital signs: Vital Signs Temperature 98.7 F 04/01/24 09:36 Pulse Rate 86 04/01/24 13:50 Respiratory Rate 16 04/01/24 13:50 Blood Pressure 106/46 04/01/24 13:50 Pulse Oximetry 98 04/01/24 13:50 Oxygen Delivery Me thod Room Air 04/01/24 12:39 MDM - Abdominal Pain Medical Decision Making Patient does have some scratches on her hands bilaterally. Discussing whether this comes from playing with a kitten. I suspect lymphadenopathy were seen on the CT and her neck is due to cat scratch disease. Will start her on Zithromax. Additionally we will put her on Cipro to cover for urinary pathogens. There is no sign of stones or bladder masses or hydronephrosis on the CT which does have significant and blood in the urine on examination of the urine at the bedside there is small clots with in the urine sample but there is not any significant juan hematuria. She should follow-up with her primary care doctor within the week if her hematuria does not resolve she may need to see urology at some point. Medical Records I reviewed the patient's medical records. Lab Data I reviewed the patient's lab results. 04/01/24 09:56 04/01/24 09:56 Labs/Radiology: Radiology Impressions Abdomen/Pelvis CT 04/01/24 10:55 IMPRESSION: 1. No obstructing renal or ureteral calculi. No hydronephrosis in either kidney. 2. Otherwise no significant changes compared to previous. Neck CT 04/01/24 10:55 IMPRESSION: 1. Diffuse bulky heterogeneous enhancing cervical lymphadenopathy described above worse in the upper cervical chains. This may be infectious or inflammatory in etiology however lymphoma not excluded. Recommend correlation with clinical history and follow-up to resolution. 2. No evidence of supraglottic or glottic mass. Airway is patent. Notified Leo Watkins DO at 04/01/2024 12:30 PM. Laboratory Results WBC 19.79 10^3/uL (3.29-11.43) H 04/01/24 09:56 RBC 4.41 10^6/uL (3.85-5.65) 04/01/24 09:56 Hgb 12.90 g/dL (11.27-16.99) 04/01/24 09:56 Hct 38.4 % (36-47) 04/01/24 09:56 MCV 87.1 fl (85-98) 04/01/24 09:56 MCH 29.3 pg (27-33) 04/01/24 09:56 MCHC 33.6 g/dL (30-55) 04/01/24 09:56 RDW 12.8 % (12.1-15.1) 04/01/24 09:56 Plt Count 236 10^3/cmm (157-399) 04/01/24 09:56 MPV 9.4 fL (7.4-10.4) 04/01/24 09:56 Neut % (Auto) 81.5 % 04/01/24 09:56 Lymph % (Auto) 8.6 % 04/01/24 09:56 [place] % (Auto) 8.6 % 04/01/24 09:56 Eos % (Auto) 0.2 % 04/01/24 09:56 Baso % (Auto) 0.3 % 04/01/24 09:56 Neut # (Auto) 16.12 10^3/uL (1.8-7.7) H 04/01/24 09:56 Lymph # (Auto) 1.7 10^3/uL (0.8-4.8) 04/01/24 09:56 [place] # (Auto) 1.7 10^3/uL (0.2-0.9) H 04/01/24 09:56 Eos # (Auto) 0.0 10^3/uL (0.0-0.8) 04/01/24 09:56 Baso # (Auto) 0.1 10^3/uL (0.0-0.1) 04/01/24 09:56 Nucleated RBC % (auto) 0 % 04/01/24 09:56 Nucleated RBCs # 0.0 /100WBC 04/01/24 09:56 Sodium 133 mmol/L (136-145) L 04/01/24 09:56 Potassium 3.9 mmol/L (3.5-5.1) 04/01/24 09:56 Chloride 99 mmol/L (98-107) 04/01/24 09:56 Carbon Dioxide 25 mmol/L (22-29) 04/01/24 09:56 Anion Gap 12.9 (5-19) 04/01/24 09:56 BUN 6 mg/dL (6-20) 04/01/24 09:56 Creatinine 0.5 mg/dL (0.5-0.9) 04/01/24 09:56 GFR Calculation 140.4 mL/min (90-130) H 04/01/24 09:56 Glucose 129 mg/dL (65-115) H 04/01/24 09:56 Calculated Osmolality 275 mOsm/kg (285-295) L 04/01/24 09:56 Calcium 8.6 mg/dL (8.5-10.5) 04/01/24 09:56 Total Bilirubin 0.6 mg/dL (0.15-1.2) 04/01/24 09:56 AST 21 U/L (0-32) 04/01/24 09:56 ALT 17 U/L (0-33) 04/01/24 09:56 Alkaline Phosphatase 108 U/L (35-105) H 04/01/24 09:56 Total Protein 6.6 g/dL (6.6-8.7) 04/01/24 09:56 Albumin 3.6 g/dL (3.5-5.2) 04/01/24 09:56 Globulin 3.0 g/dL (1.3-4.6) 04/01/24 09:56 HCG, Qual Negative (Negative) 04/01/24 09:56 Urine Color Dark yellow (Yellow) A 04/01/24 09:56 Urine Appearance Cloudy (CLEAR) A 04/01/24 09:56 Urine pH 7.5 (5-7) 04/01/24 09:56 Ur Specific [place] 1.017 (1.005-1.030) 04/01/24 09:56 Urine Protein 1+ (Negative) A 04/01/24 09:56 Urine Glucose (UA) Negative (Normal) 04/01/24 09:56 Urine Ketones Negative (Negative) 04/01/24 09:56 Urine Blood 3+ (Negative) A 04/01/24 09:56 Urine Nitrate Negative (Negative) 04/01/24 09:56 Urine Bilirubin Negative (Negative) 04/01/24 09:56 Urine Urobilinogen 1.0 mg/dL (Negative) 04/01/24 09:56 Ur Leukocyte Esterase Negative (Negative) 04/01/24 09:56 Urine RBC >100 /hpf (0-2) H 04/01/24 09:56 Urine WBC 0-5 /hpf (0-5) 04/01/24 09:56 Ur Squamous Epith Cells 11-20 /hpf (0-5) 04/01/24 09:56 Amorphous Sediment Not Reportable 04/01/24 09:56 Urine Bacteria Trace /hpf (NONE) 04/01/24 09:56 Hyaline Casts 1.21 /lpf 04/01/24 09:56 Monoscreen Negative (Negative) 04/01/24 09:56 Group A Strep Rapid Negative (Negative) 04/01/24 10:21 All radiology interpretation(s) finalized by discharge Discharge Plan Discharge Patient Disposition: Home Clinical Impression: Cat scratch, Hematuria Condition: Stable Prescriptions: New Zithromax Z-Pedro 250 mg tablet See Rx Instructions .ROUTE .COMPLEX Qty: 6 0RF Rx Instructions: For 250 mg dose pack: take 500 mg today (day 1), then 250 mg for 4 days (days 2-5) ciprofloxacin HCl 250 mg tablet 250 mg PO BID Qty: 10 0RF No Action fluoxetine 20 mg capsule 60 mg PO DAILY propranolol 20 mg tablet 20 mg PO BID buspirone 5 mg tablet 5 mg PO BID trazodone 50 mg tablet 50 mg PO BEDTIME lisinopril-hydrochlorothiazide 20-25 mg tablet 1 tab PO DAILY hydroxyzine HCl 25 mg tablet 25 mg PO TID PRN (Reason: Anxiety) budesonide-formoterol [Symbicort] 160-4.5 mcg/actuation HFA aerosol inhaler 1 puff INHALATION BID pantoprazole [Protonix] 40 mg tablet,delayed release (DR/EC) 40 mg PO DAILY Qty: 60 0RF ondansetron 4 mg tablet,disintegrating 4 mg PO Q6H PRN (Reason: nausea and vomiting) Qty: 14 0RF clarithromycin 500 mg tablet 500 mg PO BID 14 Days Qty: 28 0RF Discharge Orders: Discharge ED (Routine); Ordered 04/01/24 Ordered By: Leo Watkins Referrals: Betina Lemon PA [Primary Care Provider] - Discharge Diet: Usual diet Discharge Activity: Resume usual activity Patient Instructions: Cat Scratch Disease (ED), Opioid Safety, Pain Management Activity Restrictions/Additional Instructions: Thank you for choosing [facility] for your healthcare needs today. It is very important that you follow up as instructed or that you return to the Emergency Department should you have concerns or if your condition changes or worsens in any way. You were seen today with complaints of not feeling well and pain in your neck. On the scan there is significant lymph nodes. This is likely due to cat scratch disease from playing with the kitten. Additionally noted to have a significant blood in the urine and is no significant findings on the CT suggestive of a renal stone or pyelonephritis no was blood in the urine but no obvious signs of infection. We have given you antibiotics to cover both of these conditions but you should follow-up with your primary care doctor she. Worsening return to the emergency room. Coding Level of Care Code ED Radio Station Engineer for Adrianna Grier
[2024-04-01 10:10] LABS: Basophils # 0.1 10^3/uL (0.0-0.1); Basophils % 0.3 %; Eosinophils % 0.2 %; Hematocrit 38.4 % (36-47); Lymphocytes # 1.7 10^3/uL (0.8-4.8); Lymphocytes % 8.6 %; Mean Corpuscular HGB Conc 33.6 g/dL (30-55); Mean Corpuscular Hemoglobin 29.3 pg (27-33); Mean Corpuscular Volume 87.1 fl (85-98); Mean Platelet Volume 9.4 fL (7.4-10.4); Monocytes # 1.7 10^3/uL (0.2-0.9); Monocytes % 8.6 %; Neutrophils # 16.12 10^3/uL (1.8-7.7); Neutrophils % 81.5 %; Nucleated Red Blood Cells % 0 %; Platelet Count 236 10^3/cmm (157-399); Red Blood Count 4.41 10^6/uL (3.85-5.65); Red Cell Distribution Width 12.8 % (12.1-15.1); White Blood Count 19.79 10^3/uL (3.29-11.43)
[2024-04-01] MEDS: sodium chloride 0.9% 1,000 ML 999 ML IV (10:15)
[2024-04-01] MEDS: ondansetron 2 mg/ML SDV 2 mL 4 MG IVP (10:15)
[2024-04-01 10:20] LABS: Bilirubin Urine Negative (Negative); Blood Urine 3+ (Negative); Glucose Urine UA Negative (Normal); Ketones Urine Negative (Negative); Leukocyte Esterase Urine Negative (Negative); Nitrate Urine Negative (Negative); Protein Urine 1+ (Negative); Specific Gravity, Urine 1.017 (1.005-1.030); Urine Appearance Cloudy (CLEAR); pH Urine 7.5 (5-7)
[2024-04-01 10:22] LABS: HCG, Serum Qual Negative (Negative)
[2024-04-01 10:25] LABS: Add Urine Microscopic? YES; Bacteria Urine Trace /hpf; Hyaline Casts Urine 1.21 /lpf; RBC Urine >100 /hpf (0-2); WBC Urine 0-5 /hpf (0-5)
[2024-04-01 10:27] LABS: Alanine Aminotransferase 17 U/L (0-33); Albumin Level 3.6 g/dL (3.5-5.2); Alkaline Phosphatase 108 U/L (35-105); Anion Gap 12.9 (5-19); Aspartate Amino Transferase 21 U/L (0-32); Blood Urea Nitrogen 6 mg/dL (6-20); Calcium 8.6 mg/dL (8.5-10.5); Carbon Dioxide 25 mmol/L (22-29); Chloride 99 mmol/L (98-107); Creatinine Clr Calc Pharmacy 168.0984; Glomerular Filtration Rate 140.4 mL/min (90-130); Glucose 129 mg/dL (65-115); Osmolality Calculated 275 mOsm/kg (285-295); Potassium 3.9 mmol/L (3.5-5.1); Sodium 133 mmol/L (136-145); Total Bilirubin 0.6 mg/dL (0.15-1.2); Total Protein 6.6 g/dL (6.6-8.7)
[2024-04-01 10:33] VITALS: BP 127/59; PULSE 81; RESP 16; O2SAT 96
[2024-04-01 10:40] LABS: Urine Color Dark Yellow (Yellow)
[2024-04-01 10:41] LABS: Add Urine Culture? No
--- NOTE | 2024-04-01 10:55 | CT_ITS ---
WS: [id number] CT ABDOMEN PELVIS TECHNIQUE: Noncontrast CT of the abdomen and pelvis with coronal and sagittal reformatted images. CLINICAL INFORMATION: flank pain COMPARISON: CT 03/31/2024 DLP: 573.[address] scans at [facility] use at least one of these dose optimization techniques: automated e xposure control; mA and/or kV adjustment per patient size (includes targeted exams where dose is matc hed to clinical indication); or iterative reconstruction. FINDINGS: Hepatomegaly. Noncontrast spleen appears normal. Tiny esophageal hiatal hernia. Mild fluid distention of the stomach improved compared to previous. Lung bases are well aerated. Adrenal glands are normal . Noncontrast pancreas appears normal. Normal caliber abdominal aorta. Adrenal glands are normal. No hydronephrosis in either kidney. No obstructing renal or ureteral calcu li. Mild pancolonic constipation similar to previous. Multi follicular ovaries bilaterally. Disc space na rrowing worse at L5-S1. Endplate degenerative changes. Normal appendix in the RIGHT lower quadrant. N o evidence of acute appendicitis. Sclerotic changes about both sacroiliac joints likely degenerative. CT/CT kidney stone [id number] IMPRESSION: 1. No obstructing renal or ureteral calculi. No hydronephrosis in either kidne y. 2. Otherwise no significant changes compared to previous.
--- NOTE | 2024-04-01 10:55 | CT_ITS ---
WS: [id number] CT NECK TECHNIQUE: Contrast-enhanced CT of the neck with coronal and sagittal reformatted images. CLINICAL INFORMATION: neck pain dysphagia COMPARISON: None. DLP: 349.[address] scans at [facility] use at least one of these dose optimization techniques: automated e xposure control; mA and/or kV adjustment per patient size (includes targeted exams where dose is matc hed to clinical indication); or iterative reconstruction. FINDINGS: Numerous large heterogeneously enhancing cervical lymph nodes throughout the neck symmetric in appear ance bilaterally. This involves both cervical chains diffusely. Prominent submandibular and posterior triangle lymph nodes. A few prominent supraclavicular lymph nodes LEFT greater than RIGHT. Largest l ymph nodes in the upper cervical chains with heterogeneous enhancement measure 1.5 cm. Normal posterior nasopharynx. [place] tonsils appear within normal limits. Normal pharyngeal mucosal enhancement. No evidence of supraglottic or glottic mass. Normal subglottic airway. Thyroid gland is normal. Normal caliber thoracic aorta. Lung apices are well aerated. Partially visualized intracranial contents appear normal. Mild mucosal thickening in the ethmoid air cells. CT/CT neck w con* [id number] IMPRESSION: 1. Diffuse bulky heterogeneous enhancing cervical lymphadenopathy described ab ove worse in the upper cervical chains. This may be infectious or inflammatory in etiology however lymphoma not excluded. Recommend correlation with clinical history and follow-up to resolution. 2. No evidence of supraglottic or glottic mass. Airway is patent. Notified Leo Watkins DO at 04/01/2024 12:30 PM.
[2024-04-01 11:03] LABS: Rapid Strep A Test Negative (Negative)
[2024-04-01 11:09] VITALS: BP 117/64; PULSE 67; RESP 16; O2SAT 95
[2024-04-01] MEDS: iohexol 350 mg/mL 500 mL Btl (per mL) IV (11:54)
[2024-04-01 12:39] VITALS: BP 142/75; PULSE 97; RESP 16; O2SAT 100
[2024-04-01 12:47] LABS: Monoscreen Negative (Negative)
[2024-04-01] MEDS: cefTRIAXone 1,000 mg SDV 1000 MG IVP (13:34)
[2024-04-01] MEDS: dexamethasone 10 mg/mL INJ IM (13:34)
[2024-04-01 13:50] VITALS: BP 106/46; PULSE 86; RESP 16; O2SAT 98
== END 2024-04-01 13:55 | disposition home or self-care (01) ==
PROVIDERS: Emergency Provider Family Medicine; PCP Physician Assistant
DX: S60.512A Abrasion of left hand, initial encounter (principal); S60.511A Abrasion of right hand, initial encounter; R59.0 Localized enlarged lymph nodes; R13.10 Dysphagia, unspecified; R31.9 Hematuria, unspecified; W55.03XA Scratched by cat, initial encounter
CPT/HCPCS: 70491; 74176; 80053; 81001; 84703; 85025; 86308; 87081; 87880; 96372; 96374; 96375; 99285; J0696; J1100; J2405; J7030

== ENCOUNTER 2024-07-29 09:43 | Emergency (ER) | payer BC, MEDICAID, SELFPAY ==
[2024-07-29 09:44] VITALS: PULSE 107; RESP 22; TEMP 36.4; O2SAT 100; BMI 27.3
--- NOTE | 2024-07-29 10:00 | W.ED.NAVMDI ---
HPI - Nausea/Vomiting/Diarrhea General: Chief complaint: Nausea/Vomiting/Diarrhea Stated complaint: n/v Time Seen by Provider: 07/29/24 09:52 History of Present Illness: 34-year-old female presents with abdominal pain in the upper abdomen with nausea and vomiting. She reports been going on for about a week. That she cannot keep eating down. Pain started out in the epigastric region and now radiates bilaterally. She was brought in via EMS and received Zofran and route. Associated nausea: Yes Associated symtoms: Reports nausea; Denies anxiety, chest pain or headache(s) Related Data Home Medications Medication Instructions Recorded Confirmed fluoxetine 20 mg capsule 60 mg PO DAILY 10/16/21 04/01/24 propranolol 20 mg tablet 20 mg PO BID 10/16/21 04/01/24 buspirone 5 mg tablet 5 mg PO BID 10/04/23 04/01/24 hydroxyzine HCl 25 mg tablet 25 mg PO TID PRN Anxiety 10/04/23 04/01/24 trazodone 50 mg tablet 50 mg PO BEDTIME 10/04/23 04/01/24 Previous Rx's Medication Instructions Recorded pantoprazole 40 mg tablet,delayed 40 mg PO DAILY #60 tabs 03/31/24 release (Protonix) Allergies Allergy/AdvReac Type Severity Reaction Status Date / Time No Known Allergies Allergy Verified 10/04/23 05:41 Review of Systems Const: Denies: fever(s) or chills Card: Denies: chest pain Resp: Denies: dyspnea or productive cough GI: Reports: abdominal pain, nausea and vomiting : Denies: flank pain Neuro: Denies: headache(s) Psych: Denies: anxiety or depression PFS ED PFSH: Medical History No pertinent family history DDD (degenerative disc disease), lumbar Substance abuse ADHD Social History Smoking and tobacco/nicotine status: current every day tobacco/nicotine user Physical Exam Const: COMMON NORMALS: patient oriented x3 OTHER: Not feeling well Resp: COMMON NORMALS: normal respiratory effort, No retractions and clear to auscultation bilaterally EFFORT & INSPECTION: Yes able to speak in complete sentences AUSCULTATION: clear to auscultation bilaterally Cardio: COMMON NORMALS: regular rate and regular rhythm RATE: regular rate RHYTHM: regular rhythm GI: PALPATION: Yes Tenderness to palpation present (GI) (Epigastric) Details: LUQ, RUQ and other Neuro: COMMON NORMALS: patient oriented x3, CN's II-XII intact bilaterally and moves all extremities Psych: COMMON NORMALS: mental status grossly normal, Normal thought process present, cooperative and normal affect THOUGHT PROCESS: Normal thought process present Course Vital Signs: Vital signs: Vital Signs Temperature 97.5 F L 07/29/24 09:44 Pulse Rate 107 H 07/29/24 09:44 Respiratory Rate 22 H 07/29/24 09:44 Pulse Oximetry 100 07/29/24 09:44 Oxygen Delivery Me thod Room Air 07/29/24 09:44 Discharge Plan Discharge Condition: Stable Prescriptions: No Action fluoxetine 20 mg capsule 60 mg PO DAILY propranolol 20 mg tablet 20 mg PO BID buspirone 5 mg tablet 5 mg PO BID trazodone 50 mg tablet 50 mg PO BEDTIME lisinopril-hydrochlorothiazide 20-25 mg tablet 1 tab PO DAILY hydroxyzine HCl 25 mg tablet 25 mg PO TID PRN (Reason: Anxiety) budesonide-formoterol [Symbicort] 160-4.5 mcg/actuation HFA aerosol inhaler 1 puff INHALATION BID Zithromax Z-Pedro 250 mg tablet See Rx Instructions .ROUTE .COMPLEX Qty: 6 0RF Rx Instructions: For 250 mg dose pack: take 500 mg today (day 1), then 250 mg for 4 days (days 2-5) ciprofloxacin HCl 250 mg tablet 250 mg PO BID Qty: 10 0RF pantoprazole [Protonix] 40 mg tablet,delayed release (DR/EC) 40 mg PO DAILY Qty: 60 0RF ondansetron 4 mg tablet,disintegrating 4 mg PO Q6H PRN (Reason: nausea and vomiting) Qty: 14 0RF Referrals: Betina Lemon PA [Primary Care Provider] - Coding Level of Care Code ED Security Operations Manager for Adrianna Grier
[2024-07-29 10:09] LABS: Basophils # 0.1 10^3/uL (0.0-0.1); Basophils % 0.3 %; Eosinophils # 0.3 10^3/uL (0.0-0.8); Eosinophils % 1.4 %; Hematocrit 49.5 % (36-47); Lymphocytes # 2.3 10^3/uL (0.8-4.8); Lymphocytes % 11.6 %; Mean Corpuscular HGB Conc 34.1 g/dL (30-55); Mean Corpuscular Hemoglobin 28.4 pg (27-33); Mean Corpuscular Volume 83.2 fl (85-98); Mean Platelet Volume 10.2 fL (7.4-10.4); Monocytes % 4.9 %; Neutrophils # 16.16 10^3/uL (1.8-7.7); Neutrophils % 81.3 %; Nucleated Red Blood Cells % 0 %; Platelet Count 330 10^3/cmm (157-399); Red Blood Count 5.95 10^6/uL (3.85-5.65); Red Cell Distribution Width 13.7 % (12.1-15.1); White Blood Count 19.87 10^3/uL (3.29-11.43)
[2024-07-29] MEDS: sodium chloride 0.9% 1,000 ML 999 ML IV (10:15)
[2024-07-29] MEDS: diphenhydrAMINE 50 mg/mL SDV 1mL IVP (10:15)
[2024-07-29] MEDS: metoclopramide 5 mg/mL SDV 2 mL IVP (10:15)
[2024-07-29 10:19] LABS: Alanine Aminotransferase 18 U/L (0-33); Albumin Level 4.5 g/dL (3.5-5.2); Alkaline Phosphatase 157 U/L (35-105); Blood Urea Nitrogen 12 mg/dL (6-20); Calcium 9.6 mg/dL (8.5-10.5); Carbon Dioxide 22 mmol/L (22-29); Chloride 101 mmol/L (98-107); Creatinine Clr Calc Pharmacy 141.9563; Globulin 3.1 g/dL (1.3-4.6); Glomerular Filtration Rate 113.8 mL/min (90-130); Glucose 157 mg/dL (65-115); Lipase 37 U/L (13-60); Magnesium 2.1 mg/dL (1.7-2.3); Osmolality Calculated 291 mOsm/kg (285-295); Sodium 139 mmol/L (136-145); Total Bilirubin 1.7 mg/dL (0.15-1.2); Total Protein 7.6 g/dL (6.6-8.7)
[2024-07-29 10:21] LABS: Anion Gap 19.7 (5-19); Aspartate Amino Transferase 15 U/L (0-32); Potassium 3.7 mmol/L (3.5-5.1)
[2024-07-29] MEDS: ketorolac 30 mg/mL INJ 15 MG IVP (10:35)
[2024-07-29] MEDS: famotidine 20 mg/2 mL INJ 40 MG IVP (11:16)
[2024-07-29 11:23] LABS: Covid PCR NEGATIVE (Negative); Influenza A NEGATIVE (Negative); Influenza B NEGATIVE (Negative); Respiratory Syncytial Virus Ce NEGATIVE (Negative)
--- NOTE | 2024-07-29 11:30 | ECG_ITS ---
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 Measurements Intervals [place] Rate: 57 P: 64 [place]: 133 QRS: 75 QRSD: 93 T: 81 QT: 452 QTc: 441 Interpretive Statements SINUS BRADYCARDIA Compared to ECG 05/08/2020 11:41:59 Sinus rhythm no longer present Electronically Signed On 07-30-2024 09:03:01 EGG PASTEURIZER by Satinder Bojorquez M.D. [email or web address]
[2024-07-29] MEDS: acetaminophen 1,000 MG/100 ML PIGGYBACK 400 MG IV (11:44)
--- NOTE | 2024-07-29 12:18 | CT_ITS ---
WS: [id number] CT ABDOMEN AND PELVIS WITH CONTRAST HISTORY: abd pain, n/v elevated wbc TECHNIQUE: Imaging performed of the abdomen and pelvis with IV contrast. Single phase imaging of the abdomen. Coronal and sagittal reformats are submitted. All CT scans at [facility] use at [address] one of these dose optimization techniques: automated exposure control; mA and/or kV adjustment per patient size (includes targeted exams where dose is matched to clinical indication); or iterative re construction. IV CONTRAST: Omnipaque 350; 100 mL IV. Oral contrast: No DLP: 500.78 mGy.cm COMPARISON: 04/01/2024 Lower thorax: Lung bases are clear. Heart is normal size. Small hiatal hernia. Liver/biliary system: Normal size liver. Focal fatty sparing along the falciform ligament. No intrahe patic bile duct dilatation. Normal portal vein. Gallbladder: Normal. No gallstones or wall thickening. No pericholecystic fluid. Pancreas: Normal size pancreas and pancreatic duct. No adjacent inflammation. Spleen: Normal size spleen. No mass or infarct. Adrenal glands: Normal. Right kidney: Normal. Left kidney: Normal. Aorta: Normal. Lymphadenopathy: None. Free fluid: Small amount of free fluid in the cul-de-sac. GI tract: Stomach is distended with fluid. No small bowel obstruction. Normal appendix. No GI tract o bstruction. Abdominal wall: Unremarkable abdominal wall. No hernia. Pelvis: Nondistended urinary bladder. Corpus luteum cyst LEFT ovary. LEFT ovary is slightly enlarged measuring 3.7 x 3.2 cm. Decreased enhancement of the cervix as also noted on a prior CT from 4. Normal appearance of the uterine cervical junction. Bones: Degenerative disc disease at L5-S1. CT/CT abdomen pelvis w con* [id number] IMPRESSION: 1. No renal obstruction or hydronephrosis. 2. Small amount of free fluid in the cul-de-sac. Slightly enlarged LEFT ovary with collapsing corpus luteal cyst. 3. Normal appendix. 4. No ascites.
[2024-07-29] MEDS: ketamine 100 mg/mL Inj 5 mL 20 MG IV (12:34)
[2024-07-29 12:38] VITALS: PULSE 55; O2SAT 100
--- NOTE | 2024-07-29 12:38 | PC.NURSE ---
patient continues to refuse BP cuff since triage.
[2024-07-29 13:13] LABS: HCG, Serum Qual Negative (Negative)
--- NOTE | 2024-07-29 13:28 | PC.NURSE ---
patient is continuing to refuse BP cuff on arm. documenting patient vitals of HR and O2
[2024-07-29] MEDS: iohexol 350 mg/mL 500 mL Btl (per mL) IV (13:48)
[2024-07-29] MEDS: haloperidol inj 5 mg/mL INJ 1 mL IVP (14:02)
--- NOTE | 2024-07-29 14:02 | ED_ITS ---
HPI - Nausea/Vomiting/Diarrhea 2 General: Chief complaint: Nausea/Vomiting/Diarrhea Stated complaint: n/v Time Seen by Provider: 07/29/24 09:52 History of Present Illness: 34-year-old female presents with nausea, vomiting, epigastric pain. She reports has been going on for at least a week. That she has a hard time getting down. Patient initially denied marijuana or any drug use to me. However she told the nurse that she stopped taking her methadone about a week ago both were prescribed and the staff she was getting off the street however she did use methamphetamines last night. Associated nausea: Yes Associated symtoms: Reports nausea; Denies chest pain, headache(s) or palpitations Related Data Home Medications Medication Instructions Recorded Confirmed fluoxetine 20 mg capsule 60 mg PO DAILY 10/16/21 07/29/24 propranolol 20 mg tablet 20 mg PO BID 10/16/21 07/29/24 buspirone 5 mg tablet 5 mg PO BID 10/04/23 07/29/24 hydroxyzine HCl 25 mg tablet 25 mg PO TID PRN Anxiety 10/04/23 07/29/24 trazodone 50 mg tablet 50 mg PO BEDTIME 10/04/23 07/29/24 Previous Rx's Medication Instructions Recorded pantoprazole 40 mg tablet,delayed 40 mg PO DAILY #60 tabs 03/31/24 release (Protonix) promethazine 12.5 mg tablet 12.5 mg PO Q6H PRN nausea and 07/29/24 vomiting #14 tabs Allergies Allergy/AdvReac Type Severity Reaction Status Date / Time No Known Allergies Allergy Verified 10/04/23 05:41 Review of Systems 2 Const: Reports: body aches Card: Denies: chest pain or palpitations Resp: Denies: dyspnea or productive cough GI: Reports: abdominal pain, nausea and vomiting Skin/Breast: Denies: rash Neuro: Denies: headache(s) PFSH ED 2 PFSH: Medical History No pertinent family history DDD (degenerative disc disease), lumbar Substance abuse ADHD Social History Smoking and tobacco/nicotine status: current every day tobacco/nicotine user Physical Exam 2 Const: COMMON NORMALS: patient oriented x3 and alert GENERAL APPEARANCE: d isheveled Resp: COMMON NORMALS: normal respiratory effort, No retractions and clear to auscultation bilaterally AUSCULTATION: clear to auscultation bilaterally Cardio: COMMON NORMALS: regular rhythm RATE: tachycardic RHYTHM: regular rhythm GI: PALPATION: Yes Tenderness to palpation present (GI) Neuro: COMMON NORMALS: patient oriented x3, moves all extremities, no focal motor deficits and no sensory deficits noted SENSORIUM/ORIENTATION: Yes alert Psych: COMMON NORMALS: mental status grossly normal MOOD & AFFECT: Yes anxious Course 2 Vital Signs: Vital signs: Vital Signs Temperature 97.5 F L 07/29/24 09:44 Pulse Rate 55 L 07/29/24 12:38 Respiratory Rate 22 H 07/29/24 09:44 Pulse Oximetry 100 07/29/24 12:38 Oxygen Delivery Me thod Room Air 07/29/24 12:38 MDM - Nausea/Vomiting/Diarrhea Medical Decision Making Patient diagnostic studies were ordered reviewed interpreted by me. Patient does have elevated white count that is likely due to her vomiting and reactive due to her methamphetamine use last night.. I did obtain a CT abdomen pelvis it was negative. Patient's symptoms are very consistent with opioid withdrawal as she admits to stopping methadone and that is when her symptoms seem to start. I had a long discussion with her regarding opiate withdrawal symptoms and is supportive care. Patient is stable and discharged home. Lab Data 07/29/24 09:54 07/29/24 09:54 Radiology Impressions Abdomen/Pelvis CT 07/29/24 12:18 IMPRESSION: 1. No renal obstruction or hydronephrosis. 2. Small amount of free fluid in the cul-de-sac. Slightly enlarged LEFT ovary with collapsing corpus luteal cyst. 3. Normal appendix. 4. No ascites. Laboratory Results WBC 19.87 10^3/uL (3.29-11.43) H 07/29/24 09:54 RBC 5.95 10^6/uL (3.85-5.65) H 07/29/24 09:54 Hgb 16.90 g/dL (11.27-16.99) 07/29/24 09:54 Hct 49.5 % (36-47) H 07/29/24 09:54 MCV 83.2 fl (85-98) L 07/29/24 09:54 MCH 28.4 pg (27-33) 07/29/24 09:54 MCHC 34.1 g/dL (30-55) 07/29/24 09:54 RDW 13.7 % (12.1-15.1) 07/29/24 09:54 Plt Count 330 10^3/cmm (157-399) 07/29/24 09:54 MPV 10.2 fL (7.4-10.4) 07/29/24 09:54 Neut % (Auto) 81.3 % 07/29/24 09:54 Lymph % (Auto) 11.6 % 07/29/24 09:54 [place] % (Auto) 4.9 % 07/29/24 09:54 Eos % (Auto) 1.4 % 07/29/24 09:54 Baso % (Auto) 0.3 % 07/29/24 09:54 Neut # (Auto) 16.16 10^3/uL (1.8-7.7) H 07/29/24 09:54 Lymph # (Auto) 2.3 10^3/uL (0.8-4.8) 07/29/24 09:54 [place] # (Auto) 1.0 10^3/uL (0.2-0.9) H 07/29/24 09:54 Eos # (Auto) 0.3 10^3/uL (0.0-0.8) 07/29/24 09:54 Baso # (Auto) 0.1 10^3/uL (0.0-0.1) 07/29/24 09:54 Nucleated RBC % (auto) 0 % 07/29/24 09:54 Nucleated RBCs # 0.0 /100WBC 07/29/24 09:54 Sodium 139 mmol/L (136-145) 07/29/24 09:54 Potassium 3.7 mmol/L (3.5-5.1) 07/29/24 09:54 Chloride 101 mmol/L (98-107) 07/29/24 09:54 Carbon Dioxide 22 mmol/L (22-29) 07/29/24 09:54 Anion Gap 19.7 (5-19) H 07/29/24 09:54 BUN 12 mg/dL (6-20) 07/29/24 09:54 Creatinine 0.6 mg/dL (0.5-0.9) 07/29/24 09:54 GFR Calculation 113.8 mL/min (90-130) 07/29/24 09:54 Glucose 157 mg/dL (65-115) H 07/29/24 09:54 Calculated Osmolality 291 mOsm/kg (285-295) 07/29/24 09:54 Calcium 9.6 mg/dL (8.5-10.5) 07/29/24 09:54 Magnesium 2.1 mg/dL (1.7-2.3) 07/29/24 09:54 Total Bilirubin 1.7 mg/dL (0.15-1.2) H 07/29/24 09:54 AST 15 U/L (0-32) 07/29/24 09:54 ALT 18 U/L (0-33) 07/29/24 09:54 Alkaline Phosphatase 157 U/L (35-105) H 07/29/24 09:54 Total Protein 7.6 g/dL (6.6-8.7) 07/29/24 09:54 Albumin 4.5 g/dL (3.5-5.2) 07/29/24 09:54 Globulin 3.1 g/dL (1.3-4.6) 07/29/24 09:54 Lipase 37 U/L (13-60) 07/29/24 09:54 HCG, Qual Negative (Negative) 07/29/24 13:00 Coronavirus (PCR) Negative (Negative) 07/29/24 10:34 Influenza A (PCR) Negative (Negative) 07/29/24 10:34 Influenza Type B (PCR) Negative (Negative) 07/29/24 10:34 RSV (PCR) Negative (Negative) 07/29/24 10:34 All radiology interpretation(s) finalized by discharge Discharge Plan Discharge Patient Disposition: Home Clinical Impression: Opioid dependence with withdrawal, Nausea & vomiting, Gastritis Condition: Stable Prescriptions: New promethazine 12.5 mg tablet 12.5 mg PO Q6H PRN (Reason: nausea and vomiting) Qty: 14 0RF Rx Instructions: 3 doses during day; last dose no later than 4 hr before bedtime No Action fluoxetine 20 mg capsule 60 mg PO DAILY propranolol 20 mg tablet 20 mg PO BID buspirone 5 mg tablet 5 mg PO BID trazodone 50 mg tablet 50 mg PO BEDTIME hydroxyzine HCl 25 mg tablet 25 mg PO TID PRN (Reason: Anxiety) pantoprazole [Protonix] 40 mg tablet,delayed release (DR/EC) 40 mg PO DAILY Qty: 60 0RF Discharge Orders: Discharge ED (Routine); Ordered 07/29/24 Ordered By: Tunde Hughes Referrals: Betina Lemon PA [Primary Care Provider] - Discharge Diet: Advance as tolerated Discharge Activity: Increase activity as tolerated Patient Instructions: Clear Liquid Diet (ED), Opioid Withdrawal (ED), Opioid Safety, Pain Management Activity Restrictions/Additional Instructions: Clear liquid diet for the next 24 to 36 hours and advance as tolerated. Follow- up with your primary care provider and 3 to 4 days if symptoms or not starting to improve. Coding Level of Care Code ED Hardware Installer for Adrianna Grier
--- NOTE | 2024-07-29 14:36 | PC.NURSE ---
PATIENT CONTINUES TO REFUSE BP AT THIS TIME.
== END 2024-07-29 15:13 | disposition home or self-care (01) ==
PROVIDERS: Emergency Provider Student in an Organized Health Care Education/Training Program; PCP Physician Assistant
DX: F11.23 Opioid dependence with withdrawal (principal); R11.2 Nausea with vomiting, unspecified; K29.70 Gastritis, unspecified, without bleeding; Z11.52 Encounter for screening for COVID-19; Z72.0 Tobacco use
CPT/HCPCS: 36415; 74177; 80053; 83690; 83735; 84703; 85025; 87637; 93005; 96374; 96375; 99285; J0131; J1200; J1630; J1885; J2765; J3490; J7030

== ENCOUNTER 2024-10-19 10:49 | Emergency (ER) | payer BC, MEDICAID, SELFPAY ==
[2024-10-19 10:53] VITALS: BP 162/98; PULSE 94; RESP 16; TEMP 36.8; O2SAT 100; BMI 26.6
--- NOTE | 2024-10-19 10:54 | ED_ITS ---
HPI - Nausea/Vomiting/Diarrhea 2 General: Chief complaint: Nausea/Vomiting/Diarrhea Stated complaint: Flu Like Time Seen by Provider: 10/19/24 10:50 Source: patient and EMS Mode of arrival: EMS Limitations: no limitations History of Present Illness: Patient is a 34-year-old female presents to the ED today via EMS for evaluation of nausea, vomiting, diarrhea beginning yesterday evening. Patient states she feels similar to when she was last diagnosed with the stomach flu . Patient is not running fevers however she states she was up all night yesterday evening with chills. She is not having any significant abdominal pain-does have mild diffuse discomfort. She does report that she has been exposed to somebody with c. difficile. Denies any recent poor food exposures. Patient is not having any urinary symptoms. She arrives in no acute distress. She has not noted any bloody emesis or bloody stools. MD elicited complaint: nausea, vomiting and diarrhea Onset (ago): hour(s) Description of diarrhea: watery Associated nausea: Yes Associated abdominal pain: Yes (mild/diffuse) Location of pain: Diffuse Radiation: diffuse Pain consistency: intermittent Severity: mild Quality: cramping Exacerbating factors: eating Relieving factors: none Associated symtoms: Reports nausea; Denies change in vision, chest pain, dizziness, dysuria, fatigue, headache(s) or malaise Related Data Previous Rx's ?Medication ?Instructions ?Recorded ondansetron 4 mg disintegrating 4 mg PO Q8H PRN nausea and 10/19/24 tablet vomiting #14 tabs Allergies Allergy/AdvReac Type Severity Reaction Status Date / Time No Known Allergies Allergy Verified 10/19/24 11:02 Review of Systems 2 Const: Reports: chills; Denies: fever(s), body aches, fatigue or malaise Eyes: Denies: change in vision ENMT: Denies: throat pain, odynophagia, ear or mastoid pain, nasal discharge, nasal congestion or sinus pain Card: Denies: chest pain Resp: Denies: dyspnea GI: Reports: abdominal pain, nausea, vomiting, diarrhea and GI cramping; Denies: hematemesis, hematochezia or melena : Denies: flank pain, difficulty voiding, dysuria, urinary frequency, urinary urgency or urinary hesitancy Musc: Denies: neck pain, back pain, extremity pain, extremity swelling, joint swelling or joint redness Skin/Breast: Denies: rash Neuro: Denies: headache(s), numbness in extremities, weakness in extremities, sensory changes or dizziness PFSH ED 2 PFSH: Medical History No pertinent family history DDD (degenerative disc disease), lumbar Substance abuse ADHD Social History Smoking and tobacco/nicotine status: current every day tobacco/nicotine user Physical Exam 2 Const: COMMON NORMALS: no acute distress, average body habitus, patient oriented x3, no limitations, healthy appearing, alert and well nourished G ENERAL APPEARANCE: cooperative ORIENTATION/CONSCIOUSNESS: Yes awake, Yes oriented to person, Yes oriented to place and Yes oriented to time Eye: COMMON NORMALS: no scleral icterus Resp: COMMON NORMALS: normal respiratory effort and clear to auscultation bilaterally AUSCULTATION: clear to auscultation bilaterally Cardio: COMMON NORMALS: regular rate and regular rhythm RATE: regular rate RHYTHM: regular rhythm GI: COMMON NORMALS: Normal to inspection, nondistended, normoactive bowel sounds present, Soft to palpation, No hepatosplenomegaly present and no masses INSPECTION: Yes normal to inspection AUSCULTATION: Yes normoactive bowel sounds PALPATION: Yes Soft to palpation, Yes Tenderness to palpation present (GI) (mild diffuse), No Guarding due to palpation present (GI), No Rigid due to palpation and Yes No hepatosplenomegaly present : COMMON NORMALS: Yes no CVA tenderness BLADDER/KIDNEY EXAM: Yes no CVA tenderness Back/Pelvis: COMMON NORMALS: no CVA tenderness Extremity: GENERAL: Yes normal exam except as noted Neuro: LINH COMA SCALE: document GCS findings [place] coma scale eye opening: Spontaneous [place] coma scale verbal response: Orientated [place] coma scale motor response: Obey commands [place] coma scale total score: 15 COMMON NORMALS: patient oriented x3, moves all extremities, no focal motor deficits and no sensory deficits noted SENSORIUM/ORIENTATION: Yes alert, Yes oriented to person, Yes oriented to place and Yes oriented to time Skin: COMMON NORMALS: no rashes or lesions noted GENERAL SKIN EXAM: no rashes or lesions noted Course 2 Vital Signs: Vital signs: Vital Signs Temperature 98.2 F 10/19/24 10:53 Pulse Rate 78 10/19/24 12:30 Respiratory Rate 16 10/19/24 10:53 Blood Pressure 146/96 10/19/24 12:30 Pulse Oximetry 100 10/19/24 12:30 Oxygen Delivery Me thod Room Air 10/19/24 12:30 MDM - Nausea/Vomiting/Diarrhea Medical Decision Making Patient here for nausea, vomiting, diarrhea. She has a nonsurgical abdomen. Clinically she appears in no acute distress. Vital signs are stable. Blood work is unremarkable. UA clear. She does states she has been in contact with the patient with c. difficile however in her over 2-hour ED stay, she did not have any diarrhea stool to obtain for sampling. I would suspect c. difficile would be unlikely. She will be allowed discharge with return precautions. Otherwise she can follow-up with primary care. Differential Diagnosis Likely food poisoning, gastroenteritis, clostridium difficile infection, drug- induced nausea and vomiting and dehydration Medical Records I reviewed the patient's medical records. Lab Data I reviewed the patient's lab results. 10/19/24 11:06 10/19/24 11:06 Laboratory Results WBC 10.64 10^3/uL (3.29-11.43) 10/19/24 11:06 RBC 5.09 10^6/uL (3.85-5.65) 10/19/24 11:06 Hgb 14.50 g/dL (11.27-16.99) 10/19/24 11:06 Hct 43.7 % (36-47) 10/19/24 11:06 MCV 85.9 fl (85-98) 10/19/24 11:06 MCH 28.5 pg (27-33) 10/19/24 11:06 MCHC 33.2 g/dL (30-55) 10/19/24 11:06 RDW 12.2 % (12.1-15.1) 10/19/24 11:06 Plt Count 264 10^3/cmm (157-399) 10/19/24 11:06 MPV 9.4 fL (7.4-10.4) 10/19/24 11:06 Neut % (Auto) 76.8 % 10/19/24 11:06 Lymph % (Auto) 18.8 % 10/19/24 11:06 [place] % (Auto) 2.6 % 10/19/24 11:06 Eos % (Auto) 1.1 % 10/19/24 11:06 Baso % (Auto) 0.4 % 10/19/24 11:06 Neut # (Auto) 8.17 10^3/uL (1.8-7.7) H 10/19/24 11:06 Lymph # (Auto) 2.0 10^3/uL (0.8-4.8) 10/19/24 11:06 [place] # (Auto) 0.3 10^3/uL (0.2-0.9) 10/19/24 11:06 Eos # (Auto) 0.1 10^3/uL (0.0-0.8) 10/19/24 11:06 Baso # (Auto) 0.0 10^3/uL (0.0-0.1) 10/19/24 11:06 Nucleated RBC % (auto) 0 % 10/19/24 11:06 Nucleated RBCs # 0.0 /100WBC 10/19/24 11:06 Sodium 139 mmol/L (136-145) 10/19/24 11:06 Potassium 3.5 mmol/L (3.5-5.1) 10/19/24 11:06 Chloride 106 mmol/L (98-107) 10/19/24 11:06 Carbon Dioxide 23 mmol/L (22-29) 10/19/24 11:06 Anion Gap 13.5 (5-19) 10/19/24 11:06 BUN 5 mg/dL (6-20) L 10/19/24 11:06 Creatinine 0.5 mg/dL (0.5-0.9) 10/19/24 11:06 GFR Calculation 140.4 mL/min (90-130) H 10/19/24 11:06 Glucose 124 mg/dL (65-115) H 10/19/24 11:06 Calculated Osmolality 287 mOsm/kg (285-295) 10/19/24 11:06 Calcium 8.7 mg/dL (8.5-10.5) 10/19/24 11:06 Total Bilirubin 0.5 mg/dL (0.15-1.2) 10/19/24 11:06 AST 12 U/L (0-32) 10/19/24 11:06 ALT 11 U/L (0-33) 10/19/24 11:06 Alkaline Phosphatase 108 U/L (35-105) H 10/19/24 11:06 Total Protein 6.6 g/dL (6.6-8.7) 10/19/24 11:06 Albumin 3.7 g/dL (3.5-5.2) 10/19/24 11:06 Globulin 2.9 g/dL (1.3-4.6) 10/19/24 11:06 HCG, Qual Negative (Negative) 10/19/24 11:06 Urine Color Yellow (Yellow) 10/19/24 12:35 Urine Appearance Clear (CLEAR) 10/19/24 12:35 Urine pH 8 (5-7) A 10/19/24 12:35 Ur Specific [place] 1.015 (1.005-1.030) 10/19/24 12:35 Urine Protein Neg (Negative) 10/19/24 12:35 Urine Glucose (UA) Norm (Normal) 10/19/24 12:35 Urine Ketones Negative (Negative) 10/19/24 12:35 Urine Blood Neg (Negative) 10/19/24 12:35 Urine Nitrate Negative (Negative) 10/19/24 12:35 Urine Bilirubin Neg (Negative) 10/19/24 12:35 Urine Urobilinogen Neg mg/dL (Negative) 10/19/24 12:35 Ur Leukocyte Esterase Negative (Negative) 10/19/24 12:35 Amorphous Sediment Not Reportable 10/19/24 12:35 No radiology studies performed this visit Discharge Plan Discharge Patient Disposition: Home Clinical Impression: Nausea, vomiting, and diarrhea Condition: Stable Prescriptions: New ondansetron 4 mg tablet,disintegrating 4 mg PO Q8H PRN (Reason: nausea and vomiting) Qty: 14 0RF Discharge Orders: Discharge ED (Routine); Ordered 10/19/24 Ordered By: Sandrita Díaz Referrals: Betina Lemon PA [Primary Care Provider] - Patient Instructions: Gastroenteritis (DC), Acute Nausea and Vomiting (DC) Print Language: [place] Citizen Coding Level of Care Code ED Director Search Marketing Strategies for Adrianna Grier
[2024-10-19 11:10] LABS: Basophils % 0.4 %; Eosinophils # 0.1 10^3/uL (0.0-0.8); Eosinophils % 1.1 %; Hematocrit 43.7 % (36-47); Lymphocytes % 18.8 %; Mean Corpuscular HGB Conc 33.2 g/dL (30-55); Mean Corpuscular Hemoglobin 28.5 pg (27-33); Mean Corpuscular Volume 85.9 fl (85-98); Mean Platelet Volume 9.4 fL (7.4-10.4); Monocytes # 0.3 10^3/uL (0.2-0.9); Monocytes % 2.6 %; Neutrophils # 8.17 10^3/uL (1.8-7.7); Neutrophils % 76.8 %; Nucleated Red Blood Cells % 0 %; Platelet Count 264 10^3/cmm (157-399); Red Blood Count 5.09 10^6/uL (3.85-5.65); Red Cell Distribution Width 12.2 % (12.1-15.1); White Blood Count 10.64 10^3/uL (3.29-11.43)
[2024-10-19] MEDS: sodium chloride 0.9% 1,000 ML 999 ML IV (11:26)
[2024-10-19] MEDS: ondansetron 2 mg/ML SDV 2 mL 4 MG IVP (11:26)
[2024-10-19 11:27] VITALS: BP 133/95; PULSE 86; O2SAT 97
[2024-10-19 11:31] VITALS: BP 160/93; PULSE 77; O2SAT 100
[2024-10-19 11:31] LABS: Alanine Aminotransferase 11 U/L (0-33); Albumin Level 3.7 g/dL (3.5-5.2); Alkaline Phosphatase 108 U/L (35-105); Anion Gap 13.5 (5-19); Aspartate Amino Transferase 12 U/L (0-32); Blood Urea Nitrogen 5 mg/dL (6-20); Calcium 8.7 mg/dL (8.5-10.5); Carbon Dioxide 23 mmol/L (22-29); Chloride 106 mmol/L (98-107); Creatinine Clr Calc Pharmacy 173.7688; Globulin 2.9 g/dL (1.3-4.6); Glomerular Filtration Rate 140.4 mL/min (90-130); Glucose 124 mg/dL (65-115); Osmolality Calculated 287 mOsm/kg (285-295); Potassium 3.5 mmol/L (3.5-5.1); Sodium 139 mmol/L (136-145); Total Bilirubin 0.5 mg/dL (0.15-1.2); Total Protein 6.6 g/dL (6.6-8.7)
[2024-10-19 11:36] LABS: HCG, Serum Qual Negative (Negative)
--- NOTE | 2024-10-19 11:55 | PC.NURSE ---
during first assessment, this nurse informed pt that a urine sample and stool sample would be collected if pt was able to provide. PT voiced understanding and stated she didn't need to go at that time. call light within reach and pt educated to push light when needing to use restroom.
[2024-10-19 12:01] VITALS: BP 159/94; PULSE 69; O2SAT 100
--- NOTE | 2024-10-19 12:22 | PC.NURSE ---
this nurse asked pt again if pt could provide urine sample, pt reports no again.
[2024-10-19 12:30] VITALS: BP 146/96; PULSE 78; O2SAT 100
--- NOTE | 2024-10-19 12:32 | PC.NURSE ---
pt was given sandwich and sprite, tolerated fine.
[2024-10-19 12:46] LABS: Add Urine Microscopic? NO
[2024-10-19 12:52] LABS: Bilirubin Urine Neg (Negative); Blood Urine Neg (Negative); Glucose Urine UA Norm (Normal); Ketones Urine Negative (Negative); Leukocyte Esterase Urine Negative (Negative); Nitrate Urine Negative (Negative); Protein Urine Neg (Negative); Specific Gravity, Urine 1.015 (1.005-1.030); Urine Appearance Clear (CLEAR); Urine Color Yellow (Yellow); Urobilinogen Urine Neg (Negative); pH Urine 8 (5-7)
[2024-10-19 12:53] LABS: Charge for UA Resulting for Rev
[2024-10-19] MEDS: metoclopramide 5 mg/mL SDV 2 mL 10 MG IVP (13:02)
[2024-10-19 13:09] VITALS: BP 172/80; PULSE 84; O2SAT 99
== END 2024-10-19 13:10 | disposition home or self-care (01) ==
PROVIDERS: Emergency Provider Physician Assistant; PCP Physician Assistant
DX: R11.2 Nausea with vomiting, unspecified (principal); R19.7 Diarrhea, unspecified; Z72.0 Tobacco use
CPT/HCPCS: 36415; 80053; 81003; 84703; 85025; 96374; 96375; 99285; J2405; J2765; J7030

== ENCOUNTER 2024-10-29 12:54 | Observation (INO) | payer BC, MEDICAID, SELFPAY ==
[2024-10-29] VITALS (49 sets, daily range): BP systolic 152–228; BP diastolic 76–153; PULSE 57–108; RESP 15–31; TEMP 36.5–36.9; O2SAT 93–100; BMI 25.8; BMI 26.3
--- NOTE | 2024-10-29 13:00 | ED_ITS ---
HPI - Abdominal Pain 2 General: Chief Complaint: Abdominal Pain Stated Complaint: abd pain Time Seen by Provider: 10/29/24 12:59 History of Present Illness: 34-year-old female presents emergency ro om via EMS complaint of abdominal pain along with persistent nausea and vomiting. She has a bit of a headache. She has a history of hypertension. She complaining of some lower abdominal pain. Patient is noncompliant with her blood pressure medicines. She is also supposed to be on some psychiatric medications but has not been taking them. She has passive thoughts of harming self but has not done anything to advance lethality patient is on parole and has an ankle monitor in place at home. She denies use of any drugs or alcohol or marijuana Associated Symptoms: Denies chills, dysuria and fever(s) Related Data Previous Rx's ?Medication ?Instructions ?Recorded ondansetron 4 mg disintegrating 4 mg PO Q8H PRN nausea and 10/19/24 tablet vomiting #14 tabs Allergies Allergy/AdvReac Type Severity Reaction Status Date / Time No Known Allergies Allergy Verified 10/19/24 11:02 Review of Systems 2 Const: Denies: fever(s) or chills Card: Denies: chest pain Resp: Denies: dyspnea GI: Denies: abdominal pain : Denies: dysuria, urinary frequency or urinary urgency Musc: Denies: neck pain or back pain Skin/Breast: Denies: rash PFSH ED 2 PFSH: Medical History No pertinent family history DDD (degenerative disc disease), lumbar Substance abuse ADHD Social History Smoking and tobacco/nicotine status: current every day tobacco/nicotine user Physical Exam 2 Const: GENERAL APPEARANCE: cooperative ORIENTATION/CONSCIOUSNESS: Yes awake, Yes oriented to person, Yes oriented to place and Yes oriented to time HENMT: COMMON NORMALS: normocephalic, atraumatic and hearing grossly normal bilaterally HEAD & SCALP: normocephalic and atraumatic Resp: COMMON NORMALS: normal respiratory effort, No retractions, No use of accessory muscles and clear to auscultation bilaterally AUSCULTATION: clear to auscultation bilaterally Cardio: COMMON NORMALS: regular rate, regular rhythm and No murmurs present (Cardio) RATE: regular rate RHYTHM: regular rhythm GI: COMMON NORMALS: Soft to palpation and No hepatosplenomegaly present A USCULTATION: Yes normoactive bowel sounds PALPATION: Yes Soft to palpation, No Tenderness to palpation present (GI), No Guarding due to palpation present (GI) and Yes No hepatosplenomegaly present Extremity: COMMON NORMALS: normal to inspection, capillary refill normal, no clubbing, cyanosis or edema, no calf tenderness and no pedal edema Neuro: SENSORIUM/ORIENTATION: Yes oriented to person, Yes oriented to place and Yes oriented to time Skin: COMMON NORMALS: no rashes or lesions noted GENERAL SKIN EXAM: no rashes or lesions noted Course 2 Vital Signs: Vital signs: Vital Signs Temperature 97.7 F 10/29/24 13:07 Pulse Rate 57 L 10/29/24 13:07 Blood Pressure 228/102 10/29/24 13:07 Pulse Oximetry 100 10/29/24 13:07 MDM - Abdominal Pain Medical Decision Making Patient is hypokalemic having frequent PVCs as well as persistent hypertension. She was given hydralazine did not significantly improve we will start her on nicardipine she is also been given IV potassium to replenish. Magnesium is normal. Discussed with hospitalist will place on observation CT head negative chest x-ray unremarkable EKG shows bigeminy Medical Records I reviewed the patient's medical records. Lab Data I reviewed the patient's lab results. 10/29/24 13:20 10/29/24 13:20 Labs/Radiology: Radiology Impressions Abdomen/Pelvis CT 10/29/24 13:23 [address]PRESS[address]: 1[address] No CT evidence of acute intra-abdominal or pelvic pathology. 2. Additional findings, as above. Head CT 10/29/24 16:[address]: 1[address] No [address] evidence of acute intracranial pathology. 2. Additional findings, as above. Laboratory Results WBC 16.07 10^3/uL (3.29-11.43) H 10/29/24 13:20 RBC 5.39 10^6/uL (3.85-5.65) 10/29/24 13:20 Hgb 15.30 g/dL (11.27-16.99) 10/29/24 13:20 Hct 46.6 % (36-47) 10/29/24 13:20 MCV 86.5 fl (85-98) 10/29/24 13:20 MCH 28.4 pg (27-33) 10/29/24 13:20 MCHC 32.8 g/dL (30-55) 10/29/24 13:20 RDW 12.4 % (12.1-15.1) 10/29/24 13:20 Plt Count 399 10^3/cmm (157-399) 10/29/24 13:20 MPV 9.1 fL (7.4-10.4) 10/29/24 13:20 Neut % (Auto) 72.6 % 10/29/24 13:20 Lymph % (Auto) 23.0 % 10/29/24 13:20 [place] % (Auto) 3.4 % 10/29/24 13:20 Eos % (Auto) 0.3 % 10/29/24 13:20 Baso % (Auto) 0.3 % 10/29/24 13:20 Neut # (Auto) 11.67 10^3/uL (1.8-7.7) H 10/29/24 13:20 Lymph # (Auto) 3.7 10^3/uL (0.8-4.8) 10/29/24 13:20 [place] # (Auto) 0.6 10^3/uL (0.2-0.9) 10/29/24 13:20 Eos # (Auto) 0.1 10^3/uL (0.0-0.8) 10/29/24 13:20 Baso # (Auto) 0.1 10^3/uL (0.0-0.1) 10/29/24 13:20 Nucleated RBC % (auto) 0 % 10/29/24 13:20 Nucleated RBCs # 0.0 /100WBC 10/29/24 13:20 Sodium 143 mmol/L (136-145) 10/29/24 13:20 Potassium 2.7 mmol/L (3.5-5.1) L* 10/29/24 13:20 Chloride 100 mmol/L (98-107) 10/29/24 13:20 Carbon Dioxide 28 mmol/L (22-29) 10/29/24 13:20 Anion Gap 17.7 (5-19) 10/29/24 13:20 BUN 4 mg/dL (6-20) L 10/29/24 13:20 Creatinine 0.6 mg/dL (0.5-0.9) 10/29/24 13:20 GFR Calculation 113.8 mL/min (90-130) 10/29/24 13:20 Glucose 132 mg/dL (65-115) H 10/29/24 13:20 Calculated Osmolality 295 mOsm/kg (285-295) 10/29/24 13:20 Calcium 9.1 mg/dL (8.5-10.5) 10/29/24 13:20 Magnesium 1.8 mg/dL (1.7-2.3) 10/29/24 13:20 Total Bilirubin 0.9 mg/dL (0.15-1.2) 10/29/24 13:20 AST 18 U/L (0-32) 10/29/24 13:20 ALT 18 U/L (0-33) 10/29/24 13:20 Alkaline Phosphatase 130 U/L (35-105) H 10/29/24 13:20 Total Protein 7.4 g/dL (6.6-8.7) 10/29/24 13:20 Albumin 4.3 g/dL (3.5-5.2) 10/29/24 13:20 Globulin 3.1 g/dL (1.3-4.6) 10/29/24 13:20 Lipase 17 U/L (13-60) 10/29/24 13:20 HCG, Qual Negative (Negative) 10/29/24 13:20 Urine Color Yellow (Yellow) 10/29/24 13:08 Urine Appearance Cloudy (CLEAR) A 10/29/24 13:08 Urine pH >=9.0 (5-7) A 10/29/24 13:08 Ur Specific [place] 1.010 (1.005-1.030) 10/29/24 13:08 Urine Protein Trace (Negative) A 10/29/24 13:08 Urine Glucose (UA) Negative (Normal) 10/29/24 13:08 Urine Ketones Negative (Negative) 10/29/24 13:08 Urine Blood Negative (Negative) 10/29/24 13:08 Urine Nitrate Negative (Negative) 10/29/24 13:08 Urine Bilirubin Negative (Negative) 10/29/24 13:08 Urine Urobilinogen 0.2 mg/dL (Negative) 10/29/24 13:08 Ur Leukocyte Esterase Negative (Negative) 10/29/24 13:08 Urine RBC 0-2 /hpf (0-2) 10/29/24 13:08 Urine WBC 11-20 /hpf (0-5) H 10/29/24 13:08 Ur Squamous Epith Cells 21-50 /hpf (0-5) H 10/29/24 13:08 Amorphous Sediment Not Reportable 10/29/24 13:08 Urine Bacteria 2+ /hpf (NONE) H 10/29/24 13:08 Hyaline Casts 0-4 /lpf H 10/29/24 13:08 Urine Opiates Screen Negative ng/mL (Negative) 10/29/24 13:08 Ur Barbiturates Screen Negative ng/mL (Negative) 10/29/24 13:08 Ur Phencyclidine Scrn Negative ng/mL (Negative) 10/29/24 13:08 Ur Amphetamines Screen Negative ng/mL (Negative) 10/29/24 13:08 U Benzodiazepines Scrn Negative ng/mL (Negative) 10/29/24 13:08 Urine Cocaine Screen Negative ng/mL (Negative) 10/29/24 13:08 U Marijuana (THC) Screen Positive ng/mL (Negative) H 10/29/24 13:08 All radiology interpretation(s) finalized by discharge Discharge Plan Discharge Patient Disposition: Placed in Observation Clinical Impression: Accelerated essential hypertension, Substance abuse, Nausea and vomiting, Hypokalemia Condition: Stable Prescriptions: No Action ondansetron 4 mg tablet,disintegrating 4 mg PO Q8H PRN (Reason: nausea and vomiting) Qty: 14 0RF Referrals: Betina Lemon PA [Primary Care Provider] - Print Language: [place] Coding Level of Care Code ED Facilities Coordinator for Adrianna Grier
--- NOTE | 2024-10-29 13:23 | CTR_ITS ---
PROCEDURE INFORMATION: Exam: CT Abdomen And Pelvis With Contrast Exam date and time: 10/29/2024 2:56 PM Age: 34 years old Clinical indication: Abdominal pain; Localized; Lower; Additional info: Abd pain, diarrhea, low potassium TECHNIQUE: Imaging protocol: Computed tomography of the abdomen and pelvis with contrast. Axial, coronal and sagittal reformatted images were created and reviewed. Radiation optimization: All CT scans at this facility use at least one of these dose optimization techniques: automated exposure control; mA and/or kV adjustment per patient size (includes targeted exams where dose is matched to clinical indication); or iterative reconstruction. Contrast material: OMNIPAQUE 350; Contrast volume: 100 ml; Contrast route: INTRAVENOUS (IV); COMPARISON: CT abdomen pelvis w con* [id number] 07/29/2024 1:40 PM RADIATION DOSE METRICS: Total DLP (mGy-cm): 482.19 FINDINGS: Diaphragm: Small hiatal hernia. Liver: Mild hepatomegaly. Ill-defined hypoattenuation adjacent to the falciform ligament, suggesting focal fatty infiltration. Gallbladder and biliary ducts: No radiodense gallstones. No biliary ductal dilatation. Pancreas: Unremarkable. Spleen: Unremarkable. Adrenal glands: Normal. No mass. Kidneys and ureters: No mass. No radiodense calculi. No hydronephrosis. Stomach and bowel: No bowel wall thickening. No obstruction. No pneumatosis. Appendix: Normal. Intraperitoneal space: Trace nonspecific free pelvic fluid, likely physiologic. No organized fluid collection. No free air. Vasculature: Unremarkable. No aneurysm. Lymph nodes: No pathologically enlarged lymph nodes. Urinary bladder: Unremarkable as visualized. Reproductive: Unremarkable. Bones/joints: No acute osseous abnormality. Soft tissues: Unremarkable. CT/CT abdomen pelvis w con* [id number]: 1. No CT evidence of acute intra-abdominal or pelvic pathology. 2. Additional findings, as above.
[2024-10-29 13:24] LABS: Bilirubin Urine Negative (Negative); Blood Urine Negative (Negative); Glucose Urine UA Negative (Normal); Ketones Urine Negative (Negative); Leukocyte Esterase Urine Negative (Negative); Nitrate Urine Negative (Negative); Protein Urine Trace (Negative); Urine Appearance Cloudy (CLEAR); Urine Color Yellow (Yellow); Urobilinogen Urine 0.2 mg/dL (Negative); pH Urine >=9.0 (5-7)
[2024-10-29 13:29] LABS: Add Urine Microscopic? YES; Bacteria Urine 2+ /hpf; Hyaline Casts Urine 0-4 /lpf; RBC Urine 0-2 /hpf (0-2); Squamous Epithelial Cell Urine 21-50 /hpf (0-5)
[2024-10-29] MEDS: sodium chloride 0.9% 1,000 ML 999 ML IV ×3 (13:32→15:14)
[2024-10-29] MEDS: prochlorperazine 10 mg/2 mL Inj IVP (13:35)
[2024-10-29 13:40] LABS: Basophils # 0.1 10^3/uL (0.0-0.1); Basophils % 0.3 %; Eosinophils # 0.1 10^3/uL (0.0-0.8); Eosinophils % 0.3 %; Hematocrit 46.6 % (36-47); Lymphocytes # 3.7 10^3/uL (0.8-4.8); Mean Corpuscular HGB Conc 32.8 g/dL (30-55); Mean Corpuscular Hemoglobin 28.4 pg (27-33); Mean Corpuscular Volume 86.5 fl (85-98); Mean Platelet Volume 9.1 fL (7.4-10.4); Monocytes # 0.6 10^3/uL (0.2-0.9); Monocytes % 3.4 %; Neutrophils # 11.67 10^3/uL (1.8-7.7); Neutrophils % 72.6 %; Nucleated Red Blood Cells % 0 %; Platelet Count 399 10^3/cmm (157-399); Red Blood Count 5.39 10^6/uL (3.85-5.65); Red Cell Distribution Width 12.4 % (12.1-15.1); White Blood Count 16.07 10^3/uL (3.29-11.43)
[2024-10-29 14:00] LABS: Alanine Aminotransferase 18 U/L (0-33); Albumin Level 4.3 g/dL (3.5-5.2); Alkaline Phosphatase 130 U/L (35-105); Anion Gap 17.7 (5-19); Aspartate Amino Transferase 18 U/L (0-32); Blood Urea Nitrogen 4 mg/dL (6-20); Calcium 9.1 mg/dL (8.5-10.5); Carbon Dioxide 28 mmol/L (22-29); Chloride 100 mmol/L (98-107); Globulin 3.1 g/dL (1.3-4.6); Glomerular Filtration Rate 113.8 mL/min (90-130); Glucose 132 mg/dL (65-115); Lipase 17 U/L (13-60); Osmolality Calculated 295 mOsm/kg (285-295); Sodium 143 mmol/L (136-145); Total Bilirubin 0.9 mg/dL (0.15-1.2); Total Protein 7.4 g/dL (6.6-8.7)
[2024-10-29 14:15] LABS: Potassium 2.7 mmol/L (3.5-5.1)
[2024-10-29 14:19] LABS: HCG, Serum Qual Negative (Negative)
[2024-10-29] MEDS: potassium chloride premix 100 ML 25 MEQ IV (14:32)
[2024-10-29 14:40] LABS: Magnesium 1.8 mg/dL (1.7-2.3)
[2024-10-29] MEDS: iohexol 350 mg/mL 500 mL Btl (per mL) IV (15:01)
[2024-10-29] MEDS: ketorolac 30 mg/mL INJ IVP (16:40)
[2024-10-29] MEDS: hyDRALAzine 20 mg/mL INJ 1 mL IVP (16:43)
--- NOTE | 2024-10-29 16:43 | CTR_ITS ---
PROCEDURE INFORMATION: Exam: CT Head Without Contrast Exam date and time: 10/29/2024 4:55 PM Age: 34 years old Clinical indication: Pain; Headache; Vascular; Additional info: Accelerated hypertension, persistent nausea vomiting TECHNIQUE: Imaging protocol: Computed tomography of the head without contrast. Axial, coronal and sagittal reformatted images were created and reviewed. Radiation optimization: All CT scans at this facility use at least one of these dose optimization techniques: automated exposure control; mA and/or kV adjustment per patient size (includes targeted exams where dose is matched to clinical indication); or iterative reconstruction. COMPARISON: CT neck w con* [id number] 04/01/2024 11:51 AM RADIATION DOSE METRICS: Total DLP (mGy-cm): 981.28 FINDINGS: Brain: No CT evidence of acute intracranial hemorrhage or acute territorial infarction. No significant mass effect or midline shift. Basal cisterns patent. Cerebral ventricles: Normal in size and configuration. Paranasal sinuses: Mild polypoid left sphenoid sinus mucosal thickening. No air-fluid levels. Mastoid air cells: Partial opacification of the right mastoid air cells. Bones: Unremarkable. No acute fracture. Soft tissues: Small sebaceous cyst in the left parietal scalp. CT/CT head wo con* [id number]ION: 1. No CT evidence of acute intracranial pathology. 2. Additional findings, as above.
[2024-10-29 17:15] LABS: Amphetamines Screen Urine Negative (Negative); Barbiturates Screen Urine Negative (Negative); Benzodiazepines Screen Urine Negative (Negative); Cocaine Screen Urine Negative (Negative); Opiate Screen Urine Negative (Negative); PCP Screen Urine Negative (Negative); THC Screen Urine Positive (Negative)
--- NOTE | 2024-10-29 17:17 | ECG_ITS ---
[employer] Test Date: 2024-10-29 Pat Name: Rowan Howell Department: Room: Gender: Female Export Coordinator: : 1990 Requested By: Leo Bhakta Order Number: [id number] Reading MD: FERNANDO MYRICK Measurements Intervals [place] Rate: 85 P: 64 VT: 124 QRS: 71 QRSD: 105 T: 69 QT: 427 QTc: 510 Interpretive Statements SINUS RHYTHM WITH FREQUENT VENTRICULAR PREMATURE COMPLEXES IN A BIGEMINAL PATTERN ABNORMAL RHYTHM ECG Compared to ECG 07/29/2024 11:30:30 Ventricular premature complex(es) now present Sinus bradycardia no longer present Electronically Signed On 11-01-2024 21:00:11 CDT by FERNANDO MYRICK [email or web address]
--- NOTE | 2024-10-29 17:37 | P.HP_ITS ---
Providers/Chief Complaint 2 Primary Care Provider: Betina Lemon Chief Complaint: abd pain History of Present Illness Rowan Howell is a 34 year old female with past medical history of hypertension, substance abuse, on probation, presented with complaint of nausea and vomiting since 2 days. She reports she has not been eating and drinking well. She thinks she must have flu, has been suffering from cold and cough since 3 to 4 days. Nausea and vomiting is associated with diffuse crampy abdominal pain, no aggravating or relieving factors. In ER she was found to be hypertensive with blood pressure of 228/102, 198/104. Review of Systems 2 General: Reports: 10 or more systems reviewed and unremarkable except in HPI and below Medications/Allergies Home Medications ?Medication ?Instructions ?Recorded ?Confirmed ?Last Taken ?Type ondansetron 4 mg disintegrating 4 mg PO Q8H PRN nausea and 10/19/24 10/29/24 Unknown Rx tablet vomiting #14 tabs Allergies Allergy/AdvReac Type Severity Reaction Status Date / Time No Known Allergies Allergy Verified 10/19/24 11:02 PFSH Acute 2 PFSH: Medical History No pertinent family history DDD (degenerative disc disease), lumbar Substance abuse ADHD Social History Smoking and tobacco/nicotine status: current every day tobacco/nicotine user Vitals/I&O/Wt Last Vital Signs Temp 97.7 F 10/29/24 13:07 Pulse 57 L 10/29/24 13:07 BP 228/102 10/29/24 13:07 Pulse Ox 100 10/29/24 13:07 10/29/24 10/29/24 10/29/24 06:59 14:59 22:59 Intake Total 0 0 1999 Balance 0 / 0 1999 Weight last 48 hrs Weight 77.111 kg Physical Exam 2 Narrative: She is alert awake oriented x 3, in mild distress due to abdominal pain Chest clear to auscultation bilaterally Cardiovascular normal heart sounds no murmurs Abdomen soft diffusely tender, nondistended normal bowel sounds Extremities no edema noted bilateral lower extremity Data 10/29/24 13:20 10/29/24 13:20 A&P Assessment and plan (1) Nausea and vomiting: (2) Hypertensive urgency: (3) Hypokalemia: Jesse Rowan Howell is a 34 year old female with past medical history of hypertension, substance abuse, on probation, presented with complaint of nausea and vomiting associated with diffuse abdominal pain since 2 days and found to have hypertensive urgency in the ER with blood pressure of 228/102. #Hypertensive urgency-patient reports taking hydralazine in the past for high blood pressure. Blood pressure found to be oh 228/102, 198/106 in ED Received IV hydralazine 20 mg x 1 in ED Will do IV hydralazine 20 mg x 1 dose now If still hypertensive, will probably need cardene drip. P.o. hydralazine 25 mg [address] head negative for acute findings. EKG showed sinus rhythm with bigeminy, no acute ST-T changes Received k-rider x 1 in ED will do iv potassium 99zivi1 and magnesium sulphate 1gm x1 now. Telemetry monitoring Check 2D echo Check troponins #Abdominal pain-likely secondary to nausea and vomiting secondary to flulike syndrome/substance abuse Had WBC count of 16.0 likely reactive Will hold off on antibiotics for now Will do IV Zofran 4 mg every 6 hours as needed for nausea and vomiting IV Compazine 10 mg every 6 hours as needed Will do IV fluids lactated Ringer at 75 cc/h CT abdomen pelvis negative for acute findings. UA negative U tox positive for marijuana #Hypokalemia-likely secondary to vomiting Potassium 2.7, replaced in ER Follow-up labs in a.m. DVT prophylaxis with SCD GI prophylaxis with IV Pepcid 20 mg twice daily CODE STATUS discussed with patient, she is full code PDMP PDMP Reviewed: Not Reviewed Attestations 2 Medical Necessity Statement*: She needs continued hospitalization not crossing 2 midnights for management of nausea and vomiting with IV fluids, management of hypokalemia with potassium replacement and hypertensive urgency with telemetry monitoring and hydralazine Time Spent in Patient Care: 40minutes Coding Level of Care Code Acute Code for Chg Fwd Diagnoses Nausea and vomiting R11.2 Hypertensive urgency I16.0 Hypokalemia E87.6 Time Spent (min) 40
--- NOTE | 2024-10-29 17:52 | USCV_ITS ---
Rowan Howell Age: 34 Gender: F : 1990 Exam Date: 10/29/2024 18:33 Ordering Phys: Jazzy Hamilton MD Technologist: SANDRA Exam Location: [facility] [place] Indication: hypertensive urgency BP: 172 / 86 HR: 91 Rhythm: Sinus Technical Quality: Adequate MEASUREMENTS (Male / Female) Normal Values 2D ECHO LV Diastolic Diameter PLAX 4.2 cm 4.2 - 5.9 / 3.9 - 5.3 cm IVS Diastolic Thickness 1.5 cm 0.6 - 1.0 / 0.6 - 0.9 cm IVS Systolic Thickness 1.6 cm LVPW Diastolic Thickness 1.6 cm 0.6 - 1.0 / 0.6 - 0.9 cm LVPW Systolic Thickness 1.7 cm LVOT Diameter 2.0 cm LV Ejection Fraction 2D Teich 61.7 % LV Ejection Fraction MOD 4C 69.1 % LV Ejection Fraction MOD 2C 64.3 % LV Ejection Fraction 2C AL 64.0 % LA Diameter 3.3 cm RA Systolic Volume 4C AL 26.7 ml RA Systolic Volume 4C MOD 24.2 ml LA Sys Volume AL 28.1 cm cubed LA Sys Volume Index AL 14.5 cm cubed/m squared Aorta at Sinotubular Diameter 2.3 cm IVC Diameter 1.8 cm M-MODE LA Ao Ratio MM 1.1 AV Cusp Separation MM 2.1 cm DOPPLER AV Peak Velocity 200.0 cm/s LVOT Peak Velocity 153.0 cm/s AV Area Cont Eq vti 2.7 cm squared AV Area Cont Eq pk 2.5 cm squared MV Peak Velocity 78.0 cm/s MV Area PHT 4.0 cm squared Mitral E to A Ratio 0.9 TV Peak Velocity 313.0 cm/s TR Peak Velocity 370.0 cm/s TR Peak Gradient 54.8 mmHg TR Mean Velocity 291.0 cm/s TR Mean Gradient 36.1 mmHg TR Velocity Time Integral 76.7 cm PV Peak Velocity 154.3 cm/s RV Ejection Time 0.2 s FINDINGS Left Ventricle Normal left ventricular size, systolic function and wall thickness, with no regional wall motion abnormalities. Left ventricular ejection fraction is estimated at 60 %. Grade I/IV diastolic dysfunction (abnormal relaxation filling pattern), normal to mildly elevated filling pressures. Right Ventricle The right ventricle is normal in size and function. Right Atrium The right atrium is normal in size. Left Atrium The left atrium is normal in size. Mitral Valve Mildly thickened mitral valve. No mitral valve stenosis. Trace mitral valve regurgitation. Aortic Valve Moderate aortic valve calcification. Mild aortic valve stenosis, mean gradient 7.3 mmHg, SETH 2.7 cm squared. No aortic valve regurgitation. Tricuspid Valve Structurally normal tricuspid valve without significant stenosis or regurgitation. Pulmonary artery systolic pressure is normal. Pulmonic Valve Structurally normal pulmonic valve without significant stenosis. There is no pulmonic regurgitation. Pericardium Normal pericardium without effusion. Aorta Normal ascending aorta dimension. IVC The inferior vena cava appears normal. CONCLUSIONS Normal left ventricular size, systolic function and wall thickness, with no regional wall motion abnormalities. Left ventricular ejection fraction is estimated at 60 %. Grade I/IV diastolic dysfunction (abnormal relaxation filling pattern), normal to mildly elevated filling pressures. Moderate aortic valve calcification. Mild aortic valve stenosis, mean gradient 7.3 mmHg, SETH 2.7 cm squared. No aortic valve regurgitation. There is no pericardial effusion. Right atrial pressure is around 5 mm of mercury. Saurabh River MD (Electronically Signed) Final Date: 30 October 2024 13:28 S
[2024-10-29] MEDS: hyDRALAzine 20 mg/mL INJ 1 mL 10 MG IVP (18:03)
[2024-10-29] MEDS: hyDRALAzine 25 mg Tablet PO ×2 (18:05→21:03)
[2024-10-29 18:19] LABS: Troponin(5th) Baseline 10 ng/L (0-10)
[2024-10-29] MEDS: famotidine 20 mg/2 mL INJ IVP (19:08)
[2024-10-29] MEDS: lactated ringers 1,000 ML 100 ML IV (19:16)
[2024-10-29] MEDS: magnesium sulfate premix 1 GM/100 ML PIGGYBACK IV (19:18)
--- NOTE | 2024-10-29 19:31 | ECG_ITS ---
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
[2024-10-29] MEDS: ondansetron 2 mg/ML SDV 2 mL 4 MG IVP (19:52)
[2024-10-29] MEDS: metoprolol tartrate 25 mg Tablet PO (21:03)
[2024-10-29 21:41] LABS: Potassium 3.2 mmol/L (3.5-5.1)
--- NOTE | 2024-10-29 22:15 | ECG_ITS ---
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1990 Requested By: Jazzy Hamilton Order Number: [id number] Reading MD: FERNANDO MYRICK Measurements Intervals [place] Rate: 76 P: 74 VA: 136 QRS: 66 QRSD: 101 T: 64 QT: 433 QTc: 489 Interpretive Statements SINUS RHYTHM WITH FREQUENT VENTRICULAR PREMATURE COMPLEXES IN A BIGEMINAL PATTERN POSSIBLE LEFT ATRIAL ENLARGEMENT [-0.1mV P-WAVE IN V1/V2] ABNORMAL RHYTHM ECG Compared to ECG 10/29/2024 19:31:21 No significant changes Electronically Signed On 11-01-2024 21:01:29 CDT by FERNANDO MYRICK [id number] [id number]
[2024-10-29] MEDS: nicardipine 20 MG/200 ML PREMIX 50 MG IV (22:48)
[2024-10-29] MEDS: potassium chloride ER 20 mEq Tablet 40 MEQ PO (22:59)
[2024-10-29 23:04] LABS: Adenovirus Not Detected (NOT DETECT); Chlamydia Pneumoniae Not Detected (NOT DETECT); Coronavirus 229E,HKU1,NL63,OC4 Not Detected (NOT DETECT); Human Metapneumovirus Not Detected (NOT DETECT); Human Rhinovirus/Enterovirus Not Detected (NOT DETECT); Influenza A Not Detected (NOT DETECT); Influenza A H1 Not Detected (NOT DETECT); Influenza A H1-2009 Not Detected (NOT DETECT); Influenza A H3 Not Detected (NOT DETECT); Influenza B Not Detected (NOT DETECT); Mycoplasma Pneumoniae Not Detected (NOT DETECT); Parainfluenza Virus Type 1 Not Detected (NOT DETECT); Parainfluenza Virus Type 2 Not Detected (NOT DETECT); Parainfluenza Virus Type 3 Not Detected (NOT DETECT); Parainfluenza Virus Type 4 Not Detected (NOT DETECT); Respiratory Syncytial Virus A Not Detected (NOT DETECT); Respiratory Syncytial Virus B Not Detected (NOT DETECT); SARS-COV-2 Not Detected (NOT DETECT)
--- NOTE | 2024-10-29 23:53 | ECG_ITS ---
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
[2024-10-30] VITALS (162 sets, daily range): BP systolic 101–191; BP diastolic 59–111; PULSE 51–116; RESP 10–30; TEMP 37–37.1; O2SAT 93–100
[2024-10-30] MEDS: nicardipine 20 MG/200 ML PREMIX 25 MG IV ×2 (03:16→08:00)
[2024-10-30] MEDS: acetaminophen 500 mg Tablet 1000 MG PO (04:12)
[2024-10-30 04:31] LABS: Basophils % 0.2 %; Hematocrit 47.8 % (36-47); Lymphocytes # 3.5 10^3/uL (0.8-4.8); Lymphocytes % 17.3 %; Mean Corpuscular HGB Conc 33.3 g/dL (30-55); Mean Corpuscular Hemoglobin 28.2 pg (27-33); Mean Corpuscular Volume 84.8 fl (85-98); Mean Platelet Volume 9.2 fL (7.4-10.4); Monocytes # 1.2 10^3/uL (0.2-0.9); Monocytes % 6.1 %; Neutrophils # 15.22 10^3/uL (1.8-7.7); Nucleated Red Blood Cells % 0 %; Platelet Count 429 10^3/cmm (157-399); Red Blood Count 5.64 10^6/uL (3.85-5.65); Red Cell Distribution Width 12.6 % (12.1-15.1)
[2024-10-30 04:52] LABS: Troponin 5 6HR 16.43 ng/L (0-10)
[2024-10-30 04:54] LABS: Alanine Aminotransferase 16 U/L (0-33); Albumin Level 4.5 g/dL (3.5-5.2); Alkaline Phosphatase 138 U/L (35-105); Anion Gap 18.8 (5-19); Aspartate Amino Transferase 14 U/L (0-32); Blood Urea Nitrogen 5 mg/dL (6-20); Calcium 9.4 mg/dL (8.5-10.5); Carbon Dioxide 24 mmol/L (22-29); Chloride 104 mmol/L (98-107); Creatinine Clr Calc Pharmacy 172.8971; Globulin 2.8 g/dL (1.3-4.6); Glomerular Filtration Rate 140.4 mL/min (90-130); Glucose 145 mg/dL (65-115); Osmolality Calculated 296 mOsm/kg (285-295); Potassium 3.8 mmol/L (3.5-5.1); Sodium 143 mmol/L (136-145); Total Bilirubin 0.9 mg/dL (0.15-1.2); Total Protein 7.3 g/dL (6.6-8.7)
[2024-10-30 04:56] LABS: Troponin 5 6HR Delta 6.43 ng/L (0-12)
[2024-10-30] MEDS: famotidine 20 mg/2 mL INJ IVP ×2 (05:48→17:58)
[2024-10-30] MEDS: lactated ringers 1,000 ML 100 ML IV ×2 (08:02→17:59)
[2024-10-30] MEDS: hyDRALAzine 25 mg Tablet PO (08:03)
[2024-10-30] MEDS: cefTRIAXone 1,000 mg SDV 1000 MG IVP (08:03)
[2024-10-30] MEDS: potassium chloride ER 20 mEq Tablet 40 MEQ PO (08:03)
[2024-10-30] MEDS: metoprolol tartrate 25 mg Tablet PO (08:03)
--- NOTE | 2024-10-30 11:26 | P.PN_ITS ---
Subjective 2 Subjective: No acute overnight events noted. Seen her at bedside this morning. She feels better today. Denies any complaint of nausea/vomiting or abdominal pain. Medications: Reviewed: Yes Vitals/I&O/Wt Last Vital Signs Temp 98.7 F 10/30/24 08:55 Pulse 70 10/30/24 08:55 Resp 21 H 10/30/24 08:55 BP 130/72 10/30/24 08:55 Pulse Ox 97 10/30/24 08:55 O2 Del Method Room Air 10/30/24 08:55 10/29/24 10/30/24 10/30/24 22:59 06:59 14:59 Intake Total 2220 / 2220 625.833 / 2845.833 1337.083 / 1337.083 Balance 2220 / 2220 625.833 / 2845.833 1337.083 / 1337.083 Weight last 48 hrs Weight 79.8 kg Weight 78.5 kg Weight 77.111 kg Physical Exam 2 Narrative: She is alert awake oriented x 3 Chest clear to auscultation bilaterally Cardiovascular normal heart sounds no murmurs Abdomen soft non tender, nondistended normal bowel sounds Extremities no edema noted bilateral lower extremity Data 10/30/24 03:59 10/30/24 03:59 A&P Assessment and plan (1) Nausea and vomiting: (2) Hypertensive urgency: (3) Hypokalemia: Plan Rowan Howell is a 34 year old female with past medical history of hypertension, substance abuse, on probation, presented with complaint of nausea and vomiting associated with diffuse abdominal pain since 2 days and found to have hypertensive urgency in the ER with blood pressure of 228/102. #Hypertensive urgency-patient reports taking hydralazine in the past for high blood pressure. Blood pressure found to be oh 228/102, 198/106 in ED Received IV hydralazine 20 mg x 1 in ED Will do IV hydralazine 20 mg x 1 dose now If still hypertensive, will probably need cardene drip. P.o. hydralazine 25 mg [address] head negative for acute findings. EKG showed sinus rhythm with bigeminy, no acute ST-T changes Received k-rider x 1 in ED will do iv potassium 32hcps4 and magnesium sulphate 1gm x1 now. Telemetry monitoring Check 2D echo Check troponins #Abdominal pain-likely secondary to nausea and vomiting secondary to flulike syndrome/substance abuse Had WBC count of 16.0 likely reactive Will hold off on antibiotics for now Will do IV Zofran 4 mg every 6 hours as needed for nausea and vomiting IV Compazine 10 mg every 6 hours as needed Will do IV fluids lactated Ringer at 75 cc/h CT abdomen pelvis negative for acute findings. UA negative U tox positive for marijuana #Hypokalemia-likely secondary to vomiting Potassium 2.7, replaced in ER Follow-up labs in a.m. DVT prophylaxis with SCD GI prophylaxis with IV Pepcid 20 mg twice daily CODE STATUS discussed with patient, she is full code 10/30/24 Blood pressure controlled. Hypertensive urgency resolved. Will start tapering Cardene drip Started on p.o. hydralazine 25 mg 3 times daily and p.o. metoprolol 25 mg twice daily for bigeminy Abdominal pain/nausea and vomiting resolved Potassium 3.8, replaced 3 sets of troponins was 10, 13, 16 Repeat EKG showed sinus rhythm with QTc 532, no bigeminy or no acute ST-T changes Leukocytosis, WBCs trending up to 20, likely reactive, no obvious source of infection Will repeat UA Educated and counseled about marijuana use, smoking and alcohol. Patient understands and agrees with plan of care. Continue to monitor in ICU PDMP PDMP Reviewed: Not Reviewed Attestations 2 Medical Necessity Statement*: She needs continued hospitalization for management of hypertensive urgency. Anticipating discharge in 24 hours Time Spent in Patient Care: 20 minutes Coding Level of Care Code Acute Code for Chg Fwd Diagnoses Nausea and vomiting R11.2 Hypertensive urgency I16.0 Hypokalemia E87.6 Time Spent (min) 20
[2024-10-30 13:53] LABS: Bilirubin Urine Negative (Negative); Blood Urine Negative (Negative); Glucose Urine UA 1+ (Normal); Ketones Urine Trace (Negative); Leukocyte Esterase Urine Negative (Negative); Nitrate Urine Negative (Negative); Protein Urine Trace (Negative); Urine Appearance Cloudy (CLEAR); Urine Color Yellow (Yellow)
[2024-10-30 13:57] LABS: Add Urine Microscopic? YES; Bacteria Urine Trace /hpf; Hyaline Casts Urine 0-4 /lpf; RBC Urine 0-2 /hpf (0-2); Squamous Epithelial Cell Urine 0-5 /hpf (0-5); WBC Urine 0-5 /hpf (0-5)
--- NOTE | 2024-10-30 18:22 | PC.NURSE ---
Shift note: Overall uneventful shift. Patient rested in bed, on room air, Blood pressures as documented. Educated patient on low sodium diet and HTN. Patient consumed [employer] brought by visitor. Education to continue. Patient ambulated to bathroom several times throughout shift with no assistance. Patient denies pain, N/V, discomfort. Patient has no questions or requests at this time.
[2024-10-31] VITALS (54 sets, daily range): BP systolic 128–174; BP diastolic 67–93; PULSE 54–90; RESP 12–29; TEMP 37.2; O2SAT 97–100
[2024-10-31] MEDS: famotidine 20 mg/2 mL INJ IVP (06:27)
[2024-10-31] MEDS: lactated ringers 1,000 ML 100 ML IV (06:28)
[2024-10-31] MEDS: metoprolol tartrate 25 mg Tablet 12.5 MG PO (08:48)
--- NOTE | 2024-10-31 08:52 | PM.DCS ---
Discharge Providers Date of Admission: 10/29/24 18:22 Date of Discharge: October 31, 2024 Attending Provider at Admission: Jazzy Hamilton MD Attending Provider at Discharge: Jazzy Hamilton MD Primary Care Provider: Betina Lemon Diagnoses at Discharge Discharge Diagnosis (1) Nausea and vomiting: Status: Acute (2) Hypertensive urgency: Status: Acute (3) Hypokalemia: Status: Acute Reason for Visit Reason for Visit: abd pain Brief History: Rowan Howell is a 34 year old female with past medical history of hypertension, substance abuse, on probation, presented with complaint of nausea and vomiting since 2 days. She reports she has not been eating and drinking well. She thinks she must have flu, has been suffering from cold and cough since 3 to 4 days. Nausea and vomiting is associated with diffuse crampy abdominal pain, no aggravating or relieving factors. In ER she was found to be hypertensive with blood pressure of 228/102, 198/104. Hospital Course Hospital Course #Hypertensive urgency-patient reports taking hydralazine in the past for high blood pressure. Blood pressure found to be oh 228/102, 198/106 in ED Received IV hydralazine 20 mg x 1 in ED Will do IV hydralazine 20 mg x 1 dose now If still hypertensive, will probably need cardene drip. P.o. hydralazine 25 mg [address] head negative for acute findings. EKG showed sinus rhythm with bigeminy, no acute ST-T changes Received k-rider x 1 in ED will do iv potassium [id number] and magnesium sulphate 1gm x1 now. Telemetry monitoring Check 2D echo Check troponins #Abdominal pain-likely secondary to nausea and vomiting secondary to flulike syndrome/substance abuse Had WBC count of 16.0 likely reactive Will hold off on antibiotics for now Will do IV Zofran 4 mg every 6 hours as needed for nausea and vomiting IV Compazine 10 mg every 6 hours as needed Will do IV fluids lactated Ringer at 75 cc/h CT abdomen pelvis negative for acute findings. UA negative U tox positive for marijuana #Hypokalemia-likely secondary to vomiting Potassium 2.7, replaced in ER Follow-up labs in a.m. Blood pressure controlled. Hypertensive urgency resolved. Will start tapering Cardene drip Started on p.o. hydralazine 25 mg 3 times daily and p.o. metoprolol 25 mg twice daily for bigeminy Abdominal pain/nausea and vomiting resolved Potassium 3.8, replaced 3 sets of troponins was 10, 13, 16 Repeat EKG showed sinus rhythm with QTc 532, no bigeminy or no acute ST-T changes Leukocytosis, WBCs trending up to 20, likely reactive, no obvious source of infection Will repeat UA Educated and counseled about marijuana use, smoking and alcohol. Patient understands and agrees with plan of care. She is doing well, off cardene drip will discharge her home with po hydralazine 25mg, and po metoprolol 12.5 Physical Exam Narrative: She is alert awake oriented x 3 Chest clear to auscultation bilaterally Cardiovascular normal heart sounds no murmurs Abdomen soft non tender, nondistended normal bowel sounds Extremities no edema noted bilateral lower extremity Discharge Data Studies Completed and Pending Completed Studies During Hospitalization Category Date Time Status CT abdomen pelvis w con* [id number] Stat Cat Scan 10/29/24 13:[address] head wo con* [id number] Stat Cat Scan 10/29/24 16:43 Completed CV. echo complete* [id number] Stat Ultrasound 10/29/24 17:52 Completed Pending at discharge Category Date Time Status BMP [Basic Metabolic Panel] AM LABS Lab 10/31/24 04:00 Ordered CBC Auto Diff [Complete Blood Count w/Auto] AM LABS Lab 10/31/24 04:00 Ordered Magnesium AM LABS Lab 10/31/24 04:00 Ordered Radiology Impressions Abdomen/Pelvis CT 10/29/24 13:23 IMPRESSION: 1. No CT evidence of acute intra-abdominal or pelvic pathology. 2. Additional findings, as above. Head CT 10/29/24 16:[address]: 1[address] No [address] evidence of acute intracranial pathology. 2. Additional findings, as above. Laboratory Results WBC 20.00 10^3/uL (3.29-11.43) H 10/30/24 03:59 RBC 5.64 10^6/uL (3.85-5.65) 10/30/24 03:59 Hgb 15.90 g/dL (11.27-16.99) 10/30/24 03:59 Hct 47.8 % (36-47) H 10/30/24 03:59 MCV 84.8 fl (85-98) L 10/30/24 03:59 MCH 28.2 pg (27-33) 10/30/24 03:59 MCHC 33.3 g/dL (30-55) 10/30/24 03:59 RDW 12.6 % (12.1-15.1) 10/30/24 03:59 Plt Count 429 10^3/cmm (157-399) H 10/30/24 03:59 MPV 9.2 fL (7.4-10.4) 10/30/24 03:59 Neut % (Auto) 76.0 % 10/30/24 03:59 Lymph % (Auto) 17.3 % 10/30/24 03:59 [place] % (Auto) 6.1 % 10/30/24 03:59 Eos % (Auto) 0.0 % 10/30/24 03:59 Baso % (Auto) 0.2 % 10/30/24 03:59 Neut # (Auto) 15.22 10^3/uL (1.8-7.7) H 10/30/24 03:59 Lymph # (Auto) 3.5 10^3/uL (0.8-4.8) 10/30/24 03:59 [place] # (Auto) 1.2 10^3/uL (0.2-0.9) H 10/30/24 03:59 Eos # (Auto) 0.0 10^3/uL (0.0-0.8) 10/30/24 03:59 Baso # (Auto) 0.0 10^3/uL (0.0-0.1) 10/30/24 03:59 Nucleated RBC % (auto) 0 % 10/30/24 03:59 Nucleated RBCs # 0.0 /100WBC 10/30/24 03:59 Sodium 143 mmol/L (136-145) 10/30/24 03:59 Potassium 3.8 mmol/L (3.5-5.1) 10/30/24 03:59 Chloride 104 mmol/L (98-107) 10/30/24 03:59 Carbon Dioxide 24 mmol/L (22-29) 10/30/24 03:59 Anion Gap 18.8 (5-19) 10/30/24 03:59 BUN 5 mg/dL (6-20) L 10/30/24 03:59 Creatinine 0.5 mg/dL (0.5-0.9) 10/30/24 03:59 GFR Calculation 140.4 mL/min (90-130) H 10/30/24 03:59 Glucose 145 mg/dL (65-115) H 10/30/24 03:59 Calculated Osmolality 296 mOsm/kg (285-295) H 10/30/24 03:59 Calcium 9.4 mg/dL (8.5-10.5) 10/30/24 03:59 Magnesium 2.0 mg/dL (1.7-2.3) 10/30/24 03:59 Total Bilirubin 0.9 mg/dL (0.15-1.2) 10/30/24 03:59 AST 14 U/L (0-32) 10/30/24 03:59 ALT 16 U/L (0-33) 10/30/24 03:59 Alkaline Phosphatase 138 U/L (35-105) H 10/30/24 03:59 Troponin T Baseline 10 ng/L (0-10) 10/29/24 17:58 Troponin T 120 Minute 13.20 ng/L (0-10) H 10/29/24 19:44 Delta Troponin T 3.20 ABS# (0-10) 10/29/24 19:44 Troponin T Hi Sens 6Hr 16.43 ng/L (0-10) H 10/30/24 03:59 Troponin T Hi Sens 6Hr Delta 6.43 ng/L (0-12) 10/30/24 03:59 Total Protein 7.3 g/dL (6.6-8.7) 10/30/24 03:59 Albumin 4.5 g/dL (3.5-5.2) 10/30/24 03:59 Globulin 2.8 g/dL (1.3-4.6) 10/30/24 03:59 Lipase 17 U/L (13-60) 10/29/24 13:20 HCG, Qual Negative (Negative) 10/29/24 13:20 Urine Color Yellow (Yellow) 10/30/24 13:45 Urine Appearance Cloudy (CLEAR) A 10/30/24 13:45 Urine pH 7.0 (5-7) 10/30/24 13:45 Ur Specific [place] 1.010 (1.005-1.030) 10/30/24 13:45 Urine Protein Trace (Negative) A 10/30/24 13:45 Urine Glucose (UA) 1+ (Normal) H 10/30/24 13:45 Urine Ketones Trace (Negative) 10/30/24 13:45 Urine Blood Negative (Negative) 10/30/24 13:45 Urine Nitrate Negative (Negative) 10/30/24 13:45 Urine Bilirubin Negative (Negative) 10/30/24 13:45 Urine Urobilinogen 1.0 mg/dL (Negative) 10/30/24 13:45 Ur Leukocyte Esterase Negative (Negative) 10/30/24 13:45 Urine RBC 0-2 /hpf (0-2) 10/30/24 13:45 Urine WBC 0-5 /hpf (0-5) 10/30/24 13:45 Ur Squamous Epith Cells 0-5 /hpf (0-5) 10/30/24 13:45 Amorphous Sediment Not Reportable 10/30/24 13:45 Urine Bacteria Trace /hpf (NONE) 10/30/24 13:45 Hyaline Casts 0-4 /lpf H 10/30/24 13:45 Urine Opiates Screen Negative ng/mL (Negative) 10/29/24 13:08 Ur Barbiturates Screen Negative ng/mL (Negative) 10/29/24 13:08 Ur Phencyclidine Scrn Negative ng/mL (Negative) 10/29/24 13:08 Ur Amphetamines Screen Negative ng/mL (Negative) 10/29/24 13:08 U Benzodiazepines Scrn Negative ng/mL (Negative) 10/29/24 13:08 Urine Cocaine Screen Negative ng/mL (Negative) 10/29/24 13:08 U Marijuana (THC) Screen Positive ng/mL (Negative) H 10/29/24 13:08 Adenovirus (PCR) Not detected (NOT DETECT) 10/29/24 20:17 C. pneumoniae DNA (PCR) Not detected (NOT DETECT) 10/29/24 20:17 Coronavirus 229E (PCR) Not detected (NOT DETECT) 10/29/24 20:17 Human Metapneumovir PCR Not detected (NOT DETECT) 10/29/24 20:17 Influenza A (H1) PCR Not detected (NOT DETECT) 10/29/24 20:17 Influ A (H1/09) PCR Not detected (NOT DETECT) 10/29/24 20:17 Influenza A (H3) PCR Not detected (NOT DETECT) 10/29/24 20:17 Influenza Type A (PCR) Not detected (NOT DETECT) 10/29/24 20:17 Influenza Type B (PCR) Not detected (NOT DETECT) 10/29/24 20:17 M. pneumoniae (PCR) Not detected (NOT DETECT) 10/29/24 20:17 Parainfluenza 1 (PCR) Not detected (NOT DETECT) 10/29/24 20:17 Parainfluenza 2 (PCR) Not detected (NOT DETECT) 10/29/24 20:17 Parainfluenza 3 (PCR) Not detected (NOT DETECT) 10/29/24 20:17 Parainfluenza 4 (PCR) Not detected (NOT DETECT) 10/29/24 20:17 RSV Type A (PCR) Not detected (NOT DETECT) 10/29/24 20:17 RSV Type B (PCR) Not detected (NOT DETECT) 10/29/24 20:17 Entero/Rhino (PCR) Not detected (NOT DETECT) 10/29/24 20:17 SARS-CoV-2 (PCR) Not detected (NOT DETECT) 10/29/24 20:17 Vitals Last Vital Signs Temp 98.6 F 10/30/24 12:20 Pulse 65 10/31/24 06:00 Resp 25 H 10/31/24 05:30 BP 138/78 10/31/24 05:30 Pulse Ox 98 10/31/24 05:30 O2 Del Method Room Air 10/30/24 16:00 Discharge Plan Discharge Patient Disposition: Home Condition: Stable Prescriptions: New hydralazine 25 mg Tablet 25 mg PO DAILY 30 Days Qty: 30 0RF metoprolol tartrate 25 mg Tablet 12.5 mg PO BEDTIME 30 Days Qty: 30 0RF Continued ondansetron 4 mg tablet,disintegrating 4 mg PO Q8H PRN (Reason: nausea and vomiting) Qty: 14 0RF Discharge Orders: Discharge Order (Routine); Ordered 10/31/24 Ordered By: Jazzy Hamilton Referrals: Betina Lemon PA [Primary Care Provider] - Yamilka Diop MD [Referring] - 11/08/24 Discharge Diet: Cardiac Discharge Activity: Increase activity as tolerated Patient Instructions: Hypertension, Hypokalemia (DC), Opioid Safety Discharge Attestations Time Spent in Discharge Care*: less than 30 min Quality Metrics Clinical Quality Measures [ No reported AMI, CVA or VTE this stay] Coding Level of Care Code Acute Code for Chg Fwd Diagnoses Nausea and vomiting R11.2 Hypertensive urgency I16.0 Hypokalemia E87.6 Time Spent (min) 15
[2024-10-31] MEDS: hyDRALAzine 25 mg Tablet PO (09:09)
--- NOTE | 2024-10-31 09:24 | PC.NURSE ---
Written and verbal education provided to patient on discharge New medications, follow up appointments, taking blood pressure at home, diet modifications for K and NA. Patient verbalized understanding of education. Patient had no questions.
--- NOTE | 2024-10-31 09:26 | PC.NURSE ---
All belongings with patient at discharge including cellphone, dog warden, dog warden for ankle monitor, vape, snacks.
== END 2024-10-31 09:42 | disposition home or self-care (01) ==
LOC: ER 17:47 → ICU 18:23
PROVIDERS: Internal Medicine; Admitting Provider Internal Medicine; Emergency Provider Family Medicine; PCP Physician Assistant; Visit Provider Internal Medicine
DX: R11.2 Nausea with vomiting, unspecified (principal); I16.0 Hypertensive urgency; E87.6 Hypokalemia; F19.11 Other psychoactive substance abuse, in remission; F17.200 Nicotine dependence, unspecified, uncomplicated
CPT/HCPCS: 36415; 70450; 74177; 80053; 80306; 81001; 83690; 83735; 84132; 84484; 84703; 85025; 87486; 87581; 87633; 93005; 93306; 96365; 96366; 96367; 96374; 96375; 96376; 99285; G0378; J0360; J0696; J0780; J1885; J2405; J3475; J3480; J3490; J7030; J7120; J9999

== ENCOUNTER 2025-02-10 13:34 | Observation (INO) | payer BC, MEDICAID, SELFPAY ==
[2025-02-10] VITALS (8 sets, daily range): BP systolic 102–165; BP diastolic 67–111; PULSE 74–139; RESP 15–18; TEMP 36.6–36.7; O2SAT 97–100; BMI 25.8
--- OUTSIDE RECORDS SUMMARY | 2025-02-10 13:43 | XMS_ITS | Encounter Summary ---
Author Organization [employer] 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 Name Role Phone Unavailable Primary Care Provider Unavailabl e Encounter Details Date Type Department Care Team (Latest Contact Info) Description 05/28/2005 Outpatient Historical [address] [phone] Lindsey Garcia, [address] [place] [phone] ACUTE URI NOS (Primary Dx); ACNE VARIOLIFORMIS; PERS HX OF DISEASES NEC Social History Tobacco Use Types Packs/Day Years Used Date Smoking Tobacco: Never Assessed Comments Unknown Sex and Gender Information Value Date Recorded Sex Assigned at Not on file 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
--- OUTSIDE RECORDS SUMMARY | 2025-02-10 13:43 | XMS_ITS | Clinical Summary ---
Author Organization [employer] Address [address] Attn: Epic Prelude ADT [place]IA REEVES [id number] Care Team Providers Care Behavioral Health Case Manager Name Role Phone Unavailable Primary Care Provider Unavailabl e Immunizations Immunization Administration Dates Next Due (TDVAX)(7 YRS UP) TETANUS AN D DIPHTHERIA TOXOIDS, ADSORBED (2 LF OF TETANUS TOXOID AND 2 LF OF DIPHTHERIA TOXOID), 0.5ML (PF), IM 04/20/2004 Hepatitis B Vaccine 03/21/2003,11/15/2002 Social History Tobacco Use Types Packs/Day Years Used Date Smoking Tobacco: Never Assessed Comments Unknown Sex and Gender Information Value Date Recorded Sex Assigned at Not on file 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
--- NOTE | 2025-02-10 13:57 | XRR_ITS ---
PROCEDURE INFORMATION: Exam: XR Chest Exam date and time: 02/10/2025 1:59 PM Age: 34 years old Clinical indication: Other: Weakness TECHNIQUE: Imaging protocol: Radiologic exam of the chest. Views: 1 view. COMPARISON: CR XR chest 1V portable [id number] 05/28/2022 7:33 PM FINDINGS: Lungs: Unremarkable. No consolidation. Pleural spaces: Unremarkable. No pleural effusion. No pneumothorax. Heart/Mediastinum: Unremarkable. No cardiomegaly. Bones/joints: Unremarkable. XR/XR chest 1V portable [id number] IMPRESSION: No acute findings.
--- NOTE | 2025-02-10 13:59 | W.ED.SOB ---
HPI - SOB/Dyspnea General: Chief Complaint: Shortness of Breath/Dyspnea Stated Complaint: SOB Time Seen by Provider: 02/10/25 13:56 History of Present Illness: HPI Narrative: 34-year-old female with a history of polysubstance abuse who presents to the emergency room with worsening shortness of breath. She says she last took methamphetamine a few days ago and she also took some Suboxone. She has no known cardiac history. She says over the last couple days she has had some diarrhea and nausea. She is also noticed tachycardia. She is tachycardic on presentation and 130s. Said when she called the ambulance she had become so short of breath she could not get up. Related Data Previous Rx's ?Medication ?Instructions ?Recorded ondansetron 4 mg disintegrating 4 mg PO Q8H PRN nausea and 10/19/24 tablet vomiting #14 tabs Allergies Allergy/AdvReac Type Severity Reaction Status Date / Time No Known Allergies Allergy Verified 10/19/24 11:02 Review of Systems Narrative: Constitutional symptoms: Negative except as documented in HPI. Skin symptoms: Negative except as documented in HPI. Eye symptoms: Negative except as documented in HPI. ENMT symptoms: Negative except as documented in HPI. Respiratory symptoms: Negative except as documented in HPI. Cardiovascular symptoms: Negative except as documented in HPI. Gastrointestinal symptoms: Negative except as documented in HPI. Genitourinary symptoms: Negative except as documented in HPI. Musculoskeletal symptoms: Negative except as documented in HPI. Neurologic symptoms: Negative except as documented in HPI. Psychiatric symptoms: Negative except as documented in HPI. Endocrine symptoms: Negative except as documented in HPI. [facility] ED PFSH: Medical History (Updated 02/10/25 @ 16:45 by Nadya Padilla MD) No pertinent family history DDD (degenerative disc disease), lumbar Substance abuse ADHD Social History Smoking and tobacco/nicotine status: current every day tobacco/nicotine user Female Reproductive History: Date of last menstrual period: 02/10/25 Physical Exam Narrative: EXAM NARRATIVE: General: Alert, no acute distress. Skin: Warm, dry. Head: Normocephalic, atraumatic. Neck: Supple, trachea midline. Eye: Extraocular movements are intact. Ears, nose, mouth and throat: Tacky oral mucosa Cardiovascular: Regular, tachycardic, Normal peripheral perfusion. Respiratory: Lungs are clear to auscultation, respirations are non-labored, breath sounds are equal, Symmetrical chest wall expansion. Gastrointestinal: Soft, Nontender, Non distended Musculoskeletal: Normal ROM, no deformity. Neurological: Alert and oriented, No focal neurological deficit observed. Psychiatric: Cooperative, appropriate mood & affect. Course Vital Signs: Vital signs: Vital Signs Temperature 98.1 F 02/10/25 13:40 Pulse Rate 105 H 02/10/25 16:37 Respiratory Rate 18 02/10/25 16:37 Blood Pressure 157/111 02/10/25 16:37 Pulse Oximetry 100 02/10/25 16:37 Oxygen Delivery Me thod Room Air 02/10/25 16:37 MDM - SOB/Dyspnea Medical Decision Making Differential diagnosis for patient with shortness of breath includes but is not limited to and based on the above HPI, review of systems and physical exam: Pneumonia. Bronchitis. Asthma or COPD with acute exacerbation. Acute coronary syndrome / NC. Pulmonary embolism. Anxiety. Congestive heart failure. Viral infections including influenza and Covid-19. Atrial fibrillation. Anxiety. Pleural effusion. Pneumothorax. Orders placed to evaluate differential diagnosis based on the above differential, HPI and physical exam EKG: Time 1411. Rate 82. Normal sinus rhythm, nonspecific ST-T changes, no ectopy, normal NC & QRS intervals, This was reviewed and interpreted by myself the ER physician at 1415 Repeat EKG: Time 1622. Rate 89. Normal sinus rhythm, nonspecific ST-T changes, no ectopy, normal NC & QRS intervals, This was reviewed and interpreted by myself the ER physician at 1625 Cardiac monitoring: Patient has had some sinus tachycardia on on cardiac monitoring. She initially was in the 130s. She has quite often been around 115. Cardiac monitoring was ordered and reviewed and interpreted by myself the emergency room physician. CTA of the chest: No evidence of PE. Possible left ventricular hypertrophy. They recommend echo. This was reviewed and interpreted by myself the emergency room physician. I also reviewed the radiology report. Lab Review: Laboratory results were reviewed and interpreted by myself the emergency room physician. Patient has some leukocytosis with white count of 20,000. However urinalysis is negative for infection. Pro-Zachary is negative. Lactic acid is mildly elevated at 3. I reviewed the patient's medical record. Reexamination: Patient remained stable. No increased work of breathing. No altered mental status. No focal motor deficits. We discussed findings. She says she has been doing methamphetamine for some time now. We discussed that if she continues this may cause her to have heart failure and could eventually kill her. Consultation: I spoke with Dr. Erickson who is on-call for cardiology. He agrees that the patient likely would benefit from monitoring and an echocardiogram. Likely LVH secondary to methamphetamine use. Also related to the tachycardia which is also tied in with her methamphetamine use. I feel like given her leukocytosis and an injection history blood cultures need to be followed and an echocardiogram should be done. Also cardiac monitoring to assure that her heart rate stays down. Assessment and plan: Dehydration Polysubstance abuse Possible new onset heart failure Tachycardia ?Normal saline bolus in the emergency room. -I discussed the patient with the hospitalist on-call who is admitting the patient. - Discussed findings and plan with patient. Answered any questions. - All laboratory values were reviewed and interpreted personally by myself, the ER physician - All imaging was reviewed and interpreted personally by myself, the ER physician. - Evaluation and treatment of this problem were appropriate in the emergency setting Lab Data 02/10/25 13:21 02/10/25 13:21 Labs/Radiology: Radiology Impressions Chest CTA 02/10/25 15:01 IMPRESSION: 1. No evidence for pulmonary embolism. 2. Possible left ventricular wall hypertrophy, which can be assessed with echocardiography. Laboratory Results WBC 20.78 10^3/uL (3.29-11.43) H 02/10/25 13:21 RBC 6.09 10^6/uL (3.85-5.65) H 02/10/25 13:21 Hgb 17.70 g/dL (11.27-16.99) H 02/10/25 13:21 Hct 51.1 % (36-47) H 02/10/25 13:21 MCV 83.9 fl (85-98) L 02/10/25 13:21 MCH 29.1 pg (27-33) 02/10/25 13:21 MCHC 34.6 g/dL (30-55) 02/10/25 13:21 RDW 13.2 % (12.1-15.1) 02/10/25 13:21 Plt Count 491 10^3/cmm (157-399) H 02/10/25 13:21 MPV 9.4 fL (7.4-10.4) 02/10/25 13:21 Neut % (Auto) 72.5 % 02/10/25 13:21 Lymph % (Auto) 21.2 % 02/10/25 13:21 [place] % (Auto) 5.7 % 02/10/25 13:21 Eos % (Auto) 0.1 % 02/10/25 13:21 Baso % (Auto) 0.2 % 02/10/25 13:21 Neut # (Auto) 15.05 10^3/uL (1.8-7.7) H 02/10/25 13:21 Lymph # (Auto) 4.4 10^3/uL (0.8-4.8) 02/10/25 13:21 [place] # (Auto) 1.2 10^3/uL (0.2-0.9) H 02/10/25 13:21 Eos # (Auto) 0.0 10^3/uL (0.0-0.8) 02/10/25 13:21 Baso # (Auto) 0.0 10^3/uL (0.0-0.1) 02/10/25 13:21 Nucleated RBC % (auto) 0 % 02/10/25 13:21 Nucleated RBCs # 0.0 /100WBC 02/10/25 13:21 Specimen Type Arterial 02/10/25 14:18 Sample Site Radial, left 02/10/25 14:18 ABG pH 7.54 (7.35-7.45) H 02/10/25 14:18 ABG pCO2 33.0 mmHg (35-45) L 02/10/25 14:18 ABG pO2 88.9 mmHg (80.0-100.0) 02/10/25 14:18 ABG PO2/FiO2 Ratio 423 02/10/25 14:18 ABG HCO3 28.1 mmol/L (22-26) H 02/10/25 14:18 ABG O2 Saturation 98.2 02/10/25 14:18 ABG Base Excess 5.9 mmol/L (-2.0-2.0) H 02/10/25 14:18 Kaleb Test Pos 02/10/25 14:18 A-a O2 Gradient 2.5 mmHg (5-10) L 02/10/25 14:18 Hematocrit 53.4 % (37-47) H 02/10/25 14:18 Hgb O2 Saturation 96.2 % (95-100) 02/10/25 14:18 Carboxyhemoglobin 1.2 %THgb (0.4-20.1) 02/10/25 14:18 Methemoglobin 0.8 % (0.4-1.5) 02/10/25 14:18 Total Hemoglobin 17.4 g/dL (12-16) H 02/10/25 14:18 Sodium 135.0 mmol/L (131-143) 02/10/25 14:18 Potassium 3.1 mmol/L (3.5-5.0) L 02/10/25 14:18 Glucose 154.0 mg/dL (70-115) H 02/10/25 14:18 Ionized Calcium 1.1 mmol/L (1.1-1.4) 02/10/25 14:18 O2 Delivery Device Room air 02/10/25 14:18 FiO2 21.0 % 02/10/25 14:18 Costume Shop Manager ID Amh 02/10/25 14:18 Sodium 137 mmol/L (136-145) 02/10/25 13:21 Potassium 3.5 mmol/L (3.5-5.1) 02/10/25 13:21 Chloride 94 mmol/L (98-107) L 02/10/25 13:21 Carbon Dioxide 23 mmol/L (22-29) 02/10/25 13:21 Anion Gap 23.5 (5-19) H 02/10/25 13:21 BUN 16 mg/dL (6-20) 02/10/25 13:21 Creatinine 0.7 mg/dL (0.5-0.9) 02/10/25 13:21 GFR Calculation 95.2 mL/min (90-130) 02/10/25 13:21 Glucose 140 mg/dL (65-115) H 02/10/25 13:21 Calculated Osmolality 287 mOsm/kg (285-295) 02/10/25 13:21 Lactic Acid 3.0 mmol/L (0.5-2.2) H 02/10/25 13:21 Calcium 9.7 mg/dL (8.5-10.5) 02/10/25 13:21 Total Bilirubin 1.7 mg/dL (0.15-1.2) H 02/10/25 13:21 AST 18 U/L (0-32) 02/10/25 13:21 ALT 16 U/L (0-33) 02/10/25 13:21 Alkaline Phosphatase 131 U/L (35-105) H 02/10/25 13:21 Troponin T Baseline 45 ng/L (0-10) H 02/10/25 13:21 Troponin T 120 Minute 41.59 ng/L (0-10) H 02/10/25 15:05 Delta Troponin T -3.41 ABS# (0-10) L 02/10/25 15:05 C-Reactive Protein 8.0 mg/L (0.0-4.9) H 02/10/25 13:21 NT-Pro-B Natriuret Pep 4809 pg/mL (0-125) H 02/10/25 13:21 Total Protein 7.7 g/dL (6.6-8.7) 02/10/25 13:21 Albumin 4.4 g/dL (3.5-5.2) 02/10/25 13:21 Globulin 3.3 g/dL (1.3-4.6) 02/10/25 13:21 Procalcitonin 0.05 ng/mL (0-0.5) 02/10/25 13:21 HCG, Qual Negative (Negative) 02/10/25 13:21 Urine Color Yellow (Yellow) 02/10/25 15:31 Urine Appearance Clear (CLEAR) 02/10/25 15:31 Urine pH 6.0 (5-7) 02/10/25 15:31 Ur Specific [place] 1.015 (1.005-1.030) 02/10/25 15:31 Urine Protein 1+ (Negative) A 02/10/25 15:31 Urine Glucose (UA) Negative (Normal) 02/10/25 15: Urine Ketones Trace (Negative) 02/10/25 15:31 Urine Blood Trace (Negative) A 02/10/25 15:31 Urine Nitrate Negative (Negative) 02/10/25 15:31 Urine Bilirubin Negative (Negative) 02/10/25 15:31 Urine Urobilinogen 1.0 mg/dL (Negative) 02/10/25 15:31 Ur Leukocyte Esterase Negative (Negative) 02/10/25 15:31 Urine RBC 0-2 /hpf (0-2) 02/10/25 15:31 Urine WBC 0-5 /hpf (0-5) 02/10/25 15:31 Ur Squamous Epith Cells 0-5 /hpf (0-5) 02/10/25 15:31 Amorphous Sediment Not Reportable 02/10/25 15:31 Urine Bacteria None seen /hpf (NONE) 02/10/25 15:31 Hyaline Casts 7.01 /lpf 02/10/25 15:31 Urine Opiates Screen Negative ng/mL (Negative) 02/10/25 15:31 Ur Barbiturates Screen Negative ng/mL (Negative) 02/10/25 15:31 Ur Phencyclidine Scrn Negative ng/mL (Negative) 02/10/25 15:31 Ur Amphetamines Screen Positive ng/mL (Negative) H 02/10/25 15:31 U Benzodiazepines Scrn Negative ng/mL (Negative) 02/10/25 15:31 Urine Cocaine Screen Negative ng/mL (Negative) 02/10/25 15:31 U Marijuana (THC) Screen Positive ng/mL (Negative) H 02/10/25 15:31 Influenza A (PCR) Negative (Negative) 02/10/25 14:00 Influenza Type B (PCR) Negative (Negative) 02/10/25 14:00 RSV (PCR) Negative (Negative) 02/10/25 14:00 SARS-CoV-2 (PCR) Negative (Negative) 02/10/25 14:00 All radiology interpretation(s) finalized by discharge Discharge Plan Discharge Patient Disposition: Placed in Observation Clinical Impression: Polysubstance abuse, Tachycardia, Congestive heart failure Coding Level of Care Code ED Dental Receptionist for Adrianna Grier
[2025-02-10 14:10] LABS: Hematocrit 51.1 % (36-47); Hemoglobin 17.70 g/dL (11.27-16.99); Mean Corpuscular HGB Conc 34.6 g/dL (30-55); Mean Corpuscular Hemoglobin 29.1 pg (27-33); Mean Corpuscular Volume 83.9 fl (85-98); Nucleated Red Blood Cells % 0 %; Platelet Count 491 10^3/cmm (157-399); Red Blood Count 6.09 10^6/uL (3.85-5.65); White Blood Count 20.78 10^3/uL (3.29-11.43)
--- NOTE | 2025-02-10 14:11 | ECG_ITS ---
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 Measurements Intervals [place] Rate: 82 P: 69 MT: 130 QRS: 74 QRSD: 90 T: 198 QT: 373 QTc: 436 Interpretive Statements SINUS RHYTHM ST DEVIATION AND MODERATE T-WAVE ABNORMALITY, CONSIDER ANTEROLATERAL ISCHEMIA [-0.1+ mV T-WAVE IN V3-V6] Compared to ECG 10/30/2024 03:47:55 T-wave abnormality now present Possible ischemia now present Prolonged QT interval no longer present Electronically Signed On 02-11-2025 13:51:40 CDT by Yvonne Erickson M.D. [email or web address] [id number]
[2025-02-10 14:29] LABS: Lactic Sepsis W/Reflex 3.0 mmol/L (0.5-2.2)
[2025-02-10 14:30] LABS: ABG PCO2 33.0 mmHg (35-45); ABG PH Result 7.54 (7.35-7.45); Alveolar-Arterial Oxygen Gradi 2.5 mmHg (5-10); Arterial Blood Gas Hematocrit 53.4 % (37-47); Blood Gas Allen Test Pos; Blood Gas Operator Identificat AMH; Blood Gas Sample Site Radial, left; Blood Gas Sample Type Arterial; Carboxyhemoglobin 1.2 %THgb (0.4-20.1); Glucose Level-ABG 154.0 mg/dL (70-115); HCO3 ABG 28.1 mmol/L (22-26); Ionized Calcium Level - ABG 1.1 mmol/L (1.1-1.4); Methemoglobin 0.8 % (0.4-1.5); Oxygen Saturation ABG 98.2; PO2 ABG 88.9 mmHg (80.0-100.0); PO2 FiO2 Ratio Arterial Blood 423; Potassium Level - ABG 3.1 mmol/L (3.5-5.0); Sodium Level - ABG 135.0 mmol/L (131-143)
[2025-02-10 14:30] LABS: Troponin(5th) Baseline 45 ng/L (0-10)
[2025-02-10 14:38] LABS: HCG, Serum Qual Negative (Negative)
[2025-02-10 14:47] LABS: NT Pro B Type Natriuretic Pept 4809 pg/mL (0-125); Procalcitonin 0.05 ng/mL (0-0.5)
[2025-02-10 14:59] LABS: Alanine Aminotransferase 16 U/L (0-33); Albumin Level 4.4 g/dL (3.5-5.2); Alkaline Phosphatase 131 U/L (35-105); Anion Gap 23.5 (5-19); Aspartate Amino Transferase 18 U/L (0-32); Blood Urea Nitrogen 16 mg/dL (6-20); Calcium 9.7 mg/dL (8.5-10.5); Carbon Dioxide 23 mmol/L (22-29); Chloride 94 mmol/L (98-107); Creatinine Clr Calc Pharmacy 118.4638; Globulin 3.3 g/dL (1.3-4.6); Glucose 140 mg/dL (65-115); Osmolality Calculated 287 mOsm/kg (285-295); Potassium 3.5 mmol/L (3.5-5.1); Sodium 137 mmol/L (136-145); Total Protein 7.7 g/dL (6.6-8.7)
--- NOTE | 2025-02-10 15:01 | CTR_ITS ---
PROCEDURE INFORMATION: Exam: CTA Chest With Contrast Exam date and time: 02/10/2025 3:43 PM Age: 34 years old Clinical indication: Shortness of breath; Additional info: Tachycardia, SOB, TECHNIQUE: Imaging protocol: Computed tomographic angiography of the chest with contrast. Exam focused on the arteries. 3D rendering (Not supervised by radiologist): MIP and/or 3D reconstructed images were created by the technologist. Radiation optimization: All CT scans at this facility use at least one of these dose optimization techniques: automated exposure control; mA and/or kV adjustment per patient size (includes targeted exams where dose is matched to clinical indication); or iterative reconstruction. Contrast material: OMNI 350; Contrast volume: 70 ml; Contrast route: INTRAVENOUS (IV); COMPARISON: CR XR chest 1V portable [id number] 02/10/2025 1:59 PM RADIATION DOSE METRICS: Total DLP (mGy-cm): 284.18 FINDINGS: Pulmonary arteries: Respiratory motion artifact obscures some left lower lobe subsegmental arteries. There is otherwise no evidence for pulmonary embolism. Aorta: Aortic caliber is within normal limits. Aorta enhancement is suboptimal due to the phase of bolus timing. Lungs: The lungs are clear. Pleural spaces: Pleural spaces are clear. No pneumothorax. Heart: Normal cardiac chamber size. Prominent left ventricular wall thickness, suggesting hypertrophy. A small amount of pericardial fluid is present anteriorly. Lymph nodes: No lymph node enlargement. Diaphragm: There is a small hiatal hernia. Liver: Hypodensity in the medial segment of the left lobe of the liver most likely represents focal fatty infiltration. Bones/joints: Unremarkable. No acute fracture. Soft tissues: Unremarkable. CT/CT angio chest PE protcl [id number] IMPRESSION: 1. No evidence for pulmonary embolism. 2. Possible left ventricular wall hypertrophy, which can be assessed with echocardiography.
[2025-02-10 15:07] LABS: Respiratory Syncytial Virus Ce NEGATIVE (Negative); SARS-CoV-2 PCR NEGATIVE (Negative)
[2025-02-10 15:40] LABS: Glucose Urine UA Negative (Normal); Nitrate Urine Negative (Negative); Specific Gravity, Urine 1.015 (1.005-1.030)
[2025-02-10] MEDS: iohexol 350 mg/mL 500 mL Btl (per mL) IV (15:48)
[2025-02-10 15:49] LABS: PCP Screen Urine Negative (Negative)
[2025-02-10 15:53] LABS: Troponin 5 2HR 41.59 ng/L (0-10)
[2025-02-10 15:54] LABS: Reflex Lactate Order REFLEX LACTIC ORDERD
[2025-02-10 15:57] LABS: Troponin 5 2HR Delta -3.41 ABS# (0-10)
--- NOTE | 2025-02-10 16:22 | ECG_ITS ---
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 Measurements Intervals [place] Rate: 89 P: 72 DC: 131 QRS: 74 QRSD: 90 T: 198 QT: 363 QTc: 442 Interpretive Statements SINUS RHYTHM ST DEVIATION AND MODERATE T-WAVE ABNORMALITY, CONSIDER ANTEROLATERAL ISCHEMIA [-0.1+ mV T-WAVE IN V3-V6] Compared to ECG 02/10/2025 14:11:26 No significant changes Electronically Signed On 02-11-2025 14:02:27 CDT by Yvonne Erickson M.D. [email or web address] [id number]
[2025-02-10 17:10] LABS: Lactic Acid level (Lactate) 2.5 mmol/L (0.5-2.2)
[2025-02-10] MEDS: heparin 5,000 unit/mL INJ 1 mL 5000 UNIT SUBCUT (17:51)
[2025-02-10] MEDS: pantoprazole 40 mg SDV IVP (17:51)
--- NOTE | 2025-02-10 18:20 | PM.HP ---
Providers/Chief Complaint Admitting Physician: Amor Lynn MD Primary Care Provider: Betina Lemon Chief Complaint: SOB History of Present Illness Rowan Howell is a 34 year old female Medications/Allergies Home Medications ?Medication ?Instructions ?Recorded ?Confirmed ?Last Taken ?Type No Known Home Medications 02/10/25 02/10/25 Unknown History Allergies Allergy/AdvReac Type Severity Reaction Status Date / Time No Known Allergies Allergy Verified 10/19/24 11:02 PFSH Acute PFSH: Medical History (Updated 02/10/25 @ 18:22 by Amor Lynn MD) No pertinent family history DDD (degenerative disc disease), lumbar Substance abuse ADHD Social History Smoking and tobacco/nicotine status: current every day tobacco/nicotine user Female Reproductive History: Date of last menstrual period: 02/10/25 Vitals/I&O/Wt Last Vital Signs Temp 98.1 F 02/10/25 13:40 Pulse 74 02/10/25 17:00 Resp 16 02/10/25 17:00 BP 157/111 02/10/25 16:37 Pulse Ox 100 02/10/25 17:00 O2 Del Method Room Air 02/10/25 18:04 02/10/25 02/10/25 02/10/25 06:59 14:59 22:59 Intake Total 0 / 0 Balance 0 / 0 Weight last 48 hrs Weight 74.843 kg Data 02/10/25 13:21 02/10/25 13:21 Micro: Microbiology 02/10/25 14:22 Blood Culture - Preliminary Blood SPECIMEN COLLECTED 02/10/25 14:19 Blood Culture - Preliminary Blood SPECIMEN COLLECTED A&P Assessment and plan 1. Amphetamine abuse: 2. Accelerated essential hypertension: 3. Tachycardia: 4. Shortness of breath: 5. Nausea & vomitin. Diarrhea: 7. Dehydration: 8. Leukocytosis: Plan: 34-year-old female with past medical history of polysubstance abuse with amphetamine and Suboxone presents to the ER today because of ongoing nausea, vomiting, diarrhea, weakness with episodes of difficulty in breathing ongoing for last 4 to 5 days. Polysubstance abuse: Abuse of Suboxone and amphetamines. Last use 4 days ago. As per patient he uses amphetamines daily. Symptoms of shortness of breath/nausea/vomiting/diarrhea most likely in setting of amphetamine withdrawal. Check HIV, hepatitis panel. Check blood cultures. [facility] protocol. Hypertension: Hypertensive urgency: Associated with episodes of tachycardia. Sinus. Goal blood pressure less than 140/90 mmHg. Start on amlodipine 10 mg oral daily, metoprolol 25 mg twice daily. Check limited echocardiogram. Shortness of breath: Most likely in setting of anxiety due to withdrawal from amphetamines. Appreciate CTA. No PE. No concern for CHF. Oxygen supplementation keeping saturation over 90%. Leukocytosis: Associated with polycythemia with hemoglobin of 17.7. Most likely in setting of dehydration. Cannot rule out occult infection. UA negative for signs of infection. Cannot rule out C. difficile though unlikely. Checking stool studies. CT chest negative for concerns for pneumonia. For now hold off on IV antibiotics. Follow-up blood cultures. Diarrhea: Check stool studies. Dehydration: Associated with leukocytosis/polycythemia. Most likely in setting of nausea, vomiting and diarrhea along with poor oral intake as per family member for last 4 to 5 days. Start on NS at 75 cc/h. Watch for fluid overload. Full code Cardiac diet Protonix for PUD prophylaxis Heparin for DVT prophylaxis. PDMP PDMP Reviewed: Not Reviewed Attestations Medical Necessity Statement*: Admission under observation for management of hypertensive urgency, leukocytosis, diarrhea leading to dehydration in a patient with polysubstance abuse Diagnoses Amphetamine abuse F15.10 Accelerated essential hypertension I10 Tachycardia R00.0 Shortness of breath R06.02 Nausea & vomiting R11.2 Diarrhea R19.7 Dehydration E86.0 Leukocytosis D72.829
[2025-02-10 18:40] LABS: Thyroid Stimulating Hormone 2.06 uIU/mL (0.27-4.20); Vitamin B12 331 pg/mL (232-1245)
[2025-02-10 18:50] LABS: Iron 93 ug/dL (37-145); Total Iron Binding Capacity 346 mcg/dl; Unsaturated Iron Binding 253 ug/dL (112-347)
[2025-02-10] MEDS: thiamine 100 mg/mL 2mL SDV IM (18:53)
[2025-02-10 19:43] LABS: Estmated Average Glucose 114; Hemoglobin A1C 5.6 % (4.0-6.0)
[2025-02-10] MEDS: ondansetron 2 mg/ML SDV 2 mL 4 MG IVP (20:03)
[2025-02-10] MEDS: LORazepam 1 MG/0.5 ML injection 2 MG IVP (20:03)
[2025-02-10 20:07] LABS: HIV 1 & 2 Antigen Non-Reactive (Non-Reactiv)
[2025-02-10 20:21] LABS: Troponin 5 6HR 52.34 ng/L (0-10); Troponin 5 6HR Delta 7.34 ng/L (0-12)
[2025-02-10 20:52] LABS: Hepatitis A Antibody IgM Non-Reactive (Nonreactive); Hepatitis B Surface Antigen Non-Reactive (Nonreactive)
[2025-02-11] VITALS: BP 130/83; PULSE 77; RESP 20; TEMP 36.6; O2SAT 99
[2025-02-11] MEDS: heparin 5,000 unit/mL INJ 1 mL 5000 UNIT SUBCUT ×2 (02:20→08:04)
[2025-02-11 03:50] VITALS: BP 130/82; PULSE 103; RESP 25; TEMP 36.6; O2SAT 96
[2025-02-11 05:21] LABS: Hematocrit 44.9 % (36-47); Hemoglobin 14.90 g/dL (11.27-16.99); Mean Corpuscular HGB Conc 33.2 g/dL (30-55); Mean Corpuscular Hemoglobin 29.6 pg (27-33); Mean Corpuscular Volume 89.1 fl (85-98); Nucleated Red Blood Cells % 0 %; Platelet Count 366 10^3/cmm (157-399); Red Blood Count 5.04 10^6/uL (3.85-5.65); White Blood Count 14.54 10^3/uL (3.29-11.43)
[2025-02-11 05:41] LABS: Alanine Aminotransferase 16 U/L (0-33); Albumin Level 3.2 g/dL (3.5-5.2); Alkaline Phosphatase 93 U/L (35-105); Anion Gap 13.0 (5-19); Aspartate Amino Transferase 16 U/L (0-32); Blood Urea Nitrogen 9 mg/dL (6-20); Calcium 7.7 mg/dL (8.5-10.5); Carbon Dioxide 24 mmol/L (22-29); Chloride 107 mmol/L (98-107); Creatinine Clr Calc Pharmacy 166.8836; Globulin 2.4 g/dL (1.3-4.6); Glucose 110 mg/dL (65-115); Magnesium 1.9 mg/dL (1.7-2.3); Osmolality Calculated 291 mOsm/kg (285-295); Potassium 3.0 mmol/L (3.5-5.1); Sodium 141 mmol/L (136-145); Total Protein 5.6 g/dL (6.6-8.7)
[2025-02-11 05:46] LABS: Cholesterol 176 mg/dL (0-200); HDL Cholesterol 33 mg/dL (60-100); Triglycerides 153 mg/dL (0-150)
[2025-02-11 05:48] LABS: Procalcitonin 0.04 ng/mL (0-0.5)
[2025-02-11 07:59] VITALS: BP 158/100; PULSE 103; RESP 19; TEMP 37; O2SAT 98
[2025-02-11] MEDS: multivitamin therapeutic Tablet 1 TAB PO (08:04)
[2025-02-11] MEDS: LORazepam 1 MG/0.5 ML injection 2 MG IVP (08:04)
--- NOTE | 2025-02-11 14:35 | P.DS_ITS ---
Discharge Providers Date of Admission: 02/10/25 17:02 Date of Discharge: February 11, 2025 Attending Provider at Admission: Amor Lynn MD Attending Provider at Discharge: Amor Lynn MD Primary Care Provider: Betina Lemon Diagnoses at Discharge Discharge Diagnosis 1. Amphetamine abuse: 2. Accelerated essential hypertension: 3. Tachycardia: 4. Shortness of breath: 5. Nausea & vomitin. Diarrhea: 7. Dehydration: 8. Leukocytosis: Reason for Visit Reason for Visit: SOB Hospital Course Hospital Course Rowan Howell is a 34 year old female with past medical history of polysubstance abuse with amphetamines and Suboxone, previously admitted for hy pertensive urgency. She did not ER today because of persistent nausea, vomiting, generalized weakness for last 4 days. Patient accompanied by her grandmother. As per the patient she uses amphetamines daily but has not used for the last 4 days prior to all the symptoms started. As per the ER physician when she presented to the ER she was hypotensive for which she received 1 L IV fluid bolus after which she became short of breath. CT chest abdomen ruled out for pneumonia. Subsequently she was found to be hypotensive tachycardic. Hospitalist service was consulted for further management. She was admitted for further evaluation and management and was started on IV fluid hydration. She was started on oral antihypertensives with amlodipine and metoprolol. Patient hospitalization was otherwise unremarkable. She did have episodes of nausea and vomiting which was managed with PPIs and modification of her diet. It is believed patient's symptoms are mostly in setting of withdrawal from amphetamines. Patient was counseled in detail regarding abstinence and she verbalized understanding. She has been discharged in hemodynamically stable condition on oral amlodipine 10 mg daily, Coreg 12.5 mg twice daily with advised to follow-up with her PCP as an outpatient. Patient did have leukocytosis on admission for which blood cultures were obtained and has remained so far negative. Patient remained afebrile off antibiotics during hospitalization. Physical Exam Narrative: General: No acute distress, AO x3 HEENT: PERRLA, pupils bilaterally equal and reactive Chest: Normal vesicular breath sounds, no added sounds, equal good air entry bilaterally CVS: S1-S2 regular, no murmurs, no tachycardia, no gallops, no rubs Abdomen: Soft, nontender, no organomegaly, bowel sounds present Neuro: No focal deficits, no facial deformity, AO x3, power 5/5 in all limbs Discharge Data Studies Completed and Pending Completed Studies During Hospitalization Category Date Time Status CT angio chest PE protcl [id number] Stat Cat Scan 02/10/25 15:01 Completed XR chest 1V portable [id number] Stat Exams 02/10/25 13:57 Completed Pending at discharge Category Date Time Status Bacterial Antigen Stat Lab 02/10/25 17:10 Ordered Blood Culture Stat Lab 02/10/25 14:22 Results C.Diff PCR (Lab) Routine Lab 02/10/25 17:10 Ordered Complete Blood Count w/Auto AM LABS Lab 02/12/25 04:00 Ordered Complete Blood Count w/Auto AM LABS Lab 02/13/25 04:00 Ordered Comprehensive Metabolic Panel AM LABS Lab 02/12/25 04:00 Ordered Comprehensive Metabolic Panel AM LABS Lab 02/13/25 04:00 Ordered Lactoferrin Routine Lab 02/10/25 17:10 Ordered Magnesium AM LABS Lab 02/12/25 04:00 Ordered Magnesium AM LABS Lab 02/13/25 04:00 Ordered OVA and Parasites, Conc and PE Routine Lab 02/10/25 17:10 Ordered Phosphorus AM LABS Lab 02/12/25 04:00 Ordered Phosphorus AM LABS Lab 02/13/25 04:00 Ordered Salmonella / Shigella / Campy Routine Lab 02/10/25 17:10 Ordered CV. echo limited [id number] Routine Ultrasound 02/11/25 18:19 Taken Radiology Impressions Chest X-Ray 02/10/25 13:57 IMPRESSION: No acute findings. Chest CTA 02/10/25 15:01 IMPRESSION: 1. No evidence for pulmonary embolism. 2. Possible left ventricular wall hypertrophy, which can be assessed with echocardiography. Microbiology 02/10/25 14:22 Blood Blood Culture - Preliminary NEGATIVE TO DATE 02/10/25 14:19 Blood Blood Culture - Preliminary NEGATIVE TO DATE Laboratory Results WBC 14.54 10^3/uL (3.29-11.43) H 02/11/25 04:47 RBC 5.04 10^6/uL (3.85-5.65) 02/11/25 04:47 Hgb 14.90 g/dL (11.27-16.99) 02/11/25 04:47 Hct 44.9 % (36-47) 02/11/25 04:47 MCV 89.1 fl (85-98) D 02/11/25 04:47 MCH 29.6 pg (27-33) 02/11/25 04:47 MCHC 33.2 g/dL (30-55) 02/11/25 04:47 RDW 13.2 % (12.1-15.1) 02/11/25 04:47 Plt Count 366 10^3/cmm (157-399) 02/11/25 04:47 MPV 9.0 fL (7.4-10.4) 02/11/25 04:47 Neut % (Auto) 58.7 % 02/11/25 04:47 Lymph % (Auto) 31.7 % 02/11/25 04:47 [place] % (Auto) 7.6 % 02/11/25 04:47 Eos % (Auto) 1.3 % 02/11/25 04:47 Baso % (Auto) 0.3 % 02/11/25 04:47 Neut # (Auto) 8.53 10^3/uL (1.8-7.7) H 02/11/25 04:47 Lymph # (Auto) 4.6 10^3/uL (0.8-4.8) 02/11/25 04:47 [place] # (Auto) 1.1 10^3/uL (0.2-0.9) H 02/11/25 04:47 Eos # (Auto) 0.2 10^3/uL (0.0-0.8) 02/11/25 04:47 Baso # (Auto) 0.0 10^3/uL (0.0-0.1) 02/11/25 04:47 Nucleated RBC % (auto) 0 % 02/11/25 04:47 Nucleated RBCs # 0.0 /100WBC 02/11/25 04:47 Specimen Type Arterial 02/10/25 14:18 Sample Site Radial, left 02/10/25 14:18 ABG pH 7.54 (7.35-7.45) H 02/10/25 14:18 ABG pCO2 33.0 mmHg (35-45) L 02/10/25 14:18 ABG pO2 88.9 mmHg (80.0-100.0) 02/10/25 14:18 ABG PO2/FiO2 Ratio 423 02/10/25 14:18 ABG HCO3 28.1 mmol/L (22-26) H 02/10/25 14:18 ABG O2 Saturation 98.2 02/10/25 14:18 ABG Base Excess 5.9 mmol/L (-2.0-2.0) H 02/10/25 14:18 Kaleb Test Pos 02/10/25 14:18 A-a O2 Gradient 2.5 mmHg (5-10) L 02/10/25 14:18 Hematocrit 53.4 % (37-47) H 02/10/25 14:18 Hgb O2 Saturation 96.2 % (95-100) 02/10/25 14:18 Carboxyhemoglobin 1.2 %THgb (0.4-20.1) 02/10/25 14:18 Methemoglobin 0.8 % (0.4-1.5) 02/10/25 14:18 Total Hemoglobin 17.4 g/dL (12-16) H 02/10/25 14:18 Sodium 135.0 mmol/L (131-143) 02/10/25 14:18 Potassium 3.1 mmol/L (3.5-5.0) L 02/10/25 14:18 Glucose 154.0 mg/dL (70-115) H 02/10/25 14:18 Ionized Calcium 1.1 mmol/L (1.1-1.4) 02/10/25 14:18 O2 Delivery Device Room air 02/10/25 14:18 FiO2 21.0 % 02/10/25 14:18 Central Lab Technician ID Amh 02/10/25 14:18 Sodium 141 mmol/L (136-145) 02/11/25 04:47 Potassium 3.0 mmol/L (3.5-5.1) L 02/11/25 04:47 Chloride 107 mmol/L (98-107) 02/11/25 04:47 Carbon Dioxide 24 mmol/L (22-29) 02/11/25 04:47 Anion Gap 13.0 (5-19) 02/11/25 04:47 BUN 9 mg/dL (6-20) 02/11/25 04:47 Creatinine 0.5 mg/dL (0.5-0.9) 02/11/25 04:47 GFR Calculation 140.4 mL/min (90-130) H 02/11/25 04:47 Glucose 110 mg/dL (65-115) 02/11/25 04:47 Estimat Average Glucose 114 02/10/25 18:03 Hemoglobin A1c 5.6 % (4.0-6.0) 02/10/25 18:03 Calculated Osmolality 291 mOsm/kg (285-295) 02/11/25 04:47 Lactic Acid 3.0 mmol/L (0.5-2.2) H 02/10/25 13:21 Lactic Acid (Sepsis) 2.5 mmol/L (0.5-2.2) H 02/10/25 16:41 Calcium 7.7 mg/dL (8.5-10.5) L 02/11/25 04:47 Phosphorus 2.3 mg/dL (2.5-4.5) L 02/11/25 04:47 Magnesium 1.9 mg/dL (1.7-2.3) 02/11/25 04:47 Iron 93 ug/dL (37-145) 02/10/25 13:21 TIBC 346 mcg/dl 02/10/25 13:21 % Saturation 26.8 % (20-50) 02/10/25 13:21 Unsat Iron Binding 253 ug/dL (112-347) 02/10/25 13:21 Total Bilirubin 1.5 mg/dL (0.15-1.2) H 02/11/25 04:47 AST 16 U/L (0-32) 02/11/25 04:47 ALT 16 U/L (0-33) 02/11/25 04:47 Alkaline Phosphatase 93 U/L (35-105) 02/11/25 04:47 Troponin T Baseline 45 ng/L (0-10) H 02/10/25 13:21 Troponin T 120 Minute 41.59 ng/L (0-10) H 02/10/25 15:05 Delta Troponin T -3.41 ABS# (0-10) L 02/10/25 15:05 Troponin T Hi Sens 6Hr 52.34 ng/L (0-10) H 02/10/25 19:55 Troponin T Hi Sens 6Hr Delta 7.34 ng/L (0-12) 02/10/25 19:55 C-Reactive Protein 8.0 mg/L (0.0-4.9) H 02/10/25 13:21 NT-Pro-B Natriuret Pep 4809 pg/mL (0-125) H 02/10/25 13:21 Total Protein 5.6 g/dL (6.6-8.7) L D 02/11/25 04:47 Albumin 3.2 g/dL (3.5-5.2) L 02/11/25 04:47 Globulin 2.4 g/dL (1.3-4.6) 02/11/25 04:47 Triglycerides 153 mg/dL (0-150) H 02/11/25 04:47 Cholesterol 176 mg/dL (0-200) 02/11/25 04:47 LDL Cholesterol, Calc 112 mg/dL (50-129) 02/11/25 04:47 HDL Cholesterol 33 mg/dL (60-100) L 02/11/25 04:47 LDL/HDL Ratio 3.39 RATIO (0.00-3.22) H 02/11/25 04:47 Cholesterol/HDL Ratio 5.33 mg/dL (0.0-4.40) H 02/11/25 04:47 Vitamin B12 331 pg/mL (232-1245) 02/10/25 13:21 Folate 9.9 ng/mL (4.8-37.3) 02/11/25 04:47 Procalcitonin 0.04 ng/mL (0-0.5) 02/11/25 04:47 TSH 2.06 uIU/mL (0.27-4.20) 02/10/25 13:21 HCG, Qual Negative (Negative) 02/10/25 13:21 Urine Color Yellow (Yellow) 02/10/25 15:31 Urine Appearance Clear (CLEAR) 02/10/25 15:31 Urine pH 6.0 (5-7) 02/10/25 15:31 Ur Specific [place] 1.015 (1.005-1.030) 02/10/25 15:31 Urine Protein 1+ (Negative) A 02/10/25 15:31 Urine Glucose (UA) Negative (Normal) 02/10/25 15:31 Urine Ketones Trace (Negative) 02/10/25 15:31 Urine Blood Trace (Negative) A 02/10/25 15:31 Urine Nitrate Negative (Negative) 02/10/25 15:31 Urine Bilirubin Negative (Negative) 02/10/25 15:31 Urine Urobilinogen 1.0 mg/dL (Negative) 02/10/25 15:31 Ur Leukocyte Esterase Negative (Negative) 02/10/25 15:31 Urine RBC 0-2 /hpf (0-2) 02/10/25 15:31 Urine WBC 0-5 /hpf (0-5) 02/10/25 15:31 Ur Squamous Epith Cells 0-5 /hpf (0-5) 02/10/25 15:31 Amorphous Sediment Not Reportable 02/10/25 15:31 Urine Bacteria None seen /hpf (NONE) 02/10/25 15:31 Hyaline Casts 7.01 /lpf 02/10/25 15:31 Urine Opiates Screen Negative ng/mL (Negative) 02/10/25 15:31 Ur Barbiturates Screen Negative ng/mL (Negative) 02/10/25 15:31 Ur Phencyclidine Scrn Negative ng/mL (Negative) 02/10/25 15:31 Ur Amphetamines Screen Positive ng/mL (Negative) H 02/10/25 15:31 U Benzodiazepines Scrn Negative ng/mL (Negative) 02/10/25 15:31 Urine Cocaine Screen Negative ng/mL (Negative) 02/10/25 15:31 U Marijuana (THC) Screen Positive ng/mL (Negative) H 02/10/25 15:31 Hepatitis A IgM Ab Non-reactive (Nonreactive) 02/10/25 18:56 Hep Bs Antigen Non-reactive (Nonreactive) 02/10/25 18:56 Hep Bs Antibody 31.0 (11.5-1000) 02/10/25 18:56 Hep B Core Total Ab Non-reactive (Nonreactive) 02/10/25 18:56 Hepatitis C Antibody Non-reactive (Nonreactive) 02/10/25 18:56 HIV 1&2 Ab & HIV 1 Ag Non-reactive (Non-Reactiv) 02/10/25 18:56 HIV 1&2 Antibody Non-reactive (Non-Reactiv) 02/10/25 18:56 Influenza A (PCR) Negative (Negative) 02/10/25 14:00 Influenza Type B (PCR) Negative (Negative) 02/10/25 14:00 RSV (PCR) Negative (Negative) 02/10/25 14:00 SARS-CoV-2 (PCR) Negative (Negative) 02/10/25 14:00 Vitals Last Vital Signs Temp 98.6 F 02/11/25 07:59 Pulse 103 H 02/11/25 07:59 Resp 19 H 02/11/25 07:59 BP 158/100 02/11/25 07:59 Pulse Ox 98 02/11/25 07:59 O2 Del Method Room Air 02/11/25 03:50 Discharge Plan Discharge Patient Disposition: Home Condition: Stable Prescriptions: New amlodipine 10 mg Tablet 10 mg PO DAILY Qty: 30 0RF carvedilol [Coreg] 12.5 mg tablet 12.5 mg PO BID Qty: 60 0RF Rx Instructions: must administer with a meal/food No Action No Known Home Medications Discharge Order = DC NOW: Discharge Order (Routine); Ordered 02/11/25 Ordered By: Amor Lynn Referrals: Betina Lemon PA [Primary Care Provider, [facility]] - 2 weeks Referral Note: We have notified your physician's clinic of the need for a follow-up appointment to be scheduled. If you have not heard from them within the next 2 business days, please call them directly. Patient Instructions: Opioid Safety, Patient Portal & Asael Instructions Discharge Attestations Time Spent in Discharge Care*: greater than 30 min Specific Discharge Activities: educating patient, educating and/or supporting family/caregiver, discussing with pcp/other providers, discussing with insurance case manager/social workers/dc planners, documenting/other paperwork and evaluating patient/reviewing data Status at Discharge: Cognitive status at discharge: cognitively intact , Behavioral status at discharge: cooperative , Functional status at discharge: independent ambulation , Overall status at discharge: patient is back to baseline Quality Metrics Clinical Quality Measures [ No reported AMI, CVA or VTE this stay] Coding Level of Care Code 79928 Total time (in minutes) for Discharge: 65 Diagnoses Amphetamine abuse F15.10 Accelerated essential hypertension I10 Tachycardia R00.0 Shortness of breath R06.02 Nausea & vomiting R11.2 Diarrhea R19.7 Dehydration E86.0 Leukocytosis D72.829
--- NOTE | 2025-02-11 14:55 | PC.NURSE ---
Patient discharged to home. Instructed patient on follow up information and new medications. Patient verbalized understanding. Provided patient with resource book. Patient indicated desire for [employer] information for education. Patient expressed thanks. Removed IVs and telemetry prior to discharge. patient left ambulatory to private vehicle. No distress observed.
--- NOTE | 2025-02-11 18:19 | USCV_ITS ---
Rowan Howell Age: 34 Gender: F : 1990 Exam Date: 02/11/2025 09:19 Ordering Phys: Amor Lynn MD Technologist: Cesar Chase Exam Location: [facility] [place] Indication: possible infective indocarditis BP: 130 / 82 HR: Rhythm: Sinus Technical Quality: Adequate MEASUREMENTS (Male / Female) Normal Values 2D ECHO LV Diastolic Diameter PLAX 4.6 cm 4.2 - 5.9 / 3.9 - 5.3 cm IVS Diastolic Thickness 1.6 cm 0.6 - 1.0 / 0.6 - 0.9 cm IVS Systolic Thickness 1.6 cm LVPW Diastolic Thickness 1.3 cm 0.6 - 1.0 / 0.6 - 0.9 cm LVPW Systolic Thickness 1.7 cm LVOT Diameter 2.0 cm LV Ejection Fraction 2D Teich 48.8 % LV Ejection Fraction MOD 4C 54.0 % LV Ejection Fraction MOD 2C 43.6 % LV Ejection Fraction 2C AL 45.9 % LA Diameter 3.0 cm RA Systolic Volume 4C AL 18.9 ml RA Systolic Volume 4C MOD 16.3 ml LA Sys Volume AL 37.5 cm cubed LA Sys Volume Index AL 19.7 cm cubed/m squared Aorta at Sinotubular Diameter 2.1 cm IVC Diameter 1.3 cm M-MODE LA Ao Ratio MM 1.3 AV Cusp Separation MM 2.1 cm FINDINGS Left Ventricle Normal left ventricular size, systolic function and wall thickness, with no regional wall motion abnormalities. Left ventricular ejection fraction is estimated at 55 %. Right Ventricle Right Atrium Left Atrium Mitral Valve Aortic Valve Tricuspid Valve Pulmonic Valve Pericardium Aorta IVC CONCLUSIONS Limited echo Normal left ventricular size, systolic function and wall thickness, with no regional wall motion abnormalities. Left ventricular ejection fraction is estimated at 55 %. There is no pericardial effusion. Saurabh River MD (Electronically Signed) Final Date: 11 February 2025 17:26 S
== END 2025-02-11 14:58 | disposition home or self-care (01) ==
LOC: ER 16:45 → CSU 17:02
PROVIDERS: Admitting Provider Student in an Organized Health Care Education/Training Program; Emergency Provider Emergency Medicine; PCP Physician Assistant; Visit Provider Student in an Organized Health Care Education/Training Program
DX: R11.2 Nausea with vomiting, unspecified (principal); F15.10 Other stimulant abuse, uncomplicated; I10 Essential (primary) hypertension; R00.0 Tachycardia, unspecified; R06.02 Shortness of breath; R19.7 Diarrhea, unspecified; E86.0 Dehydration; D72.829 Elevated white blood cell count, unspecified; F17.200 Nicotine dependence, unspecified, uncomplicated
CPT/HCPCS: 36415; 36600; 71045; 71275; 80051; 80053; 80061; 80306; 81001; 82330; 82607; 82746; 82805; 83036; 83540; 83550; 83605; 83735; 83880; 84100; 84145; 84443; 84484; 84703; 85025; 86140; 86705; 86706; 86709; 86803; 87040; 87340; 87637; 87806; 93005; 93308; 94664; 96361; 96372; 96374; 96375; 99285; G0378; J1644; J2060; J2405; J2470; J3411; J7030; J9999

== ENCOUNTER → 2025-07-06 15:55 | Outpatient (BNVA) | payer BC, MEDICAID, SELFPAY | PROVIDERS: PCP Physician Assistant; Referring Provider Internal Medicine; Visit Provider Internal Medicine Cardiovascular Disease | DX: R07.9 Chest pain, unspecified (principal) | CPT/HCPCS: 93005 ==